=== PATIENT | male | born 1930 | race Caucasian/White ===

== ENCOUNTER 2018-05-15 11:49 | Inpatient (IN) | payer MEDICARE, BC ==
[2018-05-15] MEDS ORDERED: SODIUM CHLORIDE 0.9% 1,000 ML IV STA (12:01)
[2018-05-15] MEDS ORDERED: HEPARIN SODIUM,PORCINE 5,000 UNIT/ML 1 ML VIAL IV PRN (12:02)
[2018-05-15] MEDS ORDERED: HEPARIN SODIUM,PORCINE 5,000 UNIT/ML 1 ML VIAL IV ONE (12:02)
[2018-05-15] MEDS ORDERED: NITROGLYCERIN-D5W PMX 50 MG in DEXTROSE/WATER 1 250ML.BAG IV ONE (12:02)
[2018-05-15] MEDS ORDERED: HEPARIN SOD,PORK IN 0.45% NACL 25,000 UNIT in 0.45% NACL 1 250ML.BAG IV SCH (12:15)
[2018-05-15 12:26] LABS: Basophils % (A) 0 %; Eosinophils # (A) 0.1 k/uL (0-0.7); Eosinophils % (A) 1 %; HCT 42.2 % (39.0-53.0); HGB 13.4 gm/dL (13.0-17.5); Lymphocytes # (A) 1.2 k/uL (1.0-4.8); Lymphocytes % (A) 12 %; MCH 31.3 pg (25.0-35.0); MCHC 31.7 g/dL (31.0-37.0); MCV 98.6 fL (80.0-100.0); Mean Platelet Volume 7.3; Monocytes # (A) 0.6 k/uL (0-1.0); Monocytes % (A) 6 %; Neutrophils # (A) 7.8 k/uL (1.3-7.7); Neutrophils % (A) 79 %; Platelet Count 171 k/uL (150-450); RBC 4.28 m/uL (4.30-5.90); RDW 13.3 % (11.5-15.5); WBC 9.9 k/uL (3.8-10.6)
[2018-05-15] MEDS: HEPARIN SOD,PORK IN 0.45% NACL 25,000 UNIT in 0.45% NACL 1 250ML.BAG IV SCH (12:26)
[2018-05-15] MEDS ORDERED: METOPROLOL TARTRATE 5 MG/5 ML VIAL IVP STA (12:28)
[2018-05-15] MEDS ORDERED: METOPROLOL TARTRATE 50 MG TAB PO STA (12:28)
[2018-05-15] MEDS ORDERED: ATORVASTATIN 80 MG TAB PO STA (12:30)
[2018-05-15] MEDS ORDERED: AMIODARONE 450 MG in DEXTROSE 5% IN WATER 250 ML IV ONE ×2 (12:30)
--- NOTE | 2018-05-15 12:30 | ED ---
Chest Pain HPI - General Chief Complaint: Chest Pain Stated Complaint: Post cardiac arrest Time Seen by Provider: 05/15/18 12:01 Source: patient, EMS, RN notes reviewed, old records reviewed Mode of arrival: EMS Limitations: no limitations - History of Present Illness Initial Comments: This is an 88-year-old male to the ER for evaluation, patient since today for evaluation in transfer and regards to chest pain, originally called EMS and chest pain was taken to [facility]. Upon arrival at [facility] he had a ventricular fibrillation arrest. CPR was started patient was defibrillated and is currently in atrial fibrillation. Patient is transferred again to emergency room. Patient continues to have chest pain upon arrival. History obtained from patient's chart as well as EMS - Related Data Home Medications Medication Instructions Recorded Confirmed Aspirin 1 tab PO DAILY 09/18/13 09/23/13 Atenolol [Tenormin] 0.5 tab PO BID 09/18/13 09/23/13 Azelastine HCl [Astepro] 1 spr NASAL DAILY 09/18/13 09/23/13 Multivitamin/Iron/Folic Acid 1 tab PO DAILY 09/18/13 09/23/13 [Centrum Complete Multivit Tab] Naproxen 1 tab PO BID PRN 09/18/13 09/23/13 Nitroglycerin Sl Tabs [Nitrostat] 1 tab SUBLINGUAL DIRECTED PRN 09/18/1307/03 Travoprost [Travatan Z 0.004%] 1 drop BOTH EYES DAILY 09/18/13 09/23/13 Timolol [Betimol 0.5% Ophth Soln] 1 drop BOTH EYES DAILY 09/21/13 09/23/13 Previous Rx's Medication Instructions Recorded Clopidogrel [Plavix] 75 mg PO DAILY #90 tablet 09/24/13 Pravastatin Sodium [Pravachol] 20 mg PO DAILY #90 tab 09/24/13 Allergies Allergy/AdvReac Type Severity Reaction Status Date / Time No Known Allergies Allergy Verified 05/15/18 12:01 Review of Systems ROS Statement: Those systems with pertinent positive or pertinent negative responses have been documented in the HPI. ROS Other: All systems not noted in ROS Statement are negative. Past Medical History Past Medical History: Chest Pain / Angina, CVA/TIA, Dementia, Eye Disorder, Hearing Disorder / Deafness, Hyperlipidemia, Osteoarthritis (OA), Prostate Disorder Additional Past Medical History / Comment(s): GLAUCOMA. Hepatitis (surgical per pt) History of Any Multi-Drug Resistant Organisms: None Reported Past Surgical History: Heart Catheterization, Hernia Repair, Joint Replacement, Orthopedic Surgery Past Anesthesia/Blood Transfusion Reactions: No Reported Reaction Past Psychological History: No Psychological Hx Reported Smoking Status: Never smoker Past Alcohol Use History: None Reported Past Drug Use History: None Reported - Past Family History Mother Family Medical History: CVA/TIA Father Family Medical History: Cancer Additional Family Medical History / Comment(s): brain ca Brother(s) Family Medical History: Cancer, Coronary Artery Disease (CAD) Additional Family Medical History / Comment(s): 1 brother CAD & the other brother liver ca General Exam Limitations: no limitations General appearance: alert, in no apparent distress, anxious Head exam: Present: atraumatic, normocephalic, normal inspection Eye exam: Present: normal appearance, PERRL, EOMI. Absent: scleral icterus, conjunctival injection, periorbital swelling ENT exam: Present: normal exam, mucous membranes moist Neck exam: Present: normal inspection. Absent: tenderness, meningismus, lymphadenopathy Respiratory exam: Present: normal lung sounds bilaterally. Absent: respiratory distress, wheezes, rales, rhonchi, stridor Cardiovascular Exam: Present: regular rate, normal rhythm, normal heart sounds. Absent: systolic murmur, diastolic murmur, rubs, gallop, clicks GI/Abdominal exam: Present: soft, normal bowel sounds. Absent: distended, tenderness, guarding, rebound, rigid Extremities exam: Present: normal inspection, full ROM, normal capillary refill. Absent: tenderness, pedal edema, joint swelling, calf tenderness Back exam: Present: normal inspection Neurological exam: Present: alert, oriented X3, CN II-XII intact Psychiatric exam: Present: normal affect, normal mood Skin exam: Present: warm, dry, intact, normal color. Absent: rash Course Vital Signs 05/15/18 12:01 Temperature 98.1 F Pulse Rate 79 Respiratory 18 Rate Blood Pressure 130/99 O2 Sat by Pulse 95 Oximetry - Reevaluation(s) Reevaluation #1: 05/15/18 12:32 Medical records reviewed including prior EKG Reevaluation #2: 05/15/18 12:32 Spoke with cardiology, patient presentation, were able to see both EKGs as well as prior EKGs. Dr. Donovan did come and evaluate patient in the emergency room Chest Pain MDM - MDM This 88 male the ER with known history of severe coronary artery disease, patient will be taken to the [facility] regarding ventricular fibrillation arrest secondary to acute coronary syndrome. Patient currently on heparin, nitro, given low dose beta tristan as well as amiodarone. Critical Care Time Critical Care Time: Yes Total Critical Care Time: 31 Disposition Clinical Impression: Ventricular fibrillation, Cardiopulmonary arrest with successful resuscitation , ST elevation myocardial infarction (STEMI) Disposition: ADMITTED IP TO THIS HOSP Condition: Critical Is patient prescribed a controlled substance at d/c from ED?: No Referrals: Gary Kimble MD [Primary Care Provider] - 1-2 days
[2018-05-15 12:33] LABS: INR 1.1 (<1.2); Prothrombin Time 11.8 sec (9.0-12.0)
[2018-05-15] MEDS ORDERED: METOPROLOL TARTRATE 25 MG TAB PO STA (12:33)
--- NOTE | 2018-05-15 12:40 | P.CRDCN ---
History of Present Illness Chief complaint: ami, st elevation History of present illness: This is Dr. Aguilar dictating a consult on this patient The patient was interviewed and examined by me Patient is seen in the emergency room urgent consult IMPRESSION / ASSESSMENT: Acute ST elevation inferior posterior RI transferred after cardiac arrest from [facility] PLAN: IV meter protocol 2.5-5 mg, by mouth metoprolol 50 mg by mouth 1, atorvastatin 80 mg by mouth, IV amiodarone 150 mrem slowly over 30 minutes Urgent coronary angiography and appropriate intervention if feasible Discussed with Dr. Lopez HPI Patient started experiencing chest discomfort today and called the EMS. When EMS arrived he went into ventricular fibrillation and was resuscitated and then transferred to [facility]. Received a call from [facility] the patient is being transferred over here with possible ST elevation RI When he arrived I was called by the ER physician Dr. Reynolds Patient is still experiencing chest pain on IV nitroglycerin. His first 12- lead ECG here confirmed an ST elevation RI acute, inferior posterior and lateral Vitals stable blood pressure 128 mmHg systolic Heart rate in the 80s Past history of known coronary artery disease with severe calcific occlusive disease multiple segmental lesions in LAD diagonal intermediate and OM branches Past coronary angiography in 2013. On medical treatment. Unable to tolerate statins. Followed by Dr. Kamryn HAGER: No fever chills or rigors, no cough, phlegm or expectoration, no nausea, vomiting or diarrhea, no hematuria, dysuria, no musculoskeletal complaints, no strokes or seizures, no skin lesions. EXAMINATION Vitals stable patient still having pain Breath sounds reduced bilaterally but no rhonchi no crackles Heart sounds S1-S2 are soft no murmurs or gallops no rub Abdomen soft nontender External days warm no edema No respiratory distress REVIEW OF LABS, ECG Underlying atrial fibrillation and twelve-lead ECG with ST elevation in the high lateral leads with significant ST depression in V1 and V2 V3 and V4 as well as 3 and aVF consistent with a large inferoposterolateral acute RI Past Medical History Past Medical History: Chest Pain / Angina, CVA/TIA, Dementia, Eye Disorder, Hearing Disorder / Deafness, Hyperlipidemia, Osteoarthritis (OA), Prostate Disorder Additional Past Medical History / Comment(s): GLAUCOMA. Hepatitis (surgical per pt) History of Any Multi-Drug Resistant Organisms: None Reported Past Surgical History: Heart Catheterization, Hernia Repair, Joint Replacement, Orthopedic Surgery Past Anesthesia/Blood Transfusion Reactions: No Reported Reaction Past Psychological History: No Psychological Hx Reported Smoking Status: Never smoker Past Alcohol Use History: None Reported Past Drug Use History: None Reported - Past Family History Mother Family Medical History: CVA/TIA Father Family Medical History: Cancer Additional Family Medical History / Comment(s): brain ca Brother(s) Family Medical History: Cancer, Coronary Artery Disease (CAD) Additional Family Medical History / Comment(s): 1 brother CAD & the other brother liver ca Medications and Allergies Home Medications Medication Instructions Recorded Confirmed Type Aspirin 1 tab PO DAILY 09/18/13 09/23/13 History Atenolol [Tenormin] 0.5 tab PO BID 09/18/13 09/23/13 History Azelastine HCl [Astepro] 1 spr NASAL DAILY 09/18/13 09/23/13 History Multivitamin/Iron/Folic Acid 1 tab PO DAILY 09/18/13 09/23/13 History [Centrum Complete Multivit Tab] Naproxen 1 tab PO BID PRN 09/18/13 09/23/13 History Nitroglycerin Sl Tabs [Nitrostat] 1 tab SUBLINGUAL DIRECTED PRN 09/18/1307/03 History Travoprost [Travatan Z 0.004%] 1 drop BOTH EYES DAILY 09/18/13 09/23/13 History Timolol [Betimol 0.5% Ophth Soln] 1 drop BOTH EYES DAILY 09/21/13 09/23/13 History Clopidogrel [Plavix] 75 mg PO DAILY #90 tablet 09/24/13 Rx Pravastatin Sodium [Pravachol] 20 mg PO DAILY #90 tab 09/24/13 Rx Allergies Allergy/AdvReac Type Severity Reaction Status Date / Time No Known Allergies Allergy Verified 05/15/18 12:01 Physical Exam Vitals: Vital Signs Temp Pulse Resp BP Pulse Ox 05/15/18 12:01 98.1 F 79 18 130/99 95 Intake and Output 05/14/18 05/15/18 05/15/18 22:59 06:59 14:59 Other: Weight 77.111 kg Results 05/15/18 12:02 CBC 05/15/18 Range/Units 12:02 WBC 9.9 (3.8-10.6) k/uL RBC 4.28 L (4.30-5.90) m/uL Hgb 13.4 (13.0-17.5) gm/dL Hct 42.2 (39.0-53.0) % Plt Count 171 (150-450) k/uL Current Medications Generic Name Dose Route Start Last Admin Trade Name Freq PRN Reason Stop Dose Admin Heparin Sodium (Porcine) 0 unit 05/15/18 12:02 Heparin IV PER PROTOCOL PRN Low PTT Protocol Nitroglycerin/Dextrose 50 mg/ 250 mls @ 6 mls/hr 05/15/18 12:02 05/15/18 12: 15 IV Solution IV 05/16/18 12:01 10 mcg/min .Q24H ONE 3 mls/hr Administration Protocol 20 MCG/MIN Sodium Chloride 1,000 mls @ 100 mls/hr 05/15/18 12:01 Saline 0.9% IV 05/15/18 22:00 .Q10H STA Heparin Sodium/Sodium Chloride 250 mls @ 9.25 mls/hr 05/15/18 12:12 05/15/18 12:26 25,000 unit/ Sodium Chloride IV 12 units/kg/hr .Q24H AMIRAH 9.25 mls/hr Administration Protocol 12 UNITS/KG/HR Amiodarone HCl 450 mg/ 259 mls @ 34.53 mls/hr 05/15/18 12:30 Dextrose/Water IV 05/15/18 20:00 .Q7H31M ONE Protocol 1 MG/MIN Intake and Output 05/14/18 05/15/18 05/15/18 22:59 06:59 14:59 Other: Weight 77.111 kg Patient Weight 05/16/18 06:59 Weight 77.111 kg 05/15/18 12:02
[2018-05-15] MEDS ORDERED: NITROGLYCERIN SL TABS 0.4 MG TAB SUBLINGUAL PRN ×2 (12:44→15:33)
[2018-05-15] MEDS ORDERED: SODIUM CHLORIDE 0.9% 1,000 ML IV SCH ×2 (12:45→15:45)
[2018-05-15 12:57] LABS: ALT 71 U/L (21-72); AST 67 U/L (17-59); Albumin 3.5 g/dL (3.5-5.0); Alkaline Phosphatase 60 U/L (38-126); Anion Gap 8 mmol/L; Blood Urea Nitrogen 22 mg/dL (9-20); Calcium 8.6 mg/dL (8.4-10.2); Carbon Dioxide 23 mmol/L (22-30); Chloride 109 mmol/L (98-107); Glucose 147 mg/dL (74-99); Magnesium 1.8 mg/dL (1.6-2.3); Potassium 4.1 mmol/L (3.5-5.1); Sodium 140 mmol/L (137-145); Total Bilirubin 0.6 mg/dL (0.2-1.3); Total Protein 6.6 g/dL (6.3-8.2)
[2018-05-15 12:58] LABS: Partial Thromboplastin Time 60.7 sec (22.0-30.0)
[2018-05-15] MEDS ORDERED: IV FLUID CONTINUATION 950 ML IV ONE (13:00)
[2018-05-15] MEDS ORDERED: SODIUM CHLORIDE 0.9% 1,000 ML IV ONE (13:00)
[2018-05-15 13:02] LABS: Creatine Kinase MB 2.4 ng/mL (0.0-2.4)
[2018-05-15] MEDS ORDERED: MIDAZOLAM 2 MG/2 ML VIAL IVP ONE (13:04)
[2018-05-15] MEDS ORDERED: LIDOCAINE 1% INJ 10MG/ML (20 ML MDV) SQ ONE ×2 (13:09→14:30)
[2018-05-15 13:14] LABS: Troponin I 0.036 ng/mL (0.000-0.034)
[2018-05-15] MEDS ORDERED: BIVALIRUDIN BOLUS 250 MG/50 ML IV ONE (13:22)
[2018-05-15] MEDS ORDERED: BIVALIRUDIN 250 MG in SODIUM CHLORIDE 0.9% 50 ML IV ONE ×2 (13:23→14:10)
[2018-05-15] MEDS ORDERED: IOPAMIDOL-370 125ML BTL INJ ONE (13:38)
[2018-05-15] MEDS ORDERED: VERAPAMIL 2.5 MG/ML 2 ML AMP ONE (14:23)
[2018-05-15] MEDS ORDERED: LIDOCAINE 1% INJ 10MG/ML (20 ML MDV) ONE (14:23)
[2018-05-15] MEDS ORDERED: LIDOCAINE 1% 20 ML VIAL (10MG/ML) FOR IV START SQ ONE (14:30)
[2018-05-15] MEDS ORDERED: VERAPAMIL SYRINGE (5 MG/10 ML) INTRAARTER ONE (14:31)
[2018-05-15] MEDS ORDERED: IOPAMIDOL-370 100ML BTL INJ ONE ×2 (14:35→15:17)
[2018-05-15] MEDS ORDERED: ONDANSETRON 4 MG/2 ML VIAL ONE (14:36)
[2018-05-15] MEDS ORDERED: ONDANSETRON 4 MG/2 ML VIAL IVP ONE (14:38)
[2018-05-15] MEDS ORDERED: CLOPIDOGREL 75 MG TAB ONE ×2 (15:14→15:15)
[2018-05-15] MEDS ORDERED: CLOPIDOGREL 75 MG TAB PO ONE (15:18)
[2018-05-15] MEDS ORDERED: ATROPINE SULFATE 0.1 MG/ML 10ML SYRINGE IV PRN (15:33)
[2018-05-15] MEDS ORDERED: ZOLPIDEM 5 MG TAB PO PRN (15:33)
[2018-05-15] MEDS ORDERED: MAG HYDROX/AL HYDROX/SIMETH 30 ML CUP PO PRN (15:33)
[2018-05-15] MEDS ORDERED: RX INFO: IV CONTRAST WAS GIVEN 1 EACH MISC MISCELLANE PRN (15:33)
[2018-05-15 15:58] LABS: Glucose,Whole Blood 116 mg/dL (75-99)
--- NOTE | 2018-05-15 16:35 | CC ---
CARDIAC CATHETERIZATION REPORT DATE OF SERVICE: May 15, 2018 PERFORMING PHYSICIAN: Tang Lopez MD, market maker. PROCEDURE PERFORMED: 1. Selective right and left coronary angiogram. 2. Balloon angioplasty of the first obtuse marginal branch of the left circumflex. INDICATION: This is a very pleasant 88-year-old gentleman with known history of coronary artery disease as well as hypertension and dyslipidemia who presented to the emergency room with chest discomfort and ED. He did have a cardiac arrest with VFib. The patient EKG after that revealed sinus rhythm with ischemic ST changes in the high lateral leads. He was seen and evaluated by Dr. Aguilar who recommended proceeding with a heart catheterization for the patient. Please note that the patient did have a heart catheterization in 2013 and that revealed severe triple-vessel coronary artery disease with heavily calcified right and left coronary systems and because of that, the patient was treated medically. APPROACH: 1. Right common femoral artery. 2. Right radial artery. COMPLICATION: None. LEVEL OF SEDATION: Moderate with sedation length of 2 hours. PROCEDURE DESCRIPTION: After obtaining an informed consent, the patient was brought to cardiac optical lab technician. The right common femoral artery was cannulated using micropuncture technique and a micropuncture wire passed easily then I placed a 6-[place] sheath in the right common femoral artery. After that I did exchange my 11 cm sheath into 23 cm sheath because of tortuous aortoiliac segments. After that, I did selective right and left coronary angiogram using JR4 and JL4 catheters. At that point, I decided to intervene on the first obtuse marginal branch of the left circumflex, which I attempted from the right common femoral artery and I was unable. Then I was able to do it from the right radial approach. Please see a separate paragraph for that. SELECTIVE CORONARY ANGIOGRAM: 1. The right coronary artery is a large caliber vessel. It is a dominant vessel. The right itself is extremely calcified. The proximal portion has intermediate disease only. The mid right appeared to have mild disease only and the right distally has mild disease only and bifurcates into PDA and PLV branches. The PDA and PLV branches are diffusely diseased up to about 90-95 percent. 2. The left main is calcified with mild disease only. It bifurcates into the circumflex and left anterior descending artery as well as ramus intermedius. 3. The left circumflex: The left circumflex is a large caliber vessel. It is a nondominant vessel. The proximal circumflex gives rise into a medium-sized obtuse marginal branch which is occluded in the proximal portion. The mid and distal circumflex appeared to have mild disease only. 4. The ramus intermedius is a medium caliber vessel with a critical lesion in the ostium. 5. The proximal LAD appeared to have mild disease only. The mid LAD has a lesion appeared to be in the range of 90% to 95%. The LAD distally is diffusely diseased up to about 90 to 95%. 6. PCI of the OM 1: 7. Anticoagulation was initiated using Angiomax. I attempted engaging the left main using JL-4, JL-4 5, EBU, XB 3 5, and multipurpose guide, and I was unable because of the extremely tortuous aortoiliac segments as well as extremely tortuous aorta. At that point, I decided to come from the arm. I did access the right radial artery using micropuncture technique, the micropuncture wire passed easily then I placed a 6-[place] sheath in the right radial artery. After that I was able to engage the left main partially using JL3.5 guide. I did wire the left circumflex using a run-through wire and I did wire OM1 using a whisper wire. I did balloon angioplasty of the OM 1 using, I tried using the 2 0 balloon and I was unable. Then I tried using 1.5 mm balloon which was inflated under 14 atmospheres multiple times inside OM1. I was able to restore partial flow in the OM 1. At that point, I decided to stop because we reached our maximize contrast. CONCLUSION: 1. Extremely calcified right and left coronary systems. 2. Severe triple-vessel coronary artery disease as described above. 3. Occluded OM 1 of the left circumflex which is new compared to heart catheterization in 2014. 4. Balloon angioplasty of OM 1 using 2 0 mm balloon with partially restoring flow in OM1. POSTPROCEDURE MANAGEMENT: 1. Dual anti-platelet therapy. 2. Risk factor modifications. 3. Follow up with the patient. MMODL / IJN: [id number] /
[2018-05-15] MEDS ORDERED: DEXTROSE 5% IN WATER 100 ML with AMIODARONE 150 MG IV ONE (17:00)
[2018-05-15 18:40] LABS: Creatine Kinase MB 72.4 ng/mL (0.0-2.4)
[2018-05-15 18:45] LABS: Troponin I 3.84 ng/mL (0.000-0.034)
[2018-05-15] MEDS: METOPROLOL TARTRATE 25 MG TAB PO SCH (22:06)
--- NOTE | 2018-05-15 22:25 | P.HPIM ---
History of Present Illness H&P Date: 05/15/18 Chief Complaint: Chest pain Patient is a 88-year-old male with a known history of coronary artery disease and multiple stent placement, severe calcific occlusive disease, history of CVA/ TIA, dementia and hyperlipidemia initially presented to [facility] with complaints of chest discomfort. Patient woke up in the morning and had braek fast, suddenly developed sharp pains in the left arm and radiating to the retrosternal chest. Associated with some nausea. No diaphoresis. No headache or dizziness. Patient called EMS and was initially taken to [facility] where he was found to be in atrial fibrillation and was resuscitated. Patient was started on nitro drip. He Patient was transferred to [facility] for further evaluation. Patient was found have ST elevation in the lateral leads. Cardiology was consulted and patient was immediately taken to cardiac catheterization . Cardiac catheterization showed severe calcific right and left coronary system. Severe triple-vessel coronary artery disease. Recommended medical management with the dual antiplatelet therapy. Currently patient was transferred to MICU. Review of Systems Constitutional: Patient denies any fever or chills . No generalized weakness or weight loss. Abdomen: Patient denied nausea vomiting and diarrhea and abdominal pain. Cardiovascular: Patient does have intermittent chest pain. No short of breath no palpitations. Respiratory: patient denied any cough is from production. No shortness of breath Neurologic: Patient denied any numbness or tingling headache. Musculoskeletal: Patient denies any complaints of joint swelling or deformity. Skin: Negative Psychiatric: Negative Endocrine: No heat or cold intolerance. No recent weight gain. Genitourinary: No dysuria or hematuria. All other 14 point ROS negative except the above Past Medical History Past Medical History: Chest Pain / Angina, CVA/TIA, Dementia, Eye Disorder, Hearing Disorder / Deafness, Hyperlipidemia, Osteoarthritis (OA), Prostate Disorder Additional Past Medical History / Comment(s): GLAUCOMA. Hepatitis (surgical per pt) History of Any Multi-Drug Resistant Organisms: None Reported Past Surgical History: Heart Catheterization, Hernia Repair, Joint Replacement, Orthopedic Surgery Past Anesthesia/Blood Transfusion Reactions: No Reported Reaction Past Psychological History: No Psychological Hx Reported Smoking Status: Never smoker Past Alcohol Use History: None Reported Past Drug Use History: None Reported - Past Family History Mother Family Medical History: CVA/TIA Father Family Medical History: Cancer Additional Family Medical History / Comment(s): brain ca Brother(s) Family Medical History: Cancer, Coronary Artery Disease (CAD) Additional Family Medical History / Comment(s): 1 brother CAD & the other brother liver ca Medications and Allergies Home Medications Medication Instructions Recorded Confirmed Type Aspirin 81 mg PO DAILY 09/18/13 05/15/18 History Atenolol [Tenormin] 25 mg PO DAILY 09/18/13 05/15/18 History Nitroglycerin Sl Tabs [Nitrostat] 1 tab SUBLINGUAL Q5M PRN 09/18/13 05/15/18 History Pravastatin Sodium [Pravachol] 20 mg PO DAILY #90 tab 09/24/13 05/15/18 Rx Brinzolamide/Brimonidine Tart 1 drop BOTH EYES BID 05/15/18 05/15/18 History [Simbrinza 1%-0.2% Eye Drops] Ibuprofen [Motrin] 800 mg PO TID 05/15/18 05/15/18 History Latanoprost/Pf [Latanoprost 0.005% 1 drop BOTH EYES HS 05/15/18 05/15/18 History Eye Drop] Meloxicam [Mobic] 15 mg PO DAILY 05/15/18 05/15/18 History Metoprolol Tartrate [Lopressor] 25 mg PO DAILY 05/15/18 05/15/18 History Ranitidine HCl [Zantac] 150 mg PO BID 05/15/18 05/15/18 History Allergies Allergy/AdvReac Type Severity Reaction Status Date / Time No Known Allergies Allergy Verified 05/15/18 13:21 Physical Exam Vitals: Vital Signs Temp Pulse Resp BP Pulse Ox 05/15/18 12:40 69 18 121/91 05/15/18 12:30 76 18 128/93 96 05/15/18 12:01 98.1 F 79 18 130/99 95 Intake and Output 05/15/18 05/15/18 05/15/18 06:59 14:59 22:59 Intake Total 786.5 Balance 786.5 Intake: IV 786.5 Other: Weight 77.111 kg PHYSICAL EXAMINATION: Patient is lying in the bed comfortably, no acute distress, awake alert and oriented.. HEENT: Normocephalic. Neck is supple. Pupils reactive. Nostrils clear. Oral cavity is moist. Ears reveal no drainage. Neck reveals no JVD, carotid bruits, or thyromegaly. CHEST EXAMINATION: Trachea is central. Symmetrical expansion. Bibasilar diminished air entry. Lung casarez clear to auscultation and percussion. CARDIAC: Normal S1, S2 with no gallops. No murmurs ABDOMEN: Soft. Bowel sounds normal. No organomegaly. No abdominal bruits. Extremities: reveal no edema. No clubbing or cyanosis Neurologically awake, alert, oriented x3 with well-coordinated movements. No focal deficits noted Skin: No rash or skin lesions. Psychiatric: Coperative. Nonsuicidal Musculoskeletal: No joint swelling or deformity. Normal range of motion. Results CBC & Chem 7: 05/15/18 12:02 05/15/18 12:02 Labs: Abnormal Lab Results - Last 24 Hours (Table) 05/15/18 05/15/18 05/15/18 Range/Units 12:02 12:02 12:02 RBC 4.28 L (4.30-5.90) m/uL Neutrophils # 7.8 H (1.3-7.7) k/uL APTT (22.0-30.0) sec Chloride 109 H (98-107) mmol/L BUN 22 H (9-20) mg/dL Glucose 147 H (74-99) mg/dL AST 67 H (17-59) U/L Troponin I 0.036 H* (0.000-0.034) ng/mL 05/15/18 Range/Units 12:02 RBC (4.30-5.90) m/uL Neutrophils # (1.3-7.7) k/uL APTT 60.7 H (22.0-30.0) sec Chloride (98-107) mmol/L BUN (9-20) mg/dL Glucose (74-99) mg/dL AST (17-59) U/L Troponin I (0.000-0.034) ng/mL Assessment and Plan Assessment: Acute ST elevated inferior wall [place] status post cardiac catheterization Severe calcific coronary system and triple-vessel disease. Medical management the dual antiplatelet therapy recommended Chest pain/angina Ventricular tachycardia Coronary artery disease with history of multiple stent placement History of CVA/TIA dementia Hearing disorder/deafness Hyperlipidemia Osteoarthritis Degenerative joint disease BPH Plan: Patient will be continued on heparin drip and continued with the nitro drip as well. Patient is still having intermittent chest pains. Otherwise patient is status post cardiac catheterization and medical management was recommended as per cardiology. Continue with telemetry monitoring currently with aspirin Plavix and statins and beta blockers. Follow up closely and further recommendations based on the clinical course. Prognosis is guarded with multiple medical problems and comorbid conditions. Time with Patient: Greater than 30
[2018-05-16 00:34] LABS: Troponin I 11.2 ng/mL (0.000-0.034)
[2018-05-16] MEDS: HEPARIN SOD,PORK IN 0.45% NACL 25,000 UNIT in 0.45% NACL 1 250ML.BAG IV SCH ×2 (00:55→23:24)
[2018-05-16] MEDS ORDERED: ONDANSETRON 4 MG/2 ML VIAL IVP PRN (03:42)
[2018-05-16] MEDS ORDERED: ACETAMINOPHEN TAB 325 MG TAB PO PRN (03:42)
[2018-05-16 05:20] LABS: Basophils % (A) 0 %; Eosinophils % (A) 0 %; HCT 37.7 % (39.0-53.0); HGB 12.4 gm/dL (13.0-17.5); Lymphocytes # (A) 0.7 k/uL (1.0-4.8); Lymphocytes % (A) 6 %; MCH 32.1 pg (25.0-35.0); MCHC 32.8 g/dL (31.0-37.0); Mean Platelet Volume 7.5; Monocytes % (A) 9 %; Neutrophils # (A) 9.7 k/uL (1.3-7.7); Neutrophils % (A) 83 %; Platelet Count 155 k/uL (150-450); RBC 3.85 m/uL (4.30-5.90); RDW 13.4 % (11.5-15.5); WBC 11.7 k/uL (3.8-10.6)
[2018-05-16 05:25] LABS: INR 1.1 (<1.2); Prothrombin Time 11.3 sec (9.0-12.0)
[2018-05-16 05:33] LABS: Anion Gap 7 mmol/L; Blood Urea Nitrogen 23 mg/dL (9-20); Calcium 8.4 mg/dL (8.4-10.2); Carbon Dioxide 22 mmol/L (22-30); Chloride 108 mmol/L (98-107); Cholesterol 141 mg/dL (<200); Glucose 123 mg/dL (74-99); HDL Cholesterol 50 mg/dL (40-60); LDL Cholesterol,Calculated 80 mg/dL (0-99); Magnesium 1.8 mg/dL (1.6-2.3); Phosphorus 3.8 mg/dL (2.5-4.5); Sodium 137 mmol/L (137-145); Triglycerides 55 mg/dL (<150)
[2018-05-16 05:34] LABS: Potassium 4.8 mmol/L (3.5-5.1)
[2018-05-16] MEDS ORDERED: Magnesium Replacement Protocol 1 EACH MISC MISCELLANE PRN (07:01)
[2018-05-16] MEDS: MAGNESIUM SULFATE-D5W PMX 1 GM in DEXTROSE/WATER 1 100ML.BAG IVPB SCH ×2 (07:09→08:22)
[2018-05-16] MEDS: ASPIRIN 325 MG TAB PO SCH (08:23)
[2018-05-16] MEDS: ATORVASTATIN 80 MG TAB PO SCH (08:23)
[2018-05-16] MEDS: METOPROLOL TARTRATE 25 MG TAB PO SCH (08:23)
[2018-05-16] MEDS ORDERED: METOPROLOL TARTRATE 25 MG TAB PO STA (09:57)
[2018-05-16] MEDS ORDERED: HEPARIN SODIUM,PORCINE 5,000 UNIT/ML 1 ML VIAL IV STA (11:00)
[2018-05-16 11:29] VITALS: BMI 27.1
--- NOTE | 2018-05-16 13:08 | P.PN ---
Subjective Patient is sitting in a chair looks comfortable no chest discomfort no back discomfort at this time Yesterday he was admitted with an acute ST elevation MA and subsequently had a cardiac arrest He underwent coronary angiography which revealed severe coronary artery disease extremely calcified vessels multiple stenotic, sequential lesions Coronary intervention was performed with great difficulty On examination Blood pressure 110/74 mmHg pulse rate in the 60s Normal heart sounds no murmurs or gallops Breath sounds are clear Neck 70s warm no edema Impression severe end-stage coronary artery disease with coronary anatomy that is not suitable for any form of intervention Unfortunately the patient had an acute ST segment elevation MA with cardiac arrest and he was taken to [facility] for [facility] intervention suggest Increase metoprolol to 50 mg twice daily Continue dual antiplatelet therapy Atorvastatin 80 mg by mouth daily Add a very detailed discussion with the patient his daughter and son-in-law and explained that he has end-stage coronary artery disease He needs to be on as much statins as he can possibly tolerate because he is had intolerance to statins in the past. This is a very difficult situation and it is very likely that he will suffer repeat coronary in cells, acute MIs. His last MA was in December shows a non-Q-wave MA and at that time and elected medical treatment His risk of ventricular fibrillation during his next ischemic event is high I would recommend medical treatment We have very few options for any meaningful improvement/stabilizing his disease process I discussed this with Dr. Harry this morning Objective - Vital Signs Vital signs: Vital Signs Temp 98.1 F 05/16/18 08:00 Pulse 64 05/16/18 11:30 Resp 16 05/16/18 11:30 BP 110/74 05/16/18 11:30 Pulse Ox 94 L 05/16/18 11:30 Intake & Output 05/15/18 05/16/18 05/16/18 18:59 06:59 18:59 Intake Total 1196.5 728.471 301.808 Output Total 1000 565 160 Balance 196.5 163.471 141.808 Weight 77.111 kg 83.3 kg 83.3 kg Intake: IV 1196.5 613 109 Heparin Sod,Pork in 0.45% 63 9 NaCl 25,000 unit In 0.45 % NaCl 1 250ml.bag @ 12 UNITS/KG/HR 9.25 mls/hr IV .Q24H [facility] Rx#: [id number] Sodium Chloride 0.9% 1, 400 400 000 ml @ 100 mls/hr IV . Q10H [facility] Rx#:[id number] Sodium Chloride carrier 10 150 100 Intake, IV Titration 115.471 92.808 Amount Heparin Sod,Pork in 0.45% 115.471 92.808 NaCl 25,000 unit In 0.45 % NaCl 1 250ml.bag @ 12 UNITS/KG/HR 9.25 mls/hr IV .Q24H [facility] Rx#: [id number] Oral 100 Output: Urine 1000 565 160 Other: Voiding Method Indwelling Catheter Indwelling Catheter Indwelling Catheter ABP, PAP, CO, CI - Last Documented Arterial Blood Pressure 111/62 - Labs CBC & Chem 7: 05/16/18 04:53 05/16/18 04:53 Labs: Abnormal Lab Results - Last 24 Hours (Table) 05/15/18 05/15/18 05/15/18 Range/Units 12:02 15:42 17:59 WBC (3.8-10.6) k/uL RBC (4.30-5.90) m/uL Hgb (13.0-17.5) gm/dL Hct (39.0-53.0) % Neutrophils # (1.3-7.7) k/uL Lymphocytes # (1.0-4.8) k/uL APTT (22.0-30.0) sec Chloride (98-107) mmol/L BUN (9-20) mg/dL Glucose (74-99) mg/dL POC Glucose (mg/dL) 116 H (75-99) mg/dL Total Creatine Kinase 511 H (55-170) U/L CK-MB (CK-2) 72.4 H (0.0-2.4) ng/mL Troponin I 0.036 H* 3.840 H* (0.000-0.034) ng/mL 05/15/18 05/16/18 05/16/18 Range/Units 23:23 04:53 04:53 WBC 11.7 H (3.8-10.6) k/uL RBC 3.85 L (4.30-5.90) m/uL Hgb 12.4 L (13.0-17.5) gm/dL Hct 37.7 L (39.0-53.0) % Neutrophils # 9.7 H (1.3-7.7) k/uL Lymphocytes # 0.7 L (1.0-4.8) k/uL APTT 32.0 H (22.0-30.0) sec Chloride (98-107) mmol/L BUN (9-20) mg/dL Glucose (74-99) mg/dL POC Glucose (mg/dL) (75-99) mg/dL Total Creatine Kinase 826 H (55-170) U/L CK-MB (CK-2) 121.0 H (0.0-2.4) ng/mL Troponin I 11.200 H* (0.000-0.034) ng/mL 05/16/18 05/16/18 Range/Units 04:53 07:10 WBC (3.8-10.6) k/uL RBC (4.30-5.90) m/uL Hgb (13.0-17.5) gm/dL Hct (39.0-53.0) % Neutrophils # (1.3-7.7) k/uL Lymphocytes # (1.0-4.8) k/uL APTT 33.8 H (22.0-30.0) sec Chloride 108 H (98-107) mmol/L BUN 23 H (9-20) mg/dL Glucose 123 H (74-99) mg/dL POC Glucose (mg/dL) (75-99) mg/dL Total Creatine Kinase (55-170) U/L CK-MB (CK-2) (0.0-2.4) ng/mL Troponin I (0.000-0.034) ng/mL
[2018-05-16] MEDS: AMIODARONE 450 MG in DEXTROSE 5% IN WATER 250 ML IV SCH ×8 (13:33→20:58)
[2018-05-16] MEDS: CLOPIDOGREL 75 MG TAB PO SCH (13:33)
[2018-05-16] MEDS: METOPROLOL TARTRATE 50 MG TAB PO SCH (21:03)
[2018-05-17 05:03] LABS: Basophils % (A) 0 %; Eosinophils # (A) 0.1 k/uL (0-0.7); Eosinophils % (A) 1 %; HCT 37.1 % (39.0-53.0); HGB 12.1 gm/dL (13.0-17.5); Lymphocytes # (A) 1.3 k/uL (1.0-4.8); Lymphocytes % (A) 12 %; MCH 32.1 pg (25.0-35.0); MCHC 32.6 g/dL (31.0-37.0); MCV 98.7 fL (80.0-100.0); Mean Platelet Volume 7.3; Monocytes # (A) 1.2 k/uL (0-1.0); Monocytes % (A) 11 %; Neutrophils % (A) 74 %; Platelet Count 139 k/uL (150-450); RBC 3.77 m/uL (4.30-5.90); RDW 13.4 % (11.5-15.5); WBC 10.9 k/uL (3.8-10.6)
[2018-05-17 05:07] LABS: INR 1.1 (<1.2); Prothrombin Time 11.2 sec (9.0-12.0)
[2018-05-17] MEDS: METOPROLOL TARTRATE 50 MG TAB PO SCH ×2 (08:11→20:19)
[2018-05-17] MEDS: CLOPIDOGREL 75 MG TAB PO SCH (08:11)
[2018-05-17] MEDS: ASPIRIN 325 MG TAB PO SCH (08:11)
[2018-05-17] MEDS: ATORVASTATIN 80 MG TAB PO SCH (08:11)
--- NOTE | 2018-05-18 00:17 | P.PN ---
Subjective Progress Note Date: 05/16/18 Principal diagnosis: Acute ST elevated [place] and ventricular tachycardia Patient is a 88-year-old male with a known history of coronary artery disease and multiple stent placement, severe calcific occlusive disease, history of CVA/ TIA, dementia and hyperlipidemia initially presented to [facility] with complaints of chest discomfort. Patient woke up in the morning and had braek fast, suddenly developed sharp pains in the left arm and radiating to the retrosternal chest. Associated with some nausea. No diaphoresis. No headache or dizziness. Patient called EMS and was initially taken to [facility] where he was found to be in atrial fibrillation and was resuscitated. Patient was started on nitro drip. He Patient was transferred to [facility] for further evaluation. Patient was found have ST elevation in the lateral leads. Cardiology was consulted and patient was immediately taken to cardiac catheterization . Cardiac catheterization showed severe calcific right and left coronary system. Severe triple-vessel coronary artery disease. Recommended medical management with the dual antiplatelet therapy. Currently patient was transferred to MICU. 05/16/2018 Patient denied any complaints of chest pain today. Able to sit in the chair. Otherwise cardiology recommends aggressive medical management and stent could not be placed due to complicated coronary anatomy. Continued on telemetry monitoring. Continue to monitor the patient and the MICU for one more day. All other review of systems negative except about Current medications reviewed Objective - Vital Signs Vital signs: Vital Signs Temp 98.9 F 05/16/18 20:00 Pulse 76 05/16/18 21:00 Resp 14 05/16/18 21:00 BP 126/87 05/16/18 21:00 Pulse Ox 93 L 05/16/18 21:00 Intake & Output 05/16/18 05/16/18 05/17/18 06:59 18:59 06:59 Intake Total 728.471 667.551 40 Output Total 565 910 50 Balance 163.471 -242.449 -10 Weight 83.3 kg 83.3 kg Intake: IV 613 249 40 Heparin Sod,Pork in 0.45% 63 9 NaCl 25,000 unit In 0.45 % NaCl 1 250ml.bag @ 12 UNITS/KG/HR 9.25 mls/hr IV .Q24H [facility] Rx#: [id number] Sodium Chloride 0.9% 1, 400 000 ml @ 100 mls/hr IV . Q10H [facility] Rx#:[id number] Sodium Chloride carrier 150 240 40 Intake, IV Titration 115.471 318.551 Amount Amiodarone 450 mg In 225.743 Dextrose 5% in Water 250 ml @ 1 MG/MIN 33.33 mls/ hr IV .Q7H31M [facility] Rx#: [id number] Heparin Sod,Pork in 0.45% 115.471 92.808 NaCl 25,000 unit In 0.45 % NaCl 1 250ml.bag @ 12 UNITS/KG/HR 9.25 mls/hr IV .Q24H [facility] Rx#: [id number] Oral 100 Output: Urine 565 910 50 Other: Voiding Method Indwelling Catheter Urinal ABP, PAP, CO, CI - Last Documented Arterial Blood Pressure 111/62 - Exam PHYSICAL EXAMINATION: Patient is lying in the bed comfortably, no acute distress, awake alert and oriented.. HEENT: Normocephalic. Neck is supple. Pupils reactive. Nostrils clear. Oral cavity is moist. Ears reveal no drainage. Neck reveals no JVD, carotid bruits, or thyromegaly. CHEST EXAMINATION: Trachea is central. Symmetrical expansion. Lung casarez clear to auscultation and percussion. CARDIAC: Normal S1, S2 with no gallops. No murmurs ABDOMEN: Soft. Bowel sounds normal. No organomegaly. No abdominal bruits. Extremities: reveal no edema. No clubbing or cyanosis Neurologically awake, alert, oriented x3 with well-coordinated movements. No focal deficits noted Skin: No rash or skin lesions. Psychiatric: Coperative. Nonsuicidal Musculoskeletal: No joint swelling or deformity. Normal range of motion. - Labs CBC & Chem 7: 05/17/18 04:40 05/16/18 04:53 Labs: Abnormal Lab Results - Last 24 Hours (Table) 05/15/18 05/16/18 05/16/18 Range/Units 23:23 04:53 04:53 WBC 11.7 H (3.8-10.6) k/uL RBC 3.85 L (4.30-5.90) m/uL Hgb 12.4 L (13.0-17.5) gm/dL Hct 37.7 L (39.0-53.0) % Neutrophils # 9.7 H (1.3-7.7) k/uL Lymphocytes # 0.7 L (1.0-4.8) k/uL APTT 32.0 H (22.0-30.0) sec Chloride (98-107) mmol/L BUN (9-20) mg/dL Glucose (74-99) mg/dL Total Creatine Kinase 826 H (55-170) U/L CK-MB (CK-2) 121.0 H (0.0-2.4) ng/mL Troponin I 11.200 H* (0.000-0.034) ng/mL 05/16/18 05/16/18 05/16/18 Range/Units 04:53 07:10 17:13 WBC (3.8-10.6) k/uL RBC (4.30-5.90) m/uL Hgb (13.0-17.5) gm/dL Hct (39.0-53.0) % Neutrophils # (1.3-7.7) k/uL Lymphocytes # (1.0-4.8) k/uL APTT 33.8 H 73.4 H (22.0-30.0) sec Chloride 108 H (98-107) mmol/L BUN 23 H (9-20) mg/dL Glucose 123 H (74-99) mg/dL Total Creatine Kinase (55-170) U/L CK-MB (CK-2) (0.0-2.4) ng/mL Troponin I (0.000-0.034) ng/mL Assessment and Plan Assessment: Acute ST elevated inferior wall [place] status post cardiac catheterization. Stent could not be placed due to complicated coronary anatomy. Severe calcific coronary system and triple-vessel disease. Medical management the dual antiplatelet therapy recommended Chest pain/angina Ventricular tachycardia Coronary artery disease with history of multiple stent placement History of CVA/TIA dementia Hearing disorder/deafness Hyperlipidemia Osteoarthritis Degenerative joint disease BPH Plan: Patient denied any complaints of chest pain or shortness of breath today. Heparin and nitro drip were discontinued.. Otherwise patient is status post cardiac catheterization and medical management was recommended as per cardiology. Continue with telemetry monitoring currently with aspirin Plavix and statins and beta blockers. Follow up closely and further recommendations based on the clinical course. Prognosis is guarded with multiple medical problems and comorbid conditions. Time with Patient: Greater than 30
--- NOTE | 2018-05-18 00:19 | P.PN ---
Subjective Progress Note Date: 05/17/18 Principal diagnosis: Acute ST elevated [place] and ventricular tachycardia Patient is a 88-year-old male with a known history of coronary artery disease and multiple stent placement, severe calcific occlusive disease, history of CVA/ TIA, dementia and hyperlipidemia initially presented to [facility] with complaints of chest discomfort. Patient woke up in the morning and had braek fast, suddenly developed sharp pains in the left arm and radiating to the retrosternal chest. Associated with some nausea. No diaphoresis. No headache or dizziness. Patient called EMS and was initially taken to [facility] where he was found to be in atrial fibrillation and was resuscitated. Patient was started on nitro drip. He Patient was transferred to [facility] for further evaluation. Patient was found have ST elevation in the lateral leads. Cardiology was consulted and patient was immediately taken to cardiac catheterization . Cardiac catheterization showed severe calcific right and left coronary system. Severe triple-vessel coronary artery disease. Recommended medical management with the dual antiplatelet therapy. Currently patient was transferred to MICU. 05/16/2018 Patient denied any complaints of chest pain today. Able to sit in the chair. Otherwise cardiology recommends aggressive medical management and stent could not be placed due to complicated coronary anatomy. Continued on telemetry monitoring. Continue to monitor the patient and the MICU for one more day. 05/17/2018 Patient denied any complaints of chest pain or shortness of breath today. Patient is being transferred to medical floor. No acute overnight issues. No fever no chills. No abdominal pain nausea vomiting. No headache or dizziness or lightheadedness. Patient is able to sit in the chair comfortably. All other review of systems negative except about Current medications reviewed Active Medications Generic Name Dose Route Start Last Admin Trade Name Freq PRN Reason Stop Dose Admin Acetaminophen 650 mg 05/16/18 03:42 05/16/18 04:03 Tylenol Tab PO 650 mg Q6HR PRN Administration Fever and/ or Pain Al Hydroxide/Mg Hydroxide 30 ml 05/15/18 15:33 Maalox PO Q4HR PRN Heartburn Aspirin 325 mg 05/16/18 09:00 05/17/18 08:11 Aspirin PO 325 mg DAILY [facility] Administration Atorvastatin Calcium 80 mg 05/16/18 09:00 05/17/18 08:11 Lipitor PO 80 mg DAILY [facility] Administration Atropine Sulfate 0.5 mg 05/15/18 15:33 Atropine IV ONCE PRN Symptomatic Bradycardia Clopidogrel Bisulfate 75 mg 05/16/18 12:00 05/17/18 08:11 Plavix PO 75 mg DAILY [facility] Administration Heparin Sodium/Sodium Chloride 250 mls @ 9.25 mls/hr 05/15/18 12:12 05/17/18 19:00 25,000 unit/ Sodium Chloride IV 0 units/kg/hr .Q24H [facility] 0 mls/hr Titration Protocol 12 UNITS/KG/HR Metoprolol Tartrate 50 mg 05/16/18 21:00 05/17/18 20:19 Lopressor PO 50 mg BID [facility] Administration Miscellaneous Information 1 each 05/16/18 07:01 Magnesium Per Protocol MISCELLANE DAILY PRN Per Protocol Protocol Nitroglycerin 0.4 mg 05/15/18 15:33 Nitrostat SUBLINGUAL Q5M PRN Chest Pain Ondansetron HCl 4 mg 05/16/18 03:42 05/16/18 04:03 Zofran IVP 4 mg Q6HR PRN Administration Nausea And Vomiting Zolpidem Tartrate 5 mg 05/15/18 15:33 Ambien PO HS PRN Insomnia Objective - Vital Signs Vital signs: Vital Signs Temp 99 F 05/17/18 20:00 Pulse 89 05/17/18 20:30 Resp 14 05/17/18 20:30 BP 133/28 05/17/18 20:30 Pulse Ox 97 05/17/18 20:00 Intake & Output 05/17/18 05/17/18 05/18/18 06:59 18:59 06:59 Intake Total 997.561 7273 226.576 Output Total 1050 100 200 Balance -962.476 5887 26.576 Weight 82.5 kg Intake: IV 240 120 Sodium Chloride carrier 240 120 Intake, IV Titration 143.922 226.576 Amount Heparin Sod,Pork in 0.45% 143.922 226.576 NaCl 25,000 unit In 0.45 % NaCl 1 250ml.bag @ 12 UNITS/KG/HR 9.25 mls/hr IV .Q24H [facility] Rx#: [id number] Oral 1015 Output: Urine 1050 100 200 Other: Voiding Method Urinal Urinal Urinal # Voids 0 ABP, PAP, CO, CI - Last Documented Arterial Blood Pressure 111/62 - Exam PHYSICAL EXAMINATION: Patient is lying in the bed comfortably, no acute distress, awake alert and oriented.. HEENT: Normocephalic. Neck is supple. Pupils reactive. Nostrils clear. Oral cavity is moist. Ears reveal no drainage. Neck reveals no JVD, carotid bruits, or thyromegaly. CHEST EXAMINATION: Trachea is central. Symmetrical expansion. Lung casarez clear to auscultation and percussion. CARDIAC: Normal S1, S2 with no gallops. No murmurs ABDOMEN: Soft. Bowel sounds normal. No organomegaly. No abdominal bruits. Extremities: reveal no edema. No clubbing or cyanosis Neurologically awake, alert, oriented x3 with well-coordinated movements. No focal deficits noted Skin: No rash or skin lesions. Psychiatric: Coperative. Nonsuicidal Musculoskeletal: No joint swelling or deformity. Normal range of motion. - Labs CBC & Chem 7: 05/17/18 04:40 05/16/18 04:53 Labs: Abnormal Lab Results - Last 24 Hours (Table) 05/17/18 Range/Units 04:40 WBC 10.9 H (3.8-10.6) k/uL RBC 3.77 L (4.30-5.90) m/uL Hgb 12.1 L (13.0-17.5) gm/dL Hct 37.1 L (39.0-53.0) % Plt Count 139 L (150-450) k/uL Neutrophils # 8.0 H (1.3-7.7) k/uL Monocytes # 1.2 H (0-1.0) k/uL Assessment and Plan Assessment: Acute ST elevated inferior wall PA status post cardiac catheterization. Stent could not be placed due to complicated coronary anatomy. Severe calcific coronary system and triple-vessel disease. Medical management the dual antiplatelet therapy recommended Chest pain/angina Ventricular tachycardia Coronary artery disease with history of multiple stent placement History of CVA/TIA dementia Hearing disorder/deafness Hyperlipidemia Osteoarthritis Degenerative joint disease BPH Plan: Patient denied any complaints of chest pain or shortness of breath today. On heparin drip. nitro drip were discontinued.. Otherwise patient is status post cardiac catheterization and medical management was recommended as per cardiology. Continue with telemetry monitoring currently with aspirin Plavix and statins and beta blockers. Follow up closely and further recommendations based on the clinical course. Prognosis is guarded with multiple medical problems and comorbid conditions.
[2018-05-18 04:41] LABS: Basophils % (A) 0 %; Eosinophils # (A) 0.2 k/uL (0-0.7); Eosinophils % (A) 2 %; HCT 36.7 % (39.0-53.0); HGB 12.1 gm/dL (13.0-17.5); Lymphocytes # (A) 1.2 k/uL (1.0-4.8); Lymphocytes % (A) 13 %; MCH 32.4 pg (25.0-35.0); MCHC 33.1 g/dL (31.0-37.0); Mean Platelet Volume 7.5; Monocytes # (A) 0.8 k/uL (0-1.0); Monocytes % (A) 9 %; Neutrophils # (A) 6.6 k/uL (1.3-7.7); Neutrophils % (A) 74 %; Platelet Count 137 k/uL (150-450); RBC 3.75 m/uL (4.30-5.90); RDW 13.4 % (11.5-15.5)
[2018-05-18 04:59] LABS: Prothrombin Time 10.9 sec (9.0-12.0)
[2018-05-18] MEDS: ASPIRIN 325 MG TAB PO SCH (08:07)
[2018-05-18] MEDS: ATORVASTATIN 80 MG TAB PO SCH (08:07)
[2018-05-18] MEDS: CLOPIDOGREL 75 MG TAB PO SCH (08:07)
[2018-05-18] MEDS: METOPROLOL TARTRATE 50 MG TAB PO SCH ×2 (08:08→20:25)
--- NOTE | 2018-05-18 16:12 | P.PN ---
Subjective Impression is resting comfortably in bed. His blood pressure is ranging from 89 -136 systolic Afebrile Pulse rate in the 60s Heart sounds S1 and S2 are soft no murmurs no gallops no rub Breath sounds are clear Extremities warm Impression ST elevation [place], acute Cardiac arrest during ST elevation [place] Status post PTCA not stenting Severe coronary artery disease Suggest Continue aspirin Plavix atorvastatin and metoprolol continue metoprolol at 50 g twice daily Objective - Vital Signs Vital signs: Vital Signs Temp 98.2 F 05/18/18 12:00 Pulse 68 05/18/18 12:00 Resp 15 05/18/18 12:00 BP 89/57 05/18/18 12:00 Pulse Ox 95 05/18/18 12:00 Intake & Output 05/17/18 05/18/18 05/18/18 18:59 06:59 18:59 Intake Total 1135 226.576 Output Total 100 450 675 Balance 1035 -223.424 -675 Weight 81.6 kg Intake: IV 120 Sodium Chloride carrier 120 Intake, IV Titration 226.576 Amount Heparin Sod,Pork in 0.45% 226.576 NaCl 25,000 unit In 0.45 % NaCl 1 250ml.bag @ 12 UNITS/KG/HR 9.25 mls/hr IV .Q24H [facility] Rx#: [id number] Oral 1015 Output: Urine 100 450 675 Other: Voiding Method Urinal Urinal Urinal # Voids 0 ABP, PAP, CO, CI - Last Documented Arterial Blood Pressure 111/62 - Labs CBC & Chem 7: 05/18/18 04:26 05/16/18 04:53 Labs: Abnormal Lab Results - Last 24 Hours (Table) 05/18/18 Range/Units 04:26 RBC 3.75 L (4.30-5.90) m/uL Hgb 12.1 L (13.0-17.5) gm/dL Hct 36.7 L (39.0-53.0) % Plt Count 137 L (150-450) k/uL
--- NOTE | 2018-05-19 | P.PN ---
Subjective Progress Note Date: 05/18/18 Principal diagnosis: Acute ST elevated [place] and ventricular tachycardia Patient is a 88-year-old male with a known history of coronary artery disease and multiple stent placement, severe calcific occlusive disease, history of CVA/ TIA, dementia and hyperlipidemia initially presented to [facility] with complaints of chest discomfort. Patient woke up in the morning and had braek fast, suddenly developed sharp pains in the left arm and radiating to the retrosternal chest. Associated with some nausea. No diaphoresis. No headache or dizziness. Patient called EMS and was initially taken to [facility] where he was found to be in atrial fibrillation and was resuscitated. Patient was started on nitro drip. He Patient was transferred to [facility] for further evaluation. Patient was found have ST elevation in the lateral leads. Cardiology was consulted and patient was immediately taken to cardiac catheterization . Cardiac catheterization showed severe calcific right and left coronary system. Severe triple-vessel coronary artery disease. Recommended medical management with the dual antiplatelet therapy. Currently patient was transferred to MICU. 05/16/2018 Patient denied any complaints of chest pain today. Able to sit in the chair. Otherwise cardiology recommends aggressive medical management and stent could not be placed due to complicated coronary anatomy. Continued on telemetry monitoring. Continue to monitor the patient and the MICU for one more day. 05/17/2018 Patient denied any complaints of chest pain or shortness of breath today. Patient is being transferred to medical floor. No acute overnight issues. No fever no chills. No abdominal pain nausea vomiting. No headache or dizziness or lightheadedness. Patient is able to sit in the chair comfortably. 05/18/2018 Patient denied any complains of chest pain or shortness of breath today. Patient did have some dizziness in the morning when he was getting out of the bed. Otherwise blood pressure is on the lower side. Patient is being continued on metoprolol 50 mg twice a day. Continue to monitor for another 24 hours. Cardiology is on board. All other review of systems negative except above Current medications reviewed Active Medications Generic Name Dose Route Start Last Admin Trade Name Freq PRN Reason Stop Dose Admin Acetaminophen 650 mg 05/16/18 03:42 05/16/18 04:03 Tylenol Tab PO 650 mg Q6HR PRN Administration Fever and/ or Pain Al Hydroxide/Mg Hydroxide 30 ml 05/15/18 15:33 Maalox PO Q4HR PRN Heartburn Aspirin 325 mg 05/16/18 09:00 05/17/18 08:11 Aspirin PO 325 mg DAILY [facility] Administration Atorvastatin Calcium 80 mg 05/16/18 09:00 05/17/18 08:11 Lipitor PO 80 mg DAILY [facility] Administration Atropine Sulfate 0.5 mg 05/15/18 15:33 Atropine IV ONCE PRN Symptomatic Bradycardia Clopidogrel Bisulfate 75 mg 05/16/18 12:00 05/17/18 08:11 Plavix PO 75 mg DAILY [facility] Administration Heparin Sodium/Sodium Chloride 250 mls @ 9.25 mls/hr 05/15/18 12:12 05/17/18 19:00 25,000 unit/ Sodium Chloride IV 0 units/kg/hr .Q24H [facility] 0 mls/hr Titration Protocol 12 UNITS/KG/HR Metoprolol Tartrate 50 mg 05/16/18 21:00 05/17/18 20:19 Lopressor PO 50 mg BID [facility] Administration Miscellaneous Information 1 each 05/16/18 07:01 Magnesium Per Protocol MISCELLANE DAILY PRN Per Protocol Protocol Nitroglycerin 0.4 mg 05/15/18 15:33 Nitrostat SUBLINGUAL Q5M PRN Chest Pain Ondansetron HCl 4 mg 05/16/18 03:42 05/16/18 04:03 Zofran IVP 4 mg Q6HR PRN Administration Nausea And Vomiting Zolpidem Tartrate 5 mg 05/15/18 15:33 Ambien PO HS PRN Insomnia Objective - Vital Signs Vital signs: Vital Signs Temp 98.5 F 05/18/18 16:00 Pulse 74 05/18/18 16:00 Resp 16 05/18/18 16:00 BP 109/71 05/18/18 18:00 Pulse Ox 95 05/18/18 16:00 Intake & Output 05/18/18 05/18/18 05/19/18 06:59 18:59 06:59 Intake Total 226.576 Output Total 450 775 Balance -223.424 -775 Weight 81.6 kg Intake: Intake, IV Titration 226.576 Amount Heparin Sod,Pork in 0.45% 226.576 NaCl 25,000 unit In 0.45 % NaCl 1 250ml.bag @ 12 UNITS/KG/HR 9.25 mls/hr IV .Q24H [facility] Rx#: [id number] Output: Urine 450 775 Other: Voiding Method Urinal Urinal ABP, PAP, CO, CI - Last Documented Arterial Blood Pressure 111/62 - Exam PHYSICAL EXAMINATION: Patient is lying in the bed comfortably, no acute distress, awake alert and oriented.. HEENT: Normocephalic. Neck is supple. Pupils reactive. Nostrils clear. Oral cavity is moist. Ears reveal no drainage. Neck reveals no JVD, carotid bruits, or thyromegaly. CHEST EXAMINATION: Trachea is central. Symmetrical expansion. Lung casarez clear to auscultation and percussion. CARDIAC: Normal S1, S2 with no gallops. No murmurs ABDOMEN: Soft. Bowel sounds normal. No organomegaly. No abdominal bruits. Extremities: reveal no edema. No clubbing or cyanosis Neurologically awake, alert, oriented x3 with well-coordinated movements. No focal deficits noted Skin: No rash or skin lesions. Psychiatric: Coperative. Nonsuicidal Musculoskeletal: No joint swelling or deformity. Normal range of motion. - Labs CBC & Chem 7: 05/18/18 04:26 05/16/18 04:53 Labs: Abnormal Lab Results - Last 24 Hours (Table) 05/18/18 Range/Units 04:26 RBC 3.75 L (4.30-5.90) m/uL Hgb 12.1 L (13.0-17.5) gm/dL Hct 36.7 L (39.0-53.0) % Plt Count 137 L (150-450) k/uL Assessment and Plan Assessment: Acute ST elevated inferior wall [place] status post cardiac catheterization. Stent could not be placed due to complicated coronary anatomy. Severe calcific coronary system and triple-vessel disease. Medical management the dual antiplatelet therapy recommended Chest pain/angina Ventricular tachycardia Coronary artery disease with history of multiple stent placement History of CVA/TIA dementia Hearing disorder/deafness Hyperlipidemia Osteoarthritis Degenerative joint disease BPH Plan: Patient denied any complaints of chest pain or shortness of breath today. On heparin drip. nitro drip were discontinued.. Otherwise patient is status post cardiac catheterization and medical management was recommended as per cardiology. Continue with telemetry monitoring currently with aspirin Plavix and statins and beta blockers. Follow up closely and further recommendations based on the clinical course. Prognosis is guarded with multiple medical problems and comorbid conditions. Time with Patient: Greater than 30
[2018-05-19 05:38] LABS: Basophils % (A) 0 %; Eosinophils # (A) 0.2 k/uL (0-0.7); Eosinophils % (A) 2 %; HCT 39.9 % (39.0-53.0); HGB 12.7 gm/dL (13.0-17.5); Lymphocytes # (A) 1.2 k/uL (1.0-4.8); Lymphocytes % (A) 13 %; MCH 31.2 pg (25.0-35.0); MCHC 31.8 g/dL (31.0-37.0); MCV 98.3 fL (80.0-100.0); Mean Platelet Volume 7.1; Monocytes % (A) 11 %; Neutrophils # (A) 6.5 k/uL (1.3-7.7); Neutrophils % (A) 71 %; Platelet Count 183 k/uL (150-450); RBC 4.06 m/uL (4.30-5.90); RDW 13.2 % (11.5-15.5); WBC 9.1 k/uL (3.8-10.6)
[2018-05-19 05:50] LABS: Prothrombin Time 10.9 sec (9.0-12.0)
[2018-05-19] MEDS: METOPROLOL TARTRATE 50 MG TAB PO SCH (08:55)
[2018-05-19] MEDS: ATORVASTATIN 80 MG TAB PO SCH (08:55)
[2018-05-19] MEDS: CLOPIDOGREL 75 MG TAB PO SCH (08:55)
[2018-05-19 08:58] VITALS: BP 120/74; PULSE 75; RESP 18; TEMP 98.1
[2018-05-19] MEDS ORDERED: ASPIRIN 81 MG PO SCH (09:00)
--- NOTE | 2018-05-19 10:41 | P.PN ---
Subjective Patient is doing well. He is resting comfortably in a chair. His blood pressures improved and was 120 systolic this morning No chest discomfort dizziness lightheadedness and no ventricular arrhythmias. 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 He understands that his risks of recurrent NH and VF arrest at high Unfortunately there are no good/lasting/durable solutions to this problem. This was discussed with him and his family members Maximal medical treatment Follow-up with Dr. Harry this week as an outpatient Objective - Vital Signs Vital signs: Vital Signs Temp 98.1 F 05/19/18 08:00 Pulse 75 05/19/18 08:00 Resp 18 05/19/18 08:00 BP 120/74 05/19/18 08:00 Pulse Ox 96 05/19/18 08:00 Intake & Output 05/18/18 05/19/18 05/19/18 18:59 06:59 18:59 Output Total 775 475 Balance -775 -475 Weight 81.6 kg Output: Urine 775 475 Other: Voiding Method Urinal Urinal Urinal # Voids 0 # Bowel Movements 1 ABP, PAP, CO, CI - Last Documented Arterial Blood Pressure 111/62 - Labs CBC & Chem 7: 05/19/18 05:06 05/16/18 04:53 Labs: Abnormal Lab Results - Last 24 Hours (Table) 05/19/18 Range/Units 05:06 RBC 4.06 L (4.30-5.90) m/uL Hgb 12.7 L (13.0-17.5) gm/dL
== END 2018-05-19 12:54 | disposition home or self-care (01) | DRG 251 ==
LOC: EC 11:49 → 2SICU 12:51
PROVIDERS: ADMIT Hospitalist; ATTEND Hospitalist
PROC: B2111ZZ Fluoroscopy of Multiple Coronary Arteries using Low Osmolar Contrast (ICD-10-PCS; principal; 2018-05-15 12:43)
PROC: 4A023N7 Measurement of Cardiac Sampling and Pressure, Left Heart, Percutaneous Approach (ICD-10-PCS; principal; 2018-05-15 12:43)
PROC: 02703ZZ Dilation of Coronary Artery, One Artery, Percutaneous Approach (ICD-10-PCS; principal; 2018-05-15 12:43)
DX: I21.19 ST elevation (STEMI) myocardial infarction involving other coronary artery of inferior wall (principal); I47.2 Ventricular tachycardia; I25.10 Atherosclerotic heart disease of native coronary artery without angina pectoris; E78.5 Hyperlipidemia, unspecified; F03.90 Unspecified dementia, unspecified severity, without behavioral disturbance, psychotic disturbance, mood disturbance, and anxiety; G47.00 Insomnia, unspecified; H40.9 Unspecified glaucoma; H91.90 Unspecified hearing loss, unspecified ear; I10 Essential (primary) hypertension; M19.90 Unspecified osteoarthritis, unspecified site; N40.0 Benign prostatic hyperplasia without lower urinary tract symptoms; Z79.02 Long term (current) use of antithrombotics/antiplatelets; Z79.1 Long term (current) use of non-steroidal anti-inflammatories (NSAID); Z79.82 Long term (current) use of aspirin; Z79.899 Other long term (current) drug therapy; Z80.0 Family history of malignant neoplasm of digestive organs; Z80.8 Family history of malignant neoplasm of other organs or systems; Z82.49 Family history of ischemic heart disease and other diseases of the circulatory system; Z86.73 Personal history of transient ischemic attack (TIA), and cerebral infarction without residual deficits
CPT/HCPCS: 36415; 80048; 80053; 80061; 82550; 82553; 83735; 83880; 84100; 84484; 85025; 85610; 85730; 92920; 93005; 93454; 96365; 96375; 99291

== ENCOUNTER 2021-09-14 02:47 | Inpatient (IN) | payer BC, MEDICARE ==
--- NOTE | 2021-09-14 02:57 | ED ---
General Adult HPI - General Stated complaint: Chest Pain Time Seen by Provider: 09/14/21 02:56 - History of Present Illness Initial comments: Rohan is an 89-year-old gentleman who presents the ER today via ambulance from [facility] where he is currently at rehab. Patient apparently had a cardiac event and was cathed and had a pacemaker placed on August 23, this happened at an outside hospital. He was discharged from [facility] for rehab. Apparently during his previous admission he had aspiration pneumonia and he has since been on an electric thick diet. Patient is on 2 L nasal cannula at baseline due to his previous pneumonia. Apparently tonight when he checked on him in bed he was dean diaphoretic with an oxygen saturation in the 70s. He is placed on a nonrebreather 911 was called, the time of their arrival patient was appearing much better option saturations had improved he was no longer diaphoretic. Patient denies any chest pain. - Related Data Home Medications Medication Instructions Recorded Confirmed RX: Aspirin 81 mg PO DAILY 09/18/13 05/15/18 RX: Sennosides [Senna] 8.6 mg PO DAILY 05/16/18 05/16/18 Previous Rx's Medication Instructions Recorded RX: Atorvastatin [Lipitor] 80 mg PO DAILY #30 tab 05/18/18 RX: Clopidogrel [Plavix] 75 mg PO DAILY #30 tab 05/18/18 RX: Metoprolol Tartrate [Lopressor] 50 mg PO BID #60 tab 05/18/18 RX: Nitroglycerin Sl Tabs 1 tab SUBLINGUAL Q5M PRN #50 tab 05/19/18 [Nitrostat] Allergies Allergy/AdvReac Type Severity Reaction Status Date / Time No Known Allergies Allergy Verified 05/15/18 13:21 Review of Systems ROS Statement: Those systems with pertinent positive or pertinent negative responses have been documented in the HPI. ROS Other: All systems not noted in ROS Statement are negative. Past Medical History Past Medical History: Chest Pain / Angina, CVA/TIA, Dementia, Eye Disorder, Hearing Disorder / Deafness, Hyperlipidemia, Osteoarthritis (OA), Prostate Di sorder Additional Past Medical History / Comment(s): GLAUCOMA. Hepatitis (surgical per pt) History of Any Multi-Drug Resistant Organisms: None Reported Past Surgical History: Heart Catheterization, Hernia Repair, Joint Replacement, Orthopedic Surgery Past Anesthesia/Blood Transfusion Reactions: No Reported Reaction Past Psychological History: No Psychological Hx Reported Past Alcohol Use History: None Reported Past Drug Use History: None Reported - Past Family History Mother Family Medical History: CVA/TIA Father Family Medical History: Cancer Additional Family Medical History / Comment(s): brain ca Brother(s) Family Medical History: Cancer, Coronary Artery Disease (CAD) Additional Family Medical History / Comment(s): 1 brother CAD & the other bro ther liver ca General Exam - General Exam Comments Initial Comments: Physical Exam GENERAL: Chronically ill elderly man HENT: Normocephalic, Atraumatic. EYES: PERRL, EOMI PULMONARY: Crackles throughout CARDIOVASCULAR: RRR Pacemaker in Left upper chest - swelling around pacemaker without skin changes concerning for possible hematoma ABDOMEN: Soft and nontender with normal bowel sounds. SKIN: Healing bruising in left upper chest and axilla consistent with recent pacemaker placement : Deferred NEUROLOGIC: Patient is alert and oriented x3. Moving all extremities spontaneously MUSCULOSKELETAL: Normal extremities with adequate strength and full range of motion. No lower extremity swelling or edema. No calf tenderness. PSYCHIATRIC: Normal psychiatric evaluation. Course Vital Signs 09/14/21 09/14/21 09/14/21 02:59 03:15 05:00 Temperature 97.7 F Pulse Rate 101 H 100 Respiratory 22 22 26 H Rate Blood Pressure 137/90 O2 Sat by Pulse 98 95 Oximetry 09/14/21 09/14/21 09/14/21 05:08 06:07 07:00 Temperature Pulse Rate 100 99 101 H Respiratory 20 20 20 Rate Blood Pressure 125/95 127/96 108/86 O2 Sat by Pulse 95 95 96 Oximetry EKG Findings - EKG Comments: EKG Findings:: EKG was obtained due to tachycardia and hypoxia, EKG was obtained at 2:53 AM, rate is 111 rhythm is sinus tachycardia, TN is prolonged at 231, QRS 125, QTC prolonged at 461, no acute ST elevations or depressions no evidence of ischemia or infarction. Medical Decision Making - Medical Decision Making Patient was seen and evaluated, history was obtained from the patient and EMS Patient was apparently hypoxic pale diaphoretic at his custodial, uncertain how long he has been in the eye condition, hypoxia improved with supplemental oxygen he never had any chest pain is brought to the ER for evaluation Upon evaluation he reports he is feeling much better, patient is afebrile maintaining on 2L nasal cannula oxygen Labs did result with an elevated troponin I suspect this is secondary to hypoxic event we will trend this Repeat troponin was again elevated patient has remained chest pain-free without any arrhythmias or ischemic changes noted Pt care was discussed with Dr. Aguilar who agrees this elevated troponin is likely related to hypoxic event and demand ischemia rather than an acute coronary syndrome, recommends continuing intake lately and anticoagulant medications no need for heparin at this time Care was discussed with Dr Thornton who accepts the admission - Lab Data Result diagrams: 09/14/21 03:30 09/14/21 03:30 Lab Results 09/14/21 09/14/21 09/14/21 Range/Units 03:30 03:30 03:30 WBC 9.6 (3.8-10.6) k/uL RBC 3.52 L (4.30-5.90) m/uL Hgb 11.4 L (13.0-17.5) gm/dL Hct 36.5 L (39.0-53.0) % MCV 103.8 H (80.0-100.0) fL MCH 32.4 (25.0-35.0) pg MCHC 31.2 (31.0-37.0) g/dL RDW 13.2 (11.5-15.5) % Plt Count 322 (150-450) k/uL MPV 7.9 Neutrophils % 80 % Lymphocytes % 10 % Monocytes % 7 % Eosinophils % 2 % Basophils % 0 % Neutrophils # 7.6 (1.3-7.7) k/uL Lymphocytes # 1.0 (1.0-4.8) k/uL Monocytes # 0.6 (0-1.0) k/uL Eosinophils # 0.2 (0-0.7) k/uL Basophils # 0.0 (0-0.2) k/uL Hypochromasia Slight Macrocytosis Slight PT 13.3 H (9.0-12.0) sec INR 1.3 H (<1.2) APTT 24.2 (22.0-30.0) sec Sodium 135 L (137-145) mmol/L Potassium 4.4 (3.5-5.1) mmol/L Chloride 103 (98-107) mmol/L Carbon Dioxide 28 (22-30) mmol/L Anion Gap 4 mmol/L BUN 23 H (9-20) mg/dL Creatinine 0.76 (0.66-1.25) mg/dL Est GFR (CKD-EPI)AfAm >90 (>60 ml/min/1.73 sqM) Est GFR (CKD-EPI)NonAf 81 (>60 ml/min/1.73 sqM) Glucose 151 H (74-99) mg/dL Plasma Lactic Acid Torin (0.7-2.0) mmol/L Calcium 8.2 L (8.4-10.2) mg/dL Total Bilirubin 0.8 (0.2-1.3) mg/dL AST 30 (17-59) U/L ALT 20 (4-49) U/L Alkaline Phosphatase 61 (38-126) U/L Troponin I (0.000-0.034) ng/mL Total Protein 6.5 (6.3-8.2) g/dL Albumin 2.8 L (3.5-5.0) g/dL Urine Color Urine Appearance (Clear) Urine pH (5.0-8.0) Ur Specific [place] (1.001-1.035) Urine Protein (Negative) Urine Glucose (UA) (Negative) Urine Ketones (Negative) Urine Blood (Negative) Urine Nitrite (Negative) Urine Bilirubin (Negative) Urine Urobilinogen (<2.0) mg/dL Ur Leukocyte Esterase (Negative) Influenza Type A (PCR) (Not Detectd) Influenza Type B (PCR) (Not Detectd) RSV (PCR) (Not Detectd) SARS-CoV-2 (PCR) (Not Detectd) 09/14/21 09/14/21 09/14/21 Range/Units 03:30 03:30 04:12 WBC (3.8-10.6) k/uL RBC (4.30-5.90) m/uL Hgb (13.0-17.5) gm/dL Hct (39.0-53.0) % MCV (80.0-100.0) fL MCH (25.0-35.0) pg MCHC (31.0-37.0) g/dL RDW (11.5-15.5) % Plt Count (150-450) k/uL MPV Neutrophils % % Lymphocytes % % Monocytes % % Eosinophils % % Basophils % % Neutrophils # (1.3-7.7) k/uL Lymphocytes # (1.0-4.8) k/uL Monocytes # (0-1.0) k/uL Eosinophils # (0-0.7) k/uL Basophils # (0-0.2) k/uL Hypochromasia Macrocytosis PT (9.0-12.0) sec INR (<1.2) APTT (22.0-30.0) sec Sodium (137-145) mmol/L Potassium (3.5-5.1) mmol/L Chloride (98-107) mmol/L Carbon Dioxide (22-30) mmol/L Anion Gap mmol/L BUN (9-20) mg/dL Creatinine (0.66-1.25) mg/dL Est GFR (CKD-EPI)AfAm (>60 ml/min/1.73 sqM) Est GFR (CKD-EPI)NonAf (>60 ml/min/1.73 sqM) Glucose (74-99) mg/dL Plasma Lactic Acid Torin 1.1 (0.7-2.0) mmol/L Calcium (8.4-10.2) mg/dL Total Bilirubin (0.2-1.3) mg/dL AST (17-59) U/L ALT (4-49) U/L Alkaline Phosphatase (38-126) U/L Troponin I 0.259 H* (0.000-0.034) ng/mL Total Protein (6.3-8.2) g/dL Albumin (3.5-5.0) g/dL Urine Color Urine Appearance (Clear) Urine pH (5.0-8.0) Ur Specific [place] (1.001-1.035) Urine Protein (Negative) Urine Glucose (UA) (Negative) Urine Ketones (Negative) Urine Blood (Negative) Urine Nitrite (Negative) Urine Bilirubin (Negative) Urine Urobilinogen (<2.0) mg/dL Ur Leukocyte Esterase (Negative) Influenza Type A (PCR) Not Detected (Not Detectd) Influenza Type B (PCR) Not Detected (Not Detectd) RSV (PCR) Not Detected (Not Detectd) SARS-CoV-2 (PCR) Not Detected (Not Detectd) 09/14/21 09/14/21 Range/Units 05:51 05:51 WBC (3.8-10.6) k/uL RBC (4.30-5.90) m/uL Hgb (13.0-17.5) gm/dL Hct (39.0-53.0) % MCV (80.0-100.0) fL MCH (25.0-35.0) pg MCHC (31.0-37.0) g/dL RDW (11.5-15.5) % Plt Count (150-450) k/uL MPV Neutrophils % % Lymphocytes % % Monocytes % % Eosinophils % % Basophils % % Neutrophils # (1.3-7.7) k/uL Lymphocytes # (1.0-4.8) k/uL Monocytes # (0-1.0) k/uL Eosinophils # (0-0.7) k/uL Basophils # (0-0.2) k/uL Hypochromasia Macrocytosis PT (9.0-12.0) sec INR (<1.2) APTT (22.0-30.0) sec Sodium (137-145) mmol/L Potassium (3.5-5.1) mmol/L Chloride (98-107) mmol/L Carbon Dioxide (22-30) mmol/L Anion Gap mmol/L BUN (9-20) mg/dL Creatinine (0.66-1.25) mg/dL Est GFR (CKD-EPI)AfAm (>60 ml/min/1.73 sqM) Est GFR (CKD-EPI)NonAf (>60 ml/min/1.73 sqM) Glucose (74-99) mg/dL Plasma Lactic Acid [place]in (0.7-2.0) mmol/L Calcium (8.4-10.2) mg/dL Total Bilirubin (0.2-1.3) mg/dL AST (17-59) U/L ALT (4-49) U/L Alkaline Phosphatase (38-126) U/L Troponin I 0.269 H* (0.000-0.034) ng/mL Total Protein (6.3-8.2) g/dL Albumin (3.5-5.0) g/dL Urine Color Yellow Urine Appearance Clear (Clear) Urine pH 6.0 (5.0-8.0) Ur Specific [place] 1.027 (1.001-1.035) Urine Protein Trace H (Negative) Urine Glucose (UA) Negative (Negative) Urine Ketones Negative (Negative) Urine Blood Negative (Negative) Urine Nitrite Negative (Negative) Urine Bilirubin Negative (Negative) Urine Urobilinogen <2.0 (<2.0) mg/dL Ur Leukocyte Esterase Negative (Negative) Influenza Type A (PCR) (Not Detectd) Influenza Type B (PCR) (Not Detectd) RSV (PCR) (Not Detectd) SARS-CoV-2 (PCR) (Not Detectd) Disposition Clinical Impression: Hypoxia, Bilateral pneumonia, Elevated troponin Disposition: ADMITTED IP TO THIS HOSP Condition: Serious Referrals: Lebron Thornton MD [Primary Care Provider] - 1-2 days
[2021-09-14 03:48] LABS: Basophils % (A) 0 %; Eosinophils # (A) 0.2 k/uL (0-0.7); Eosinophils % (A) 2 %; HCT 36.5 % (39.0-53.0); HGB 11.4 gm/dL (13.0-17.5); Hypochromasia Slight; Lymphocytes % (A) 10 %; MCH 32.4 pg (25.0-35.0); MCHC 31.2 g/dL (31.0-37.0); MCV 103.8 fL (80.0-100.0); Macrocytosis Slight; Mean Platelet Volume 7.9; Monocytes # (A) 0.6 k/uL (0-1.0); Monocytes % (A) 7 %; Neutrophils # (A) 7.6 k/uL (1.3-7.7); Neutrophils % (A) 80 %; Platelet Count 322 k/uL (150-450); RBC 3.52 m/uL (4.30-5.90); RDW 13.2 % (11.5-15.5); WBC 9.6 k/uL (3.8-10.6)
[2021-09-14 03:59] LABS: INR 1.3 (<1.2); Partial Thromboplastin Time 24.2 sec (22.0-30.0); Prothrombin Time 13.3 sec (9.0-12.0)
[2021-09-14 04:09] LABS: ALT 20 U/L (4-49); AST 30 U/L (17-59); African American GFR (CKD) >90 (>60 ml/min/1.73 sqM); Albumin 2.8 g/dL (3.5-5.0); Alkaline Phosphatase 61 U/L (38-126); Anion Gap 4 mmol/L; Blood Urea Nitrogen 23 mg/dL (9-20); Calcium 8.2 mg/dL (8.4-10.2); Carbon Dioxide 28 mmol/L (22-30); Chloride 103 mmol/L (98-107); Glucose 151 mg/dL (74-99); Non-African American GFR(CKD) 81 (>60 ml/min/1.73 sqM); Potassium 4.4 mmol/L (3.5-5.1); Sodium 135 mmol/L (137-145); Total Bilirubin 0.8 mg/dL (0.2-1.3); Total Protein 6.5 g/dL (6.3-8.2)
--- NOTE | 2021-09-14 04:31 | XR ---
EXAMINATION TYPE: XR chest 1V portable DATE OF EXAM: 09/14/2021 COMPARISON: None HISTORY: Hypoxemia TECHNIQUE: FINDINGS: There is patchy bilateral pulmonary airspace infiltrates. There is pleural thickening right upper lobe. There is left axillary pacemaker. There is left shoulder prosthesis. There are chest ameena ds. IMPRESSION: Bilateral patchy pneumonia. No definite heart failure.
[2021-09-14] MEDS ORDERED: cefTRIAXone IN SWFI 1,000 MG/10 ML SYRINGE IVP STA (04:47)
[2021-09-14] MEDS ORDERED: AZITHROMYCIN 500 MG in SODIUM CHLORIDE 0.9% 250 ML IVPB ONE (05:00)
[2021-09-14 05:55] LABS: Appearance,Urine Clear (Clear); Bilirubin,Urine Negative (Negative); Blood,Urine Negative (Negative); Color,Urine Yellow; Glucose,Urine (UA) Negative (Negative); Ketones,Urine Negative (Negative); Leukocyte Esterase,Urine Negative (Negative); Nitrite,Urine Negative (Negative); Protein,Urine Trace (Negative); Specific Gravity,Urine 1.027 (1.001-1.035); Urobilinogen,Urine <2.0 mg/dL (<2.0)
[2021-09-14] MEDS ORDERED: HEPARIN SODIUM 1,000 UN/ML (10ML VL) IV PRN (06:33)
[2021-09-14] MEDS ORDERED: HEPARIN SOD,PORK IN 0.45% NACL 25,000 UNIT in 0.45% NACL 1 250ML.BAG IV SCH (06:45)
[2021-09-14] MEDS ORDERED: ASPIRIN 81 MG PO STA (06:59)
[2021-09-14] MEDS ORDERED: NALOXONE 0.4 MG/ML 1 ML VIAL IV PRN (07:03)
[2021-09-14] MEDS ORDERED: ONDANSETRON 4 MG/2 ML VIAL IVP PRN (07:42)
[2021-09-14] MEDS ORDERED: APIXABAN 5 MG TAB PO SCH (09:00)
[2021-09-14] MEDS ORDERED: IPRATROPIUM-ALBUTEROL 3 ML NEB INHALATION PRN (09:24)
[2021-09-14] MEDS: PIPERACILLIN-TAZOBACTAM 3.375 GM in SODIUM CHLORIDE 0.9% 100 ML IVPB SCH ×2 (10:04→18:54)
--- NOTE | 2021-09-14 11:00 | P.CRDCN ---
History of Present Illness Consult date: 09/14/21 History of present illness: HISTORY OF PRESENTING ILLNESS This is a pleasant 89-year-old gentleman with a past medical history significant for coronary artery disease status post angioplasty and chronic total occlusion of the LAD, bradycardia status post permanent pacemaker, persistent atrial fibrillation on Eliquis. He follows in the office with Dr Roque. We have been asked to see in consultation for elevated troponin and known coronary artery disease. patient was a recent STEMI and had a permanent pacemaker placed on August 26, 2021. He was at [facility] for rehab. Apparently patient was found in his room dean, diaphoretic, and oxygen saturation in the 70s. patient was brought into the ER and given supplemental oxygen. He is examined today in the ER sitting in bed resting comfortably A&O 1-2. He denies chest pain or shortness of breath. patient is sinus rhythm. troponins are 0.269 and 0.259 probably related to oxygen supply and demand mismatch. Patient was recently admitted for aspiration pneumonia. chest x-ray shows bilateral patchy pneumonia no definite heart failure. He pacer site has a hematoma and ecchymosis, will order pressure dressing to be applied. Review of Systems REVIEW OF SYSTEMS At the time of my exam: CONSTITUTIONAL: Denies fever or chills. EYES: Negative for vision changes ENT: Negative for hearing loss CARDIOVASCULAR: Denies chest pain, shortness of breath, diaphoresis, orthopnea, PND or palpitations. VASCULAR: Denies edema RESPIRATORY: Denies cough. GASTROINTESTINAL: Denies abdominal pain, diarrhea, constipation, nausea or vomiting. MUSCULOSKELETAL: Denies myalgias. NEUROLOGIC: Denies numbness, tingling, headache or weakness. ENDOCRINE: Denies fatigue, weight change, polydipsia or polyurina. GENITOURINARY: Denies burning, hematuria or urgency with micturation. HEMATOLOGIC: Denies history of anemia or bleeding. DERMATOLOGY: Denies rash or skin sores PSYCH: Negative for depression or hallucinations. Past Medical History Past Medical History: Chest Pain / Angina, CVA/TIA, Dementia, Eye Disorder, Hearing Disorder / Deafness, Hyperlipidemia, Osteoarthritis (OA), Prostate Disorder Additional Past Medical History / Comment(s): GLAUCOMA. Hepatitis (surgical per pt) History of Any Multi-Drug Resistant Organisms: None Reported Past Surgical History: Heart Catheterization, Hernia Repair, Joint Replacement, Orthopedic Surgery Past Anesthesia/Blood Transfusion Reactions: No Reported Reaction Past Psychological History: No Psychological Hx Reported Past Alcohol Use History: None Reported Past Drug Use History: None Reported - Past Family History Mother Family Medical History: CVA/TIA Father Family Medical History: Cancer Additional Family Medical History / Comment(s): brain ca Brother(s) Family Medical History: Cancer, Coronary Artery Disease (CAD) Additional Family Medical History / Comment(s): 1 brother CAD & the other brother liver ca Medications and Allergies Home Medications Medication Instructions Recorded Confirmed Type Aspirin 81 mg PO DAILY@1700 09/18/13 09/14/21 History Nitroglycerin Sl Tabs [Nitrostat] 1 tab SUBLINGUAL Q5M PRN #50 tab 05/19/18 09/14/21 Rx Acetaminophen Tab [Tylenol] 650 mg PO Q6H PRN 09/14/21 09/14/21 History Apixaban [Eliquis] 5 mg PO BID@0800,1700 09/14/21 09/14/21 History Atorvastatin [Lipitor] 40 mg PO HS@2100 09/14/21 09/14/21 History Docusate [Colace] 100 mg PO BID@0800,1700 09/14/21 09/14/21 History Ipratropium-Albuterol Nebulize 3 ml INHALATION RT-Q6H PRN 09/14/21 09/14/21 History [Duoneb 0.5 mg-3 mg/3 ml Soln] Isosorbide Mononitrate ER [Imdur] 30 mg PO DAILY@0809/14/21 09/14/21 History Lactose-Reduced Food [Ensure Plus] 120 ml PO TID@0800,1200,1700 09/14/21 History Levofloxacin [Levaquin] 250 mg PO DAILY@0809/14/21 09/14/21 History Magic Cup 1 can PO TID@0800,1200,1700 09/14/21 09/14/21 History Magnesium Hydroxide [Milk of 2,400 mg PO DAILY PRN 09/14/21 09/14/21 History Magnesia] Melatonin 1 mg PO HS@2200 09/14/21 09/14/21 History Metoprolol Succinate [Toprol XL] 25 mg PO DAILY@0800 09/14/21 09/14/21 History Na Phos,M-B/Na Phos,Di-Ba [Fleet 133 ml RECTAL DAILY PRN 09/14/21 09/14/21 History Adult] Nystatin 100,000 Unit/ml Susp 5 ml PO QID 09/14/21 09/14/21 History [Mycostatin Oral Susp] Polyethylene Glycol 3350 [Miralax] 17 gm PO DAILY@0800 09/14/21 09/14/21 History Ranolazine [Ranolazine ER] 500 mg PO BID@0800,2100 09/14/21 09/14/21 History bisacodyL 10 mg RECTAL DAILY PRN 09/14/21 09/14/21 History Allergies Allergy/AdvReac Type Severity Reaction Status Date / Time No Known Allergies Allergy Verified 09/14/21 09:35 Physical Exam Vitals: Vital Signs Temp Pulse Pulse Resp BP BP Pulse Ox 09/14/21 08:10 97.9 F 95 18 117/75 94 L 09/14/21 07:56 97.9 F 98 20 129/97 94 L 09/14/21 07:00 101 H 20 108/86 96 09/14/21 06:07 99 20 127/96 95 09/14/21 05:08 100 20 125/95 95 09/14/21 05:00 26 H 09/14/21 03:15 100 22 137/90 95 09/14/21 02:59 97.7 F 101 H 22 98 Intake and Output 09/13/21 09/14/21 09/14/21 22:59 06:59 14:59 Other: Weight 85.729 kg General: The patient is awake and alert, in no distress, and does not appear acutely ill. Skin: Skin is warm and dry and no rashes or lesions are noted. Eye: Pupils are equal, round and reactive to light, extra-ocular movements are intact; there is normal conjunctiva bilaterally. Ears, nose, mouth and throat: There are moist mucous membranes and no oral lesions. Neck: The neck is supple, there is no tenderness or JVD. Cardiovascular: There is irregular regular rate and rhythm. No murmur, rub or gallop is appreciated. Respiratory: Lungs are clear to auscultation, respirations are non-labored, breath sounds are equal. Gastrointestinal: Soft, non-distended, non-tender abdomen without masses or organomegaly noted. There is no rebound or guarding present. Bowel sounds are unremarkable. Back: There is no tenderness to palpation in the midline. There is no obvious deformity. Musculoskeletal: Normal ROM, no tenderness, There is no pedal edema. There is no calf tenderness or swelling. Extremities: Mild bilateral pitting edema Vascular: Femoral pulse is normal. Posterior tibial pulses are normal .Dorsalis pedis is palpable. Neurological: CN II-XII intact. There are no obvious motor or sensory deficits. Speech is normal. Psychiatric: Cooperative, appropriate mood & affect, normal judgment. Results 09/14/21 03:30 09/14/21 03:30 Cardiac Enzymes 09/14/21 09/14/21 09/14/21 Range/Units 03:30 03:30 05:51 AST 30 (17-59) U/L Troponin I 0.259 H* 0.269 H* (0.000-0.034) ng/mL Coagulation 09/14/21 Range/Units 03:30 PT 13.3 H (9.0-12.0) sec APTT 24.2 (22.0-30.0) sec CBC 09/14/21 Range/Units 03:30 WBC 9.6 (3.8-10.6) k/uL RBC 3.52 L (4.30-5.90) m/uL Hgb 11.4 L (13.0-17.5) gm/dL Hct 36.5 L (39.0-53.0) % Plt Count 322 (150-450) k/uL Comprehensive Metabolic Panel 09/14/21 Range/Units 03:30 Sodium 135 L (137-145) mmol/L Potassium 4.4 (3.5-5.1) mmol/L Chloride 103 (98-107) mmol/L Carbon Dioxide 28 (22-30) mmol/L BUN 23 H (9-20) mg/dL Creatinine 0.76 (0.66-1.25) mg/dL Glucose 151 H (74-99) mg/dL Calcium 8.2 L (8.4-10.2) mg/dL AST 30 (17-59) U/L ALT 20 (4-49) U/L Alkaline Phosphatase 61 (38-126) U/L Total Protein 6.5 (6.3-8.2) g/dL Albumin 2.8 L (3.5-5.0) g/dL Current Medications Generic Name Dose Route Start Last Admin Trade Name Freq PRN Reason Stop Dose Admin Albuterol/Ipratropium 3 ml 09/14/21 12:00 Ipratropium-Albuterol 3 Ml Neb INHALATION RT-QID AMIRAH Albuterol/Ipratropium 3 ml 09/14/21 09:24 Ipratropium-Albuterol 3 Ml Neb INHALATION RT-Q2H PRN Shortness Of Breath Or Wheezing Apixaban 5 mg 09/14/21 09:00 Apixaban 5 Mg Tab PO 09/20/21 21:01 BID [facility] Protocol Budesonide 1 mg 09/14/21 20:00 Budesonide 1 Mg/2 Ml Nebu INHALATION RT-BID [facility] Piperacillin Sod/Tazobactam 100 mls @ 25 mls/hr 09/14/21 09:30 Sod 3.375 gm/ Sodium Chloride IVPB Q8HR [facility] Protocol Naloxone HCl 0.2 mg 09/14/21 07:03 Naloxone 0.4 Mg/Ml 1 Ml Vial IV Q2M PRN Opioid Reversal Ondansetron HCl 4 mg 09/14/21 07:42 09/14/21 07:56 Ondansetron 4 Mg/2 Ml Vial IVP 4 mg Q6HR PRN Administration Nausea And Vomiting Intake and Output 09/13/21 09/14/21 09/14/21 22:59 06:59 14:59 Other: Weight 85.729 kg 09/14/21 03:30 09/14/21 03:30 Assessment and Plan Assessment: elevated troponins probably secondary to hypoxia and supply and demand mismatch aspiration pneumonia sick sinus syndrome status post permanent pacemaker Plan: continue with Eliquis Continue with Plavix continue with all other current cardiac medications continue with supplemental oxygen and titrate as tolerated continue with telemetry monitoring Further recommendations based on clinical course The above impression and plan of care have been discussed and directed by the signing physician. Shawna Rivero, nurse practitioner, acting as scribe for signing physician.
[2021-09-14] MEDS ORDERED: MAGNESIUM HYDROXIDE 2,400 MG/10 ML CUP PO PRN (11:22)
[2021-09-14] MEDS ORDERED: NITROGLYCERIN SL TABS 0.4 MG TAB SUBLINGUAL PRN (11:22)
[2021-09-14] MEDS ORDERED: ACETAMINOPHEN TAB 325 MG TAB PO PRN (11:22)
[2021-09-14] MEDS ORDERED: bisacodyL 10 MG SUPP RECTAL PRN (11:22)
[2021-09-14] MEDS: IPRATROPIUM-ALBUTEROL 3 ML NEB INHALATION SCH ×3 (11:30→22:45)
[2021-09-14] MEDS: APIXABAN 5 MG TAB PO SCH ×2 (11:38→17:48)
--- NOTE | 2021-09-14 11:40 | CA ---
Transthoracic Echo Report Name: Rohan Toscano Age: 89 Gender: M : [id number] Exam Date: 09/14/2021 09:27 Exam Location: [facility] Ht (in): 72 Wt (lb): 189 Ordering Physician: Shawna Rivero Attending/Referring Phys: Elevator Service Mechanic Aruna Hoskins RDCS Procedure CPT: Indications: positive trops Cardiac Hx: Technical Quality: Technically difficult study Contrast 1: Lumason Total Dose (mL): 4 Contrast 2: Total Dose (mL): MEASUREMENTS (Male / Female) Normal Values 2D ECHO LV Diastolic Diameter PLAX 2.9 cm 4.2 - 5.9 / 3.9 - 5.3 cm LV Systolic Diameter PLAX 2.5 cm IVS Diastolic Thickness 1.6 cm 0.6 - 1.0 / 0.6 - 0.9 cm LVPW Diastolic Thickness 1.7 cm 0.6 - 1.0 / 0.6 - 0.9 cm LV Relative Wall Thickness 1.1 LA Volume 120.1 cm 18 - 58 / 22 - 52 cm M-MODE Aortic Root Diameter MM 2.1 cm DOPPLER AV Peak Velocity 244.1 cm/s AV Peak Gradient 23.8 mmHg AV Mean Velocity 189.5 cm/s AV Mean Gradient 15.4 mmHg AV Velocity Time Integral 49.7 cm LVOT Peak Velocity 59.3 cm/s LVOT Peak Gradient 1.4 mmHg FINDINGS Left Ventricle Moderately increased left ventricular wall thickness. Moderately reduced global left ventricular systolic function. Left ventricular ejection fraction is estimated at 25-30 %. Right Ventricle Right ventricle not well visualized. Right Atrium Right atrium not well visualized. Left Atrium Severe left atrial dilatation. Mitral Valve [id number] mitral regurgitation. Moderate mitral annular calcification. Aortic Valve Mild aortic stenosis with a peak gradient of 24 mmHg and a mean gradient of 15 mmHg. Trace to mild aortic regurgitation. Tricuspid Valve Tricuspid valve not well visualized. Pulmonic Valve Pulmonic valve not well visualized. Pericardium Small pericardial effusion. Aorta Normal size aortic root and proximal ascending aorta. CONCLUSIONS LV size is normal there is global decrease in contractility but more so in the apical and mid portions. This is bret fairly well ejection fraction is 25-30%. 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 There is also mild gradient across the aortic valve with mild aortic stenosis left atrial enlargement and moderate mitral regurgitation trivial pericardial effusion Previewed by: Dr. Esther Brody MD (Electronically Signed) Final Date: 14 September 2021 11:39
--- NOTE | 2021-09-14 11:48 | P.HPIM ---
History of Present Illness H&P Date: 09/14/21 HISTORY OF PRESENT ILLNESS This is an 89-year-old male patient of Dr. Thornton currently at [facility] for subacute rehab with past medical history of coronary artery disease status post angioplasty and chronic total occlusion of the LAD, 6 sinus syndrome status post permanent recent non-ST elevated myocardial infarction and pacemaker implantation 08/26/2021, persistent atrial fibrillation on eliquis, CVA, hypertension, hyperlipidemia, moderate aortic stenosis, generalized osteo arthritis, glaucoma, short-term memory deficit. Patient was recently at [facility] and discharged on 09/01 to [facility] after he was treated for acute hypoxic respiratory failure from aspiration pneumonia along with acute delirium. Patient developed difficulty in breathing with coughing and gasping, decreased pulse ox and was transferred to [facility] emergency center for evaluation. His pulse ox on arrival was 98% on 2 L nasal cannula. Respiratory rate 2226, heart rate 101, afebrile, blood pressure 137/90. WBC 9.6, hemoglobin 11.4, platelet count 322. INR 1.3. Sodium 135, potassium 4.4, chloride 103, CO2 28, BUN 23 and creatinine 0.76. Blood sugar 151. Lactic acid 1.1. Calcium 8.2. Total bilirubin 0.8, AST 30, ALT 20, alkaline phosphatase 61. Troponin 0.259 and 0.269. Albumin 2.8. Urinalysis showed protein trace, no UTI. Influenza A, influenza B, RSV, COVID-19 all negative. Chest x-ray reveals bilateral patchy pneumonia. No definite heart failure. Patient was admitted to the cardiac stepdown unit, consult requested with cardiology, pulmonary medicine and patient started on Zosyn IV piggyback along with nebulizer treatments. REVIEW OF SYSTEMS Constitutional: No fever, no chills, no night sweats. No weight change. No weakness, fatigue or lethargy. No daytime sleepiness. EENT: No headache. No blurred vision or double vision, no loss of vision. No loss of Hearing, no ringing in the ears, no dizziness. No nasal drainage or congestion. No epistaxis. No sore throat. Lungs: Reports shortness of breath, reports cough, reports sputum production. No wheezing. Cardiovascular: No chest pain, no lower extremity edema. No palpitations. No paroxysmal nocturnal dyspnea. No orthopnea. No lightheadedness or dizziness. No syncopal episodes. Abdominal: No abdominal pain. No nausea, vomiting. No diarrhea. No constipation. No bloody or tarry stools. No loss of appetite. Genitourinary: No dysuria, increased frequency, urgency. No urinary retention. Musculoskeletal: No myalgias. No muscle weakness, no gait dysfunction, no frequent falls. No back pain. No neck pain. Integumentary: No wounds, no lesions. No rash or pruritus. No unusual bruising. No change in hair or nails. Neurologic: No aphasia. No facial droop. No change in mentation. No head injury. No headache. No paralysis. No paresthesia. Psychiatric: No depression. No anxiety. No mood swings. Endocrine: No abnormal blood sugars. No weight change. No excessive sweating or thirst. No cold intolerance. SOCIAL HISTORY Patient was a smoker for 30+ years of 1 pack per day and quit 17 years ago. He denies any alcohol abuse, marijuana or illicit drug use. He lives at home with his . 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 FAMILY HISTORY Mother at age 67 from a stroke. Father at age 59 from brain cancer. Patient has 2 brothers and 2 sisters unsure if these are living. Patient has 3 children. Patient is unable to provide details on his siblings or children. PHYSICAL EXAMINATION Gen: This is an 89-year-old male. His resting in bed appears to be comfortable. No acute respiratory distress is noted. HEENT: Head is atraumatic, normocephalic. Pupils equal, round. Sclerae is anicteric. NECK: Supple. No JVD. No lymphadenopathy. No thyromegaly. LUNGS: Diminished with a few scattered rhonchi. No intercostal retractions. HEART: Irregular rate and rhythm. No murmur. ABDOMEN: Soft. Bowel sounds are present. No masses. No tenderness. EXTREMITIES: No pedal edema. No calf tenderness. NEUROLOGICAL: Patient is awake, alert and oriented to person and place. Cranial nerves 2 through 12 are grossly intact. ASSESSMENT AND PLAN 1. Aspiration pneumonia. Patient started on Zosyn IV piggyback, DuoNeb treatments 4 times daily and as needed, Pulmicort 1 mg twice daily, consult with pulmonary medicine, speech therapy consultation. 2. Elevated troponin, acute coronary syndrome ruled out by cardiology. Continue aspirin 81 mg daily, Lipitor 40 mg daily, Imdur 30 mg daily, Ranexa 500 mg twice daily. 3. History of coronary artery disease status post angioplasty and chronic total occlusion of the LAD. 4. Sick sinus syndrome status post permanent pacemaker, stable. 5. Persistent atrial fibrillation. Continue eliquis 5 mg twice daily, Toprol- XL 25 mg daily. 6. History of CVA. 7. Hyperlipidemia. Continue atorvastatin. 8. Moderate aortic stenosis. 9. 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 10. Generalized debility. PT and OT consults. 11. GI prophylaxis. Protonix. 12. DVT prophylaxis. Eliquis. Patient will be admitted to the hospital for a minimum of 2 night stay. DISCHARGE PLAN Return to [facility]. Impression and plan of care have been directed as dictated by the signing physician. Kimberly Koehler nurse practitioner acting as scribe for signing physician. Past Medical History Past Medical History: Chest Pain / Angina, CVA/TIA, Dementia, Eye Disorder, Hearing Disorder / Deafness, Hyperlipidemia, Osteoarthritis (OA), Prostate Disorder Additional Past Medical History / Comment(s): GLAUCOMA. Hepatitis (surgical per pt) History of Any Multi-Drug Resistant Organisms: None Reported Past Surgical History: Heart Catheterization, Hernia Repair, Joint Replacement, Orthopedic Surgery Past Anesthesia/Blood Transfusion Reactions: No Reported Reaction Past Psychological History: No Psychological Hx Reported Past Alcohol Use History: None Reported Past Drug Use History: None Reported - Past Family History Mother Family Medical History: CVA/TIA Father Family Medical History: Cancer Additional Family Medical History / Comment(s): brain ca Brother(s) Family Medical History: Cancer, Coronary Artery Disease (CAD) Additional Family Medical History / Comment(s): 1 brother CAD & the other brother liver ca Medications and Allergies Home Medications Medication Instructions Recorded Confirmed Type Aspirin 81 mg PO DAILY@1700 09/18/13 09/14/21 History Nitroglycerin Sl Tabs [Nitrostat] 1 tab SUBLINGUAL Q5M PRN #50 tab 05/19/18 09/14/21 Rx Acetaminophen Tab [Tylenol] 650 mg PO Q6H PRN 09/14/21 09/14/21 History Apixaban [Eliquis] 5 mg PO BID@0800,1700 09/14/21 09/14/21 History Atorvastatin [Lipitor] 40 mg PO HS@209909/14/21 09/14/21 History Docusate [Colace] 100 mg PO BID@0800,1700 09/14/21 09/14/21 History Ipratropium-Albuterol Nebulize 3 ml INHALATION RT-Q6H PRN 09/14/21 09/14/21 History [Duoneb 0.5 mg-3 mg/3 ml Soln] Isosorbide Mononitrate ER [Imdur] 30 mg PO DAILY@0800 09/14/21 09/14/21 History Lactose-Reduced Food [Ensure Plus] 120 ml PO TID@0800,1200,1700 09/14/2109/14 History Levofloxacin [Levaquin] 250 mg PO DAILY@0809/14/21 09/14/21 History Magic Cup 1 can PO TID@0800,1200,1700 09/14/21 09/14/21 History Magnesium Hydroxide [Milk of 2,400 mg PO DAILY PRN 09/14/21 09/14/21 History Magnesia] Melatonin 1 mg PO HS@2200 09/14/21 09/14/21 History Metoprolol Succinate [Toprol XL] 25 mg PO DAILY@0809/14/21 09/14/21 History Na Phos,M-B/Na Phos,Di-Ba [Fleet 133 ml RECTAL DAILY PRN 09/14/21 09/14/21 History Adult] Nystatin 100,000 Unit/ml Susp 5 ml PO QID 09/14/21 09/14/21 History [Mycostatin Oral Susp] Polyethylene Glycol 3350 [Miralax] 17 gm PO DAILY@0800 09/14/21 09/14/21 History Ranolazine [Ranolazine ER] 500 mg PO BID@0800,2100 09/14/21 09/14/21 History bisacodyL 10 mg RECTAL DAILY PRN 09/14/21 09/14/21 History Allergies Allergy/AdvReac Type Severity Reaction Status Date / Time No Known Allergies Allergy Verified 09/14/21 09:35 Physical Exam Vitals: Vital Signs Temp Pulse Pulse Resp BP BP Pulse Ox 09/14/21 08:10 97.9 F 95 18 117/75 94 L 09/14/21 07:56 97.9 F 98 20 129/97 94 L 09/14/21 07:00 101 H 20 108/86 96 09/14/21 06:07 99 20 127/96 95 09/14/21 05:08 100 20 125/95 95 09/14/21 05:00 26 H 09/14/21 03:15 100 22 137/90 95 09/14/21 02:59 97.7 F 101 H 22 98 Intake and Output 09/13/21 09/14/21 09/14/21 22:59 06:59 14:59 Other: Weight 85.729 kg Results CBC & Chem 7: 09/14/21 03:30 09/14/21 03:30 Labs: Abnormal Lab Results - Last 24 Hours (Table) 09/14/21 09/14/21 09/14/21 Range/Units 03:30 03:30 03:30 RBC 3.52 L (4.30-5.90) m/uL Hgb 11.4 L (13.0-17.5) gm/dL Hct 36.5 L (39.0-53.0) % MCV 103.8 H (80.0-100.0) fL PT 13.3 H (9.0-12.0) sec INR 1.3 H (<1.2) Sodium 135 L (137-145) mmol/L BUN 23 H (9-20) mg/dL Glucose 151 H (74-99) mg/dL Calcium 8.2 L (8.4-10.2) mg/dL Troponin I (0.000-0.034) ng/mL Albumin 2.8 L (3.5-5.0) g/dL Urine Protein (Negative) 09/14/21 09/14/21 09/14/21 Range/Units 03:30 05:51 05:51 RBC (4.30-5.90) m/uL Hgb (13.0-17.5) gm/dL Hct (39.0-53.0) % MCV (80.0-100.0) fL PT (9.0-12.0) sec INR (<1.2) Sodium (137-145) mmol/L BUN (9-20) mg/dL Glucose (74-99) mg/dL Calcium (8.4-10.2) mg/dL Troponin I 0.259 H* 0.269 H* (0.000-0.034) ng/mL Albumin (3.5-5.0) g/dL Urine Protein Trace H (Negative)
[2021-09-14] MEDS ORDERED: NON FORMULARY DRUG (Magic Cup 1 EACH Ml) PO SCH (12:00)
[2021-09-14] MEDS ORDERED: NON FORMULARY DRUG (Lactose-Reduced Food [Ensure Plus] 237 ML Ml) PO SCH (12:00)
[2021-09-14] MEDS: METOPROLOL SUCCINATE (ER) 25 MG TAB.ER.24H PO SCH (12:46)
[2021-09-14] MEDS: NYSTATIN 100,000 UNIT/ML SUSP 500,000 UNIT/5 ML CUP PO SCH ×3 (12:48→21:31)
[2021-09-14] MEDS: ASPIRIN 81 MG PO SCH (13:56)
[2021-09-14] MEDS: DOCUSATE 100 MG CAP PO SCH (17:48)
--- NOTE | 2021-09-14 18:09 | P.CNPUL ---
History of Present Illness Consult date: 09/14/21 Reason for consult: dyspnea History of present illness: 89-year-old male patient, skilled nursing resident, came into the emergency shortness of breath, cough, hypoxemia and pulse ox and considerably. For now, the patient was hospitalized for complications of hypoxic respiratory failure and the chest x-ray also showed diffuse bilateral pulmonary infiltrates consistent with pneumonia. He is suspected to have aspiration as the patient was recently hospitalized at [facility] for many strokes and the patient had altered mentation, difficulties in swallowing and a time of her discharge the patient was asked to take thickened material and avoid adequate material on which she was found to aspirate. The patient was released from [place] and he was sent to [facility] for further recuperation. Note that during his stay in [facility], the patient also had a pacemaker insertion as the patient was found to have bradycardia/sick sinus syndrome. The patient was also diagnosed having an acute non-ST segment elevation myocardial infarction. The pacemaker was inserted on 08/26/2021. He has chronic atrial fibrillation, CVA, hypertension and hyperlipidemia mother degree of aortic stenosis and coronary artery disease with previous and depressed and stenting and chronic total occlusion of the LAD with collaterals. His most recent echocardiogram showed impaired LV function with an ejection fraction of 25%. For now, his white cell count is not elevated and is currently at 9.6. His hemoglobin is at 11.4. Creatinine is at 0.7. Lactic acid level is at 1.1. He has never been infected with COVID 19 and the patient covid 19 testing was negative. Influenza screen was negative.. The patient is currently on IV Zosyn. Review of Systems Constitutional: No fever, no chills, no night sweats. No weight change. No weakness, fatigue or lethargy. No daytime sleepiness. EENT: No headache. No blurred vision or double vision, no loss of vision. No loss of Hearing, no ringing in the ears, no dizziness. No nasal drainage or congestion. No epistaxis. No sore throat. Lungs: Reports shortness of breath, reports cough, reports sputum production. No wheezing. Cardiovascular: No chest pain, no lower extremity edema. No palpitations. No paroxysmal nocturnal dyspnea. No orthopnea. No lightheadedness or dizziness. No syncopal episodes. Abdominal: No abdominal pain. No nausea, vomiting. No diarrhea. No constipation. No bloody or tarry stools. No loss of appetite. Genitourinary: No dysuria, increased frequency, urgency. No urinary retention. Musculoskeletal: No myalgias. No muscle weakness, no gait dysfunction, no frequent falls. No back pain. No neck pain. Integumentary: No wounds, no lesions. No rash or pruritus. No unusual bruising. No change in hair or nails. Neurologic: No aphasia. No facial droop. No change in mentation. No head injury. No headache. No paralysis. No paresthesia. Psychiatric: No depression. No anxiety. No mood swings. Endocrine: No abnormal blood sugars. No weight change. No excessive sweating or thirst. No cold intolerance. Past Medical History Past Medical History: Chest Pain / Angina, CVA/TIA, Dementia, Eye Disorder, Hearing Disorder / Deafness, Hyperlipidemia, Osteoarthritis (OA), Prostate Disorder Additional Past Medical History / Comment(s): GLAUCOMA. Hepatitis (surgical per pt) History of Any Multi-Drug Resistant Organisms: None Reported Past Surgical History: Heart Catheterization, Hernia Repair, Joint Replacement, Orthopedic Surgery Past Anesthesia/Blood Transfusion Reactions: No Reported Reaction Past Psychological History: No Psychological Hx Reported Past Alcohol Use History: None Reported Past Drug Use History: None Reported - Past Family History Mother Family Medical History: CVA/TIA Father Family Medical History: Cancer Additional Family Medical History / Comment(s): brain ca Brother(s) Family Medical History: Cancer, Coronary Artery Disease (CAD) Additional Family Medical History / Comment(s): 1 brother CAD & the other brother liver ca Medications and Allergies Home Medications Medication Instructions Recorded Confirmed Type Aspirin 81 mg PO DAILY@1700 09/18/13 09/14/21 History Nitroglycerin Sl Tabs [Nitrostat] 1 tab SUBLINGUAL Q5M PRN #50 tab 05/19/18 09/14/21 Rx Acetaminophen Tab [Tylenol] 650 mg PO Q6H PRN 09/14/21 09/14/21 History Apixaban [Eliquis] 5 mg PO BID@0800,1700 09/14/21 09/14/21 History Atorvastatin [Lipitor] 40 mg PO HS@2100 09/14/21 09/14/21 History Docusate [Colace] 100 mg PO BID@0800,1700 04/28/22 04/28/22 History Ipratropium-Albuterol Nebulize 3 ml INHALATION RT-Q6H PRN 09/14/21 09/14/21 Hist ory [Duoneb 0.5 mg-3 mg/3 ml Soln] Isosorbide Mononitrate ER [Imdur] 30 mg PO DAILY@0800 09/14/21 09/14/21 History Lactose-Reduced Food [Ensure Plus] 120 ml PO TID@0800,1200,1700 09/14/21 History Levofloxacin [Levaquin] 250 mg PO DAILY@0800 09/14/21 09/14/21 History Magic Cup 1 can PO TID@0800,1200,1700 09/14/21 09/14/21 History Magnesium Hydroxide [Milk of 2,400 mg PO DAILY PRN 09/14/21 09/14/21 History Magnesia] Melatonin 1 mg PO HS@2200 09/14/21 09/14/21 History Metoprolol Succinate [Toprol XL] 25 mg PO DAILY@0800 09/14/21 09/14/21 History Na Phos,M-B/Na Phos,Di-Ba [Fleet 133 ml RECTAL DAILY PRN 09/14/21 09/14/21 History Adult] Nystatin 100,000 Unit/ml Susp 5 ml PO QID 09/14/21 09/14/21 History [Mycostatin Oral Susp] Polyethylene Glycol 3350 [Miralax] 17 gm PO DAILY@0800 09/14/21 09/14/21 History Ranolazine [Ranolazine ER] 500 mg PO BID@0800,2100 09/14/21 09/14/21 History bisacodyL 10 mg RECTAL DAILY PRN 09/14/21 09/14/21 History Allergies Allergy/AdvReac Type Severity Reaction Status Date / Time No Known Allergies Allergy Verified 09/14/21 09:35 Physical Exam Vitals: Vital Signs Temp Pulse Pulse Resp BP BP BP 09/14/21 16:00 96.7 F L 98 19 99/64 09/14/21 15:45 85 09/14/21 15:34 84 09/14/21 14:00 101 H 20 09/14/21 12:00 101 H 114/73 09/14/21 11:45 89 09/14/21 11:30 88 09/14/21 08:10 97.9 F 95 18 117/75 09/14/21 07:56 97.9 F 98 20 129/97 09/14/21 07:00 101 H 20 108/86 09/14/21 06:07 99 20 127/96 09/14/21 05:08 100 20 125/95 09/14/21 05:00 26 H 09/14/21 03:15 100 22 137/90 09/14/21 02:59 97.7 F 101 H 22 Pulse Ox 09/14/21 16:00 94 L 09/14/21 15:45 09/14/21 15:34 09/14/21 14:00 09/14/21 12:00 91 L 09/14/21 11:45 09/14/21 11:30 09/14/21 08:10 94 L 09/14/21 07:56 94 L 09/14/21 07:00 96 09/14/21 06:07 95 09/14/21 05:08 95 09/14/21 05:00 09/14/21 03:15 95 09/14/21 02:59 98 Intake and Output 09/14/21 09/14/21 09/14/21 06:59 14:59 22:59 Intake Total 240 120 Output Total 200 Balance 40 120 Intake: Oral 240 120 Output: Urine 200 Other: Weight 85.729 kg 85.729 kg Gen. appearance, comfortable, breathing is nonlabored and the patient is on O2 a t 2 L Head exam was generally normal. There was no scleral icterus or corneal arcus. Mucous membranes were moist. Neck was supple and with jugular venous distension, thyromegaly, or carotid bruits. Carotids were easily palpable bilaterally. There was no adenopathy. Lungs sounds are diminished and the patient has crackles in the mid and lower lung casarez bilaterally. The patient also has a pacemaker over the left anterior chest area which is dry clean and intact. Heart sounds are irregular and it systolic ejection murmur grade 2/6 heard over the precordium radiating to the neck. Abdominal exam revealed normal bowel sounds. The abdomen was soft, non-tender, and without masses, organomegaly, or appreciable enlargement of the abdominal aorta. Examination of the extremities revealed easily palpable radial, femoral and pedal pulses. There was no cyanosis, clubbing or edema. Examination of the skin revealed no evidence of significant rashes, suspicious appearing nevi or other concerning lesions. Neurologically, the patient is awake and alert and the patient does not have any focal neurological deficit. Cranial nerves are essentially intact. Results - Laboratory Findings CBC and BMP: 09/14/21 03:30 09/14/21 03:30 PT/INR, D-dimer PT 13.3 sec (9.0-12.0) H 09/14/21 03:30 INR 1.3 (<1.2) H 09/14/21 03:30 Abnormal lab findings: Abnormal Labs 09/14/21 09/14/21 09/14/21 03:30 03:30 03:30 RBC 3.52 L Hgb 11.4 L Hct 36.5 L MCV 103.8 H PT 13.3 H INR 1.3 H Sodium 135 L BUN 23 H Glucose 151 H Calcium 8.2 L Troponin I Albumin 2.8 L Urine Protein 09/14/21 09/14/21 09/14/21 03:30 05:51 05:51 RBC Hgb Hct MCV PT INR Sodium BUN Glucose Calcium Troponin I 0.259 H* 0.269 H* Albumin Urine Protein Trace H - Diagnostic Findings Chest x-ray: image reviewed Assessment and Plan Plan: 1 acute hypoxic respiratory failure with development of diffuse but the pulmonary infiltrates. Chest x-ray shows elevation of left hemidiaphragm and possibly s subpulmonic pleural effusions. The overall picture is consistent probably with a combination of pneumonia/CHF. Consider aspiration pneumonia. Consider chemical pneumonitis. Patient is currently on IV Zosyn 2 CHF with an ejection fraction of 25% and chronic systolic heart failure 3 coronary artery disease with multiple coronary interventions/stenting. The patient does have some underlying troponin leak 4 recent insertion of a pacemaker for sick sinus syndrome 5 chronic atrial fibrillation 6 history of CVAs 7 dementia 8 mother the aortic stenosis 9 hyperlipidemia 10 BPH 11 glucoma 12 impaired performance and functional status secondary to above-mentioned courtney rbidities Plan Swallow evaluation in a.m. and the patient will need a modified barium swallow Continue IV Zosyn Check pro calcitonin level Check proBNP level Put the patient on Lasix 20 mg IV every 24 hours which will allow the patient to have some gentle diuresis should there be any component of CHF Resume outpatient medication Cardiology consultation
[2021-09-14] MEDS: FUROSEMIDE 10 MG/ML 2 ML VIAL IV SCH (21:00)
[2021-09-14] MEDS: RANOLAZINE 500 MG TAB.ER.12H PO SCH (21:30)
[2021-09-14] MEDS: MELATONIN 1 MG TAB PO SCH (21:30)
[2021-09-14] MEDS: ATORVASTATIN 40 MG TAB PO SCH (21:30)
[2021-09-14] MEDS: BUDESONIDE 1 MG/2 ML NEBU INHALATION SCH (22:44)
[2021-09-15] MEDS: PIPERACILLIN-TAZOBACTAM 3.375 GM in SODIUM CHLORIDE 0.9% 100 ML IVPB SCH ×4 (00:03→23:25)
[2021-09-15] MEDS: PANTOPRAZOLE 40 MG TABLET PO SCH (06:22)
[2021-09-15] MEDS: IPRATROPIUM-ALBUTEROL 3 ML NEB INHALATION SCH ×4 (07:25→20:04)
[2021-09-15] MEDS: BUDESONIDE 1 MG/2 ML NEBU INHALATION SCH ×2 (07:25→20:04)
[2021-09-15] MEDS: polyethylene glycoL 3350 17 GM POWD.PACK PO SCH (08:53)
[2021-09-15] MEDS: DOCUSATE 100 MG CAP PO SCH ×2 (08:54→17:22)
[2021-09-15] MEDS: METOPROLOL SUCCINATE (ER) 25 MG TAB.ER.24H PO SCH (08:54)
[2021-09-15] MEDS: NYSTATIN 100,000 UNIT/ML SUSP 500,000 UNIT/5 ML CUP PO SCH ×4 (08:54→20:10)
[2021-09-15] MEDS: FUROSEMIDE 10 MG/ML 2 ML VIAL IV SCH ×2 (08:54→20:09)
[2021-09-15] MEDS: RANOLAZINE 500 MG TAB.ER.12H PO SCH ×2 (08:54→20:09)
[2021-09-15] MEDS: ISOSORBIDE MONONITRATE ER 30 MG TAB.ER.24H PO SCH (08:54)
[2021-09-15] MEDS: APIXABAN 5 MG TAB PO SCH ×2 (08:54→17:23)
--- NOTE | 2021-09-15 09:31 | P.PN ---
Subjective Progress Note Date: 09/15/21 HISTORY OF PRESENT ILLNESS This is an 89-year-old male patient of Dr. Thornton currently at [facility] for subacute rehab with past medical history of coronary artery disease status post angioplasty and chronic total occlusion of the LAD, 6 sinus syndrome status post permanent recent non-ST elevated myocardial infarction and pacemaker implantation 08/26/2021, persistent atrial fibrillation on eliquis, CVA, hypertension, hyperlipidemia, moderate aortic stenosis, generalized osteoarthri tis, glaucoma, short-term memory deficit. Patient was recently at [facility] and discharged on 09/01 to [facility] after he was treated for acute hypoxic respiratory failure from aspiration pneumonia along with acute delirium. Patient developed difficulty in breathing with coughing and gasping, decreased pulse ox and was transferred to [facility] emergency center for evaluation. His pulse ox on arrival was 98% on 2 L nasal cannula. Respiratory rate 2226, heart rate 101, afebrile, blood pressure 137/90. WBC 9.6, hemoglobin 11.4, platelet count 322. INR 1.3. Sodium 135, potassium 4.4, chloride 103, CO2 28, BUN 23 and creatinine 0.76. Blood sugar 151. Lactic acid 1.1. Calcium 8.2. Total bilirubin 0.8, AST 30, ALT 20, alkaline phosphatase 61. Troponin 0.259 and 0.269. Albumin 2.8. Urinalysis showed protein trace, no UTI. Influenza A, influenza B, RSV, COVID-19 all negative. Chest x-ray reveals bilateral patchy pneumonia. No definite heart failure. Patient was admitted to the cardiac stepdown unit, consult requested with cardiology, pulmonary medicine and patient started on Zosyn IV piggyback along with nebulizer treatments. 09/15: Patient has been seen by speech therapy with recommendations for chopped diet with honey thick liquids and one-to-one supervision. Patient was seen today sitting up and recliner eating his breakfast on his own, 8 is at his bedside. Patient is awake and alert. No respiratory distress noted. Patient's been afebrile, heart rate 80, blood pressure 102/72, pulse ox 96% on 2 L nasal cannula. ProBNP 9760, pro-calcitonin 0.06. Patient is followed by pulmonary medicine and continued on Zosyn and Lasix 20 mg IV every 24 hours. Cardiology plans to continue eliquis and Plavix. Echocardiogram reveals EF of 25-30%, global decrease in contractility in the apical and mid portions. 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 Mild gradient across the aortic valve with mild aortic stenosis, left atrial enlargement and moderate mitral regurgitation, trivial pericardial effusion. Patient was previously noted to be in no CODE STATUS but yesterday afternoon, patient's daughter brought in documentation for full CODE STATUS this CODE STATUS was changed to full code. Apparently later in the evening, daughter returned and wanted to change him back to no code. At this point patient's family is to have a family discussion regarding CODE STATUS. Also family related to the patient's nurse that discharge plan is to go to a [facility] in [place]. casino cage manager updated regarding this. Patient will be transferred to [facility] with telemetry. REVIEW OF SYSTEMS Constitutional: No fever, no chills, no night sweats. No weight change. No weakness, fatigue or lethargy. No daytime sleepiness. EENT: No headache. No blurred vision or double vision, no loss of vision. No loss of Hearing, no ringing in the ears, no dizziness. No nasal drainage or congestion. No epistaxis. No sore throat. Lungs: No shortness of breath, reports cough, reports sputum production. No wheezing. Cardiovascular: No chest pain, no lower extremity edema. No palpitations. No paroxysmal nocturnal dyspnea. No orthopnea. No lightheadedness or dizziness. No syncopal episodes. Abdominal: No abdominal pain. No nausea, vomiting. No diarrhea. No constipation. No bloody or tarry stools. No loss of appetite. Genitourinary: No dysuria, increased frequency, urgency. No urinary retention. Musculoskeletal: No myalgias. No muscle weakness, no gait dysfunction, no frequent falls. No back pain. No neck pain. Integumentary: No wounds, no lesions. No rash or pruritus. No unusual bruising. No change in hair or nails. Neurologic: No aphasia. No facial droop. No change in mentation. No head injury. No headache. No paralysis. No paresthesia. Psychiatric: No depression. No anxiety. No mood swings. Endocrine: No abnormal blood sugars. No weight change. No excessive sweating or thirst. No cold intolerance. PHYSICAL EXAMINATION Gen: This is an 89-year-old male. His resting in bed appears to be comfortable. No acute respiratory distress is noted. HEENT: Head is atraumatic, normocephalic. Pupils equal, round. Sclerae is anicteric. NECK: Supple. No JVD. No lymphadenopathy. No thyromegaly. LUNGS: Diminished with a few scattered rhonchi. No intercostal retractions. HEART: Irregular rate and rhythm. No murmur. ABDOMEN: Soft. Bowel sounds are present. No masses. No tenderness. EXTREMITIES: No pedal edema. No calf tenderness. NEUROLOGICAL: Patient is awake, alert and oriented to person and place. Cranial nerves 2 through 12 are grossly intact. ASSESSMENT AND PLAN 1. Aspiration pneumonia. Continue patient on Zosyn IV piggyback, DuoNeb treatments 4 times daily and as needed, Pulmicort 1 mg twice daily, consult with pulmonary medicine, speech therapy consultation. 2. Elevated troponin, acute coronary syndrome ruled out by cardiology. Continue aspirin 81 mg daily, Lipitor 40 mg daily, Imdur 30 mg daily, Ranexa 500 mg twice daily. 3. Acute on chronic systolic heart failure. Continue Lasix 20 mg IV daily. 4. History of coronary artery disease status post angioplasty and chronic total occlusion of the LAD. 5. Sick sinus syndrome status post permanent pacemaker, stable. 6. Persistent atrial fibrillation. Continue eliquis 5 mg twice daily, Toprol- XL 25 mg daily. 7. History of CVA. 8. Hyperlipidemia. Continue atorvastatin. 9. Moderate aortic stenosis. 10. 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 11. Generalized debility. PT and OT consults. 12. GI prophylaxis. Protonix. 13. DVT prophylaxis. Eliquis. DISCHARGE PLAN Discharge to [facility] in [place] on Saturday. Impression and plan of care have been directed as dictated by the signing physician. Kimberly Koehler nurse practitioner acting as scribe for signing physician. Objective - Vital Signs Vital signs: Vital Signs Temp 97 F L 09/15/21 00:00 Pulse 82 09/15/21 07:45 Resp 18 09/15/21 04:00 BP 102/72 09/15/21 04:00 Pulse Ox 96 09/15/21 04:00 Intake & Output 09/14/21 09/15/21 09/15/21 18:59 06:59 18:59 Intake Total 360 Output Total 200 Balance 160 Weight 85.729 kg 77 kg Intake: Oral 360 Output: Urine 200 Other: Voiding Method Diaper Incontinent # Voids 1 - Labs CBC & Chem 7: 09/14/21 03:30 09/14/21 03:30 Labs: Microbiology - Last 24 Hours (Table) 09/14/21 03:15 Blood Culture - Preliminary Blood No Growth after 24 hours 09/14/21 03:25 Blood Culture - Preliminary Blood No Growth after 24 hours
--- NOTE | 2021-09-15 11:49 | P.PN ---
Subjective Progress Note Date: 09/15/21 HISTORY OF PRESENT ILLNESS: This is a pleasant 89-year-old gentleman with a past medical history significant for coronary artery disease status post angioplasty and chronic total occlusion of the LAD, bradycardia status post permanent pacemaker, persistent atrial fibrillation on Eliquis. He follows in the office with Dr Roque. We have been asked to see in consultation for elevated troponin and known coronary artery disease. patient was a recent STEMI and had a permanent pacemaker placed on August 26, 2021. He was at [facility] for rehab. Apparently patient was found in his room dean, diaphoretic, and oxygen saturation in the 70s. patient was brought into the ER and given supplemental oxygen. He is examined today in the ER sitting in bed resting comfortably A&O 1-2. He denies chest pain or shortness of breath. patient is sinus rhythm. troponins are 0.269 and 0.259 probably related to oxygen supply and demand mismatch. Patient was recently admitted for aspiration pneumonia. chest x-ray shows bilateral patchy pneumonia no definite heart failure. He pacer site has a hematoma and ecchymosis, will order pressure dressing to be applied. 09/15/2021 patient examined this morning. He is sitting up in the chair. Patient denies chest pain or pressure. He denies shortness of breath. Telemetry reveals atrial fibrillation with a heart rate in the 90s. Echocardiogram completed revealing ejection fraction 25-30% with moderate to severe MR. PHYSICAL EXAM: VITAL SIGNS: Reviewed. GENERAL: Well-developed in no acute distress. NECK: Supple. No JVD or thyromegaly LUNGS: Respirations even and unlabored. Lungs diminished to auscultation bilaterally. HEART: Irregular rate and rhythm. S1 and S2 heard. Systolic murmur noted. EXTREMITIES: Normal range of motion. No clubbing or cyanosis. Peripheral pulses intact. No lower extremity edema ASSESSMENT: Aspiration pneumonia Elevated troponin, not indicative of acute coronary syndrome Persistent atrial fibrillation, anticoagulated with Eliquis History of coronary artery disease with previous angioplasty and known chronic total occlusion of LAD History of sick sinus syndrome with recent pacemaker implantation Valvular heart disease Hyperlipidemia PLAN: Continue current cardiac medications Further recommendations pending patient course Nurse practitioner note has been reviewed by physician. Signing provider agrees with the documented findings, assessment, and plan of care. Objective - Vital Signs Vital signs: Vital Signs Temp 97.0 F L 09/15/21 08:00 Pulse 79 09/15/21 11:18 Resp 18 09/15/21 04:00 BP 91/59 09/15/21 08:00 Pulse Ox 97 09/15/21 08:00 Intake & Output 09/14/21 09/15/21 09/15/21 18:59 06:59 18:59 Intake Total 360 360 Output Total 200 Balance 160 360 Weight 85.729 kg 77 kg Intake: Oral 360 360 Output: Urine 200 Other: Voiding Method Diaper Incontinent # Voids 1 - Labs CBC & Chem 7: 09/14/21 03:30 09/14/21 03:30 Labs: Microbiology - Last 24 Hours (Table) 09/14/21 03:15 Blood Culture - Preliminary Blood No Growth after 24 hours 09/14/21 03:25 Blood Culture - Preliminary Blood No Growth after 24 hours
--- NOTE | 2021-09-15 12:57 | P.PN ---
Subjective Progress Note Date: 09/15/21 89-year-old male patient, [facility], came into the emergency shortness of breath, cough, hypoxemia and pulse ox and considerably. For now, the patient was hospitalized for complications of hypoxic respiratory failure and the chest x-ray also showed diffuse bilateral pulmonary infiltrates con sistent with pneumonia. He is suspected to have aspiration as the patient was recently hospitalized at [facility] for many strokes and the patient had altered mentation, difficulties in swallowing and a time of her discharge the patient was asked to take thickened material and avoid adequate material on which she was found to aspirate. The patient was released from [facility] and he was sent to [facility] for further recuperation. Note that during his stay in [facility], the patient also had a pacemaker insertion as the patient was found to have bradycardia/sick sinus syndrome. The patient was also diagnosed having an acute non-ST segment elevation myocardial infarction. The pacemaker was inserted on 08/26/2021. He has chronic atrial fibrillation, CVA, hypertension and hyperlipidemia mother degree of aortic stenosis and coronary artery disease with previous and depressed and stenting and chronic total occlusion of the LAD with collaterals. His most recent echocardiogram showed impaired LV function with an ejection fraction of 25%. For now, his white cell count is not elevated and is currently at 9.6. His hemoglobin is at 11.4. Creatinine is at 0.7. Lactic acid level is at 1.1. He has never been infected with COVID 19 and the patient covid 19 testing was negative. Influenza screen was negative.. The patient is currently on IV Zosyn. 09/15/2021, the patient is doing well. The patient has no specific complaints and laying down comfortably in bed. His Titus evaluation is to be done today. There is concern for aspiration. Meanwhile, the patient was found to have a pro calcitonin level of 0.06, the patient's proBNP level was 9760 and the patient is also receiving IV Lasix 20 mg every 12 hours. As far as antibiotic coverage, the patient remains on IV Zosyn. I outpatient medication and resume. No new blood work otherwise for now. Mother the patient has dementia. No agitation. No interval worsening his mental status. Objective - Vital Signs Vital signs: Vital Signs Temp 97.0 F L 09/15/21 08:00 Pulse 79 09/15/21 11:18 Resp 18 09/15/21 04:00 BP 91/59 09/15/21 08:00 Pulse Ox 97 09/15/21 08:00 Intake & Output 09/14/21 09/15/21 09/15/21 18:59 06:59 18:59 Intake Total 360 360 Output Total 200 Balance 160 360 Weight 85.729 kg 77 kg Intake: Oral 360 360 Output: Urine 200 Other: Voiding Method Diaper Incontinent # Voids 1 - Exam Gen. appearance, comfortable, breathing is nonlabored and the patient is on O2 at 2 L Head exam was generally normal. There was no scleral icterus or corneal arcus. Mucous membranes were moist. Neck was supple and with jugular venous distension, thyromegaly, or carotid bruits. Carotids were easily palpable bilaterally. There was no adenopathy. Lungs sounds are diminished and the patient has crackles in the mid and lower lung casarez bilaterally. The patient also has a pacemaker over the left anterior chest area which is dry clean and intact. Heart sounds are irregular and it systolic ejection murmur grade 2/6 heard over the precordium radiating to the neck. Abdominal exam revealed normal bowel sounds. The abdomen was soft, non-tender, and without masses, organomegaly, or appreciable enlargement of the abdominal aorta. Examination of the extremities revealed easily palpable radial, femoral and pedal pulses. There was no cyanosis, clubbing or edema. Examination of the skin revealed no evidence of significant rashes, suspicious appearing nevi or other concerning lesions. Neurologically, the patient is awake and alert and the patient does not have any focal neurological deficit. Cranial nerves are essentially intact. - Labs CBC & Chem 7: 09/14/21 03:30 09/14/21 03:30 Labs: Microbiology - Last 24 Hours (Table) 09/14/21 03:15 Blood Culture - Preliminary Blood No Growth after 24 hours 09/14/21 03:25 Blood Culture - Preliminary Blood No Growth after 24 hours Assessment and Plan Plan: 1 acute hypoxic respiratory failure with development of diffuse but the pulmon bela infiltrates. Chest x-ray shows elevation of left hemidiaphragm and possibly s subpulmonic pleural effusions. The overall picture is consistent probably with a combination of pneumonia/CHF. Consider aspiration pneumonia. Consider chemical pneumonitis. Patient is currently on IV Zosyn 2 CHF with an ejection fraction of 25% and chronic systolic heart failure 3 coronary artery disease with multiple coronary interventions/stenting. The patient does have some underlying troponin leak 4 recent insertion of a pacemaker for sick sinus syndrome 5 chronic atrial fibrillation 6 history of CVAs 7 dementia 8 mother the aortic stenosis 9 hyperlipidemia 10 BPH 11 glucoma 12 impaired performance and functional status secondary to above-mentioned comorbidities Plan Echocardiogram showed impaired LV function with an ejection fraction of 25-30%. The patient has apical ballooning possibly. There was also mild gradient across the aortic valve and mild aortic stenosis Swallow evaluation in a.m. and the patient will need a modified barium swallow Continue IV Zosyn Check pro calcitonin level is currently low Check proBNP level is elevated Continue Lasix 20 mg IV every 24 hours which will allow the patient to have some gentle diuresis should there be any component of CHF Repeat chest x-ray in the morning Cardiology consultation We'll continue to follow
[2021-09-15] MEDS: ASPIRIN 81 MG PO SCH (17:22)
[2021-09-15] MEDS: ATORVASTATIN 40 MG TAB PO SCH (20:09)
[2021-09-15] MEDS: MELATONIN 1 MG TAB PO SCH (20:09)
[2021-09-16] MEDS: PANTOPRAZOLE 40 MG TABLET PO SCH (06:03)
[2021-09-16] MEDS: BUDESONIDE 1 MG/2 ML NEBU INHALATION SCH ×2 (08:49→19:37)
[2021-09-16] MEDS: IPRATROPIUM-ALBUTEROL 3 ML NEB INHALATION SCH ×4 (08:49→19:37)
[2021-09-16] MEDS: DOCUSATE 100 MG CAP PO SCH ×2 (09:07→16:04)
[2021-09-16] MEDS: NYSTATIN 100,000 UNIT/ML SUSP 500,000 UNIT/5 ML CUP PO SCH ×4 (09:07→23:18)
[2021-09-16] MEDS: RANOLAZINE 500 MG TAB.ER.12H PO SCH ×2 (09:07→22:57)
[2021-09-16] MEDS: polyethylene glycoL 3350 17 GM POWD.PACK PO SCH (09:07)
[2021-09-16] MEDS: METOPROLOL SUCCINATE (ER) 25 MG TAB.ER.24H PO SCH (09:07)
[2021-09-16] MEDS: ISOSORBIDE MONONITRATE ER 30 MG TAB.ER.24H PO SCH (09:07)
[2021-09-16] MEDS: APIXABAN 5 MG TAB PO SCH ×2 (09:07→16:04)
[2021-09-16] MEDS: FUROSEMIDE 10 MG/ML 2 ML VIAL IV SCH (09:07)
[2021-09-16] MEDS: PIPERACILLIN-TAZOBACTAM 3.375 GM in SODIUM CHLORIDE 0.9% 100 ML IVPB SCH ×3 (09:20→23:37)
--- NOTE | 2021-09-16 09:44 | XR ---
EXAMINATION TYPE: XR chest 2V DATE OF EXAM: 09/16/2021 COMPARISON: 09/16/2021 INDICATION: CHF TECHNIQUE: Frontal and lateral views of the chest are obtained. FINDINGS: The heart size is upper limits of normal. The pulmonary vasculature is normal. There is a consolidation in the right upper lobe. This is slightly progressive. Increased lung markin gs are present bilaterally. Pacemaker overlies left chest.. IMPRESSION: 1. Progressive infiltrate in the right upper lobe. Diffuse increased lung markings remain stable thro ugh the bilateral lung casarez. Continued follow-up is recommended.
--- NOTE | 2021-09-16 09:46 | XR ---
EXAMINATION TYPE: XR chest 1V DATE OF EXAM: 09/16/2021 COMPARISON: 09/14/2021 INDICATION: CHF TECHNIQUE: Single frontal view of the chest is obtained. FINDINGS: The heart size is mildly prominent. The pulmonary vasculature is normal. There is diffuse increased lung markings to the right lung. Peripheral increased lung markings are on the left. Findings are nonspecific. Consider atypical pneumonia. IMPRESSION: 1. Nonspecific increased lung markings present bilaterally. Continued follow-up is recommended. Consi apolonia atypical pneumonia.
--- NOTE | 2021-09-16 10:07 | P.PN ---
Subjective Progress Note Date: 09/16/21 HISTORY OF PRESENT ILLNESS This is an 89-year-old male patient of Dr. Thornton currently at [facility] for subacute rehab with past medical history of coronary artery disease status post angioplasty and chronic total occlusion of the LAD, 6 sinus syndrome status post permanent recent non-ST elevated myocardial infarction and pacemaker implantation 08/26/2021, persistent atrial fibrillation on eliquis, CVA, hypertension, hyperlipidemia, moderate aortic stenosis, generalized osteoarthri tis, glaucoma, short-term memory deficit. Patient was recently at [facility] and discharged on 09/01 to [facility] after he was treated for acute hypoxic respiratory failure from aspiration pneumonia along with acute delirium. Patient developed difficulty in breathing with coughing and gasping, decreased pulse ox and was transferred to [facility] emergency center for evaluation. His pulse ox on arrival was 98% on 2 L nasal cannula. Respiratory rate 2226, heart rate 101, afebrile, blood pressure 137/90. WBC 9.6, hemoglobin 11.4, platelet count 322. INR 1.3. Sodium 135, potassium 4.4, chloride 103, CO2 28, BUN 23 and creatinine 0.76. Blood sugar 151. Lactic acid 1.1. Calcium 8.2. Total bilirubin 0.8, AST 30, ALT 20, alkaline phosphatase 61. Troponin 0.259 and 0.269. Albumin 2.8. Urinalysis showed protein trace, no UTI. Influenza A, influenza B, RSV, COVID-19 all negative. Chest x-ray reveals bilateral patchy pneumonia. No definite heart failure. Patient was admitted to the cardiac stepdown unit, consult requested with cardiology, pulmonary medicine and patient started on Zosyn IV piggyback along with nebulizer treatments. 09/15: Patient has been seen by speech therapy with recommendations for chopped diet with honey thick liquids and one-to-one supervision. Patient was seen today sitting up and recliner eating his breakfast on his own, 8 is at his bedside. Patient is awake and alert. No respiratory distress noted. Patient's been afebrile, heart rate 80, blood pressure 102/72, pulse ox 96% on 2 L nasal cannula. ProBNP 9760, pro-calcitonin 0.06. Patient is followed by pulmonary medicine and continued on Zosyn and Lasix 20 mg IV every 24 hours. Cardiology plans to continue eliquis and Plavix. Echocardiogram reveals EF of 25-30%, global decrease in contractility in the apical and mid portions. 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 Mild gradient across the aortic valve with mild aortic stenosis, left atrial enlargement and moderate mitral regurgitation, trivial pericardial effusion. Patient was previously noted to be in no CODE STATUS but yesterday afternoon, patient's daughter brought in documentation for full CODE STATUS this CODE STATUS was changed to full code. Apparently later in the evening, daughter returned and wanted to change him back to no code. At this point patient's family is to have a family discussion regarding CODE STATUS. Also family related to the patient's nurse that discharge plan is to go to a half-way in [place]. oracle database manager updated regarding this. Patient will be transferred to [facility] with telemetry. 09/16: Patient was observed to have aspiration today with his foot this morning, chest x-ray was requested, per and did talk with family back and forth about aggressive management including PEG tube, feeding tube or artificial feeding has not came with any result this point. 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 Apparently family still interested to transfer patient one of the half-way in [place] for more physical therapy which might happen sometimes early this week. REVIEW OF SYSTEMS Constitutional: No fever, no chills, no night sweats. No weight change. No weakness, fatigue or lethargy. No daytime sleepiness. EENT: No headache. No blurred vision or double vision, no loss of vision. No loss of Hearing, no ringing in the ears, no dizziness. No nasal drainage or congestion. No epistaxis. No sore throat. Lungs: No shortness of breath, reports cough, reports sputum production. No wheezing. Cardiovascular: No chest pain, no lower extremity edema. No palpitations. No paroxysmal nocturnal dyspnea. No orthopnea. No lightheadedness or dizziness. No syncopal episodes. Abdominal: No abdominal pain. No nausea, vomiting. No diarrhea. No constipation. No bloody or tarry stools. No loss of appetite. Genitourinary: No dysuria, increased frequency, urgency. No urinary retention. Musculoskeletal: No myalgias. No muscle weakness, no gait dysfunction, no frequent falls. No back pain. No neck pain. Integumentary: No wounds, no lesions. No rash or pruritus. No unusual bruising. No change in hair or nails. Neurologic: No aphasia. No facial droop. No change in mentation. No head injury. No headache. No paralysis. No paresthesia. Psychiatric: No depression. No anxiety. No mood swings. Endocrine: No abnormal blood sugars. No weight change. No excessive sweating or thirst. No cold intolerance. PHYSICAL EXAMINATION Gen: This is an 89-year-old male. His resting in bed appears to be comfortable. No acute respiratory distress is noted. HEENT: Head is atraumatic, normocephalic. Pupils equal, round. Sclerae is anicteric. NECK: Supple. No JVD. No lymphadenopathy. No thyromegaly. LUNGS: Diminished with a few scattered rhonchi. No intercostal retractions. HEART: Irregular rate and rhythm. No murmur. ABDOMEN: Soft. Bowel sounds are present. No masses. No tenderness. EXTREMITIES: No pedal edema. No calf tenderness. NEUROLOGICAL: Patient is awake, alert and oriented to person and place. Cranial nerves 2 through 12 are grossly intact. ASSESSMENT AND PLAN 1. Aspiration pneumonia. Continue patient on Zosyn IV piggyback, DuoNeb treatments 4 times daily and as needed, Pulmicort 1 mg twice daily, consult with pulmonary medicine, speech therapy consultation. Sadly patient continued to have aspiration on daily basis we should check if patient should go on nothing by mouth with PEG tube feeding at this point. 2. Elevated troponin, with severe cardiomyopathy, patient was started on Ranexa and/or Lipitor aspirin and furosemide. His a medical management no further angiogram will be done at this point. 3. Acute on chronic systolic heart failure. With ejection fraction of 25-30 percentile, still on IV Lasix along with Ranexa, isosorbide, metoprolol patient probably can benefit from smaller dose of ARB. 4. History of coronary artery disease status post angioplasty and chronic total occlusion of the LAD. 5. Sick sinus syndrome status post permanent pacemaker, stable. 6. Persistent atrial fibrillation. Continue eliquis 5 mg twice daily, Toprol- XL 25 mg daily. Pulse rate has been well controlled. 7. History of CVA. Still have slight weakness in the right side along with dys phagia and severe abnormal balance and gait. 8. Hyperlipidemia. Continue atorvastatin 40 mg daily. 9. Moderate aortic stenosis, we'll continue medical management this point patient need to continue follow-up with cardiology if this become worse in the future might benefit from TAVR. 10. 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 11. Generalized debility. PT and OT consults. We'll continue physical therapy. DISCHARGE PLAN Discharge to half-way in [place] on Saturday. Objective - Vital Signs Vital signs: Vital Signs Temp 97.8 F 09/15/21 23:30 Pulse 96 09/16/21 09:05 Resp 17 09/16/21 04:35 BP 97/69 09/16/21 04:35 Pulse Ox 97 09/16/21 04:35 Intake & Output 09/15/21 09/16/21 09/16/21 18:59 06:59 18:59 Intake Total 600 120 Output Total 320 150 200 Balance 280 -150 -80 Weight 77 kg Intake: Oral 600 120 Output: Urine 320 150 200 Other: Voiding Method Diaper Urinal Incontinent Diaper Incontinent # Voids 3 - Labs CBC & Chem 7: 09/14/21 03:30 09/14/21 03:30 Labs: Microbiology - Last 24 Hours (Table) 09/14/21 03:15 Blood Culture - Preliminary Blood No Growth after 48 hours 09/14/21 03:25 Blood Culture - Preliminary Blood No Growth after 48 hours
--- NOTE | 2021-09-16 10:38 | P.PN ---
Subjective Progress Note Date: 09/16/21 She is seen this morning sleeping comfortably in bed. He denies chest pain or shortness of breath. Patient is sinus rhythm on the monitor with a controlled heart rate. Will transition patient to oral Lasix. Objective - Vital Signs Vital signs: Vital Signs Temp 97.8 F 09/16/21 08:00 Pulse 96 09/16/21 09:05 Resp 18 09/16/21 08:00 BP 108/70 09/16/21 08:00 Pulse Ox 95 09/16/21 08:00 Intake & Output 09/15/21 09/16/21 09/16/21 18:59 06:59 18:59 Intake Total 600 120 Output Total 320 150 200 Balance 280 -150 -80 Weight 77 kg Intake: Oral 600 120 Output: Urine 320 150 200 Other: Voiding Method Diaper Urinal Incontinent Diaper Incontinent # Voids 3 - Exam PHYSICAL EXAM: VITAL SIGNS: Reviewed. GENERAL: Well-developed in no acute distress. HEENT: Head is normocephalic. Pupils are equal, round. Sclerae anicteric. Mucous membranes of the mouth are moist. NECK: Supple. No JVD or thyromegaly RESPIRATORY: Respirations even and unlabored. Lungs diminished to auscultation bilaterally. CARDIO: Regular rate and rhythm. S1 and S2 heard. No murmur or gallops. EXTREMITIES: Normal range of motion. No clubbing or cyanosis. Peripheral pulses intact. Negative for bilateral lower extremity edema NEURO: Orientated to person, time, mood is appropriate - Labs CBC & Chem 7: 09/14/21 03:30 09/14/21 03:30 Labs: Microbiology - Last 24 Hours (Table) 09/14/21 03:15 Blood Culture - Preliminary Blood No Growth after 48 hours 09/14/21 03:25 Blood Culture - Preliminary Blood No Growth after 48 hours Assessment and Plan Assessment: elevated troponins probably secondary to hypoxia and supply and demand mismatch aspiration pneumonia sick sinus syndrome status post permanent pacemaker History of coronary artery disease with previous angioplasty and known chronic total occlusion of LAD Plan: Transition patient to Lasix 40 mg daily by mouth continue with all other current cardiac medications continue with supplemental oxygen and titrate as tolerated continue with telemetry monitoring Further recommendations based on clinical course The above impression and plan of care have been discussed and directed by the signing physician. Shawna Glaza, nurse practitioner, acting as scribe for signing physician.
--- NOTE | 2021-09-16 11:14 | P.PN ---
Subjective Progress Note Date: 09/16/21 89-year-old male patient, [facility] resident, came into the emergency shortness of breath, cough, hypoxemia and pulse ox and considerably. For now, the patient was hospitalized for complications of hypoxic respiratory failure and the chest x-ray also showed diffuse bilateral pulmonary infiltrates con sistent with pneumonia. He is suspected to have aspiration as the patient was recently hospitalized at [facility] for many strokes and the patient had altered mentation, difficulties in swallowing and a time of her discharge the patient was asked to take thickened material and avoid adequate material on which she was found to aspirate. The patient was released from [place] and he was sent to [facility] for further recuperation. Note that during his stay in [facility], the patient also had a pacemaker insertion as the patient was found to have bradycardia/sick sinus syndrome. The patient was also diagnosed having an acute non-ST segment elevation myocardial infarction. The pacemaker was inserted on 08/26/2021. He has chronic atrial fibrillation, CVA, hypertension and hyperlipidemia mother degree of aortic stenosis and coronary artery disease with previous and depressed and stenting and chronic total occlusion of the LAD with collaterals. His most recent echocardiogram showed impaired LV function with an ejection fraction of 25%. For now, his white cell count is not elevated and is currently at 9.6. His hemoglobin is at 11.4. Creatinine is at 0.7. Lactic acid level is at 1.1. He has never been infected with COVID 19 and the patient covid 19 testing was negative. Influenza screen was negative.. The patient is currently on IV Zosyn. 09/15/2021, the patient is doing well. The patient has no specific complaints and laying down comfortably in bed. His Titus evaluation is to be done today. There is concern for aspiration. Meanwhile, the patient was found to have a pro calcitonin level of 0.06, the patient's proBNP level was 9760 and the patient is also receiving IV Lasix 20 mg every 12 hours. As far as antibiotic coverage, the patient remains on IV Zosyn. I outpatient medication and resume. No new blood work otherwise for now. Mother the patient has dementia. No agitation. No interval worsening his mental status. 09/16/2021, the patient is doing well. No specific complaints. A repeat chest x-ray was done that showed that the heart and pulmonary vasculature is within normal limits. There is some increased lung markings on the right and some peripheral increased lung markings on the left. The patient is afebrile. The patient remains on IV Lasix. The patient is hemodynamically stable. The patient remains on IV Zosyn. Note that on today's blood work still pending, meanwhile, the patient had a low pro calcitonin level in the proBNP level was quite elevated and patient remains on Eliquis 5 mg by mouth twice a day, the patient is also on Lasix 20 mg IV every 12 hours. The patient remains on IV Zosyn. Objective - Vital Signs Vital signs: Vital Signs Temp 97.8 F 09/16/21 08:00 Pulse 96 09/16/21 09:05 Resp 18 09/16/21 08:00 BP 108/70 09/16/21 08:00 Pulse Ox 95 09/16/21 08:00 Intake & Output 09/15/21 09/16/21 09/16/21 18:59 06:59 18:59 Intake Total 600 120 Output Total 320 150 200 Balance 280 -150 -80 Weight 77 kg Intake: Oral 600 120 Output: Urine 320 150 200 Other: Voiding Method Diaper Urinal Incontinent Diaper Incontinent # Voids 3 - Exam Gen. appearance, comfortable, breathing is nonlabored and the patient is on O2 at 2 L Head exam was generally normal. There was no scleral icterus or corneal arcus. Mucous membranes were moist. Neck was supple and with jugular venous distension, thyromegaly, or carotid brui ts. Carotids were easily palpable bilaterally. There was no adenopathy. Lungs sounds are diminished and the patient has crackles in the mid and lower lung casarez bilaterally. The patient also has a pacemaker over the left anterior chest area which is dry clean and intact. Heart sounds are irregular and it systolic ejection murmur grade 2/6 heard over the precordium radiating to the neck. Abdominal exam revealed normal bowel sounds. The abdomen was soft, non-tender, and without masses, organomegaly, or appreciable enlargement of the abdominal aorta. Examination of the extremities revealed easily palpable radial, femoral and pedal pulses. There was no cyanosis, clubbing or edema. Examination of the skin revealed no evidence of significant rashes, suspicious appearing nevi or other concerning lesions. Neurologically, the patient is awake and alert and the patient does not have any focal neurological deficit. Cranial nerves are essentially intact. - Labs CBC & Chem 7: 09/14/21 03:30 09/14/21 03:30 Labs: Microbiology - Last 24 Hours (Table) 09/14/21 03:15 Blood Culture - Preliminary Blood No Growth after 48 hours 09/14/21 03:25 Blood Culture - Preliminary Blood No Growth after 48 hours Assessment and Plan Plan: 1 acute hypoxic respiratory failure with development of diffuse but the pulmonary infiltrates. Chest x-ray shows elevation of left hemidiaphragm and possibly s subpulmonic pleural effusions. The overall picture is consistent probably with a combination of pneumonia/CHF. Consider aspiration pneumonia. Consider chemical pneumonitis. Patient is currently on IV Zosyn 2 CHF with an ejection fraction of 25% and chronic systolic heart failure 3 coronary artery disease with multiple coronary interventions/stenting. The patient does have some underlying troponin leak 4 recent insertion of a pacemaker for sick sinus syndrome 5 chronic atrial fibrillation 6 history of CVAs 7 dementia 8 mother the aortic stenosis 9 hyperlipidemia 10 BPH 11 glucoma 12 impaired performance and functional status secondary to above-mentioned c omorbidities Plan Echocardiogram showed impaired LV function with an ejection fraction of 25-30%. The patient has apical ballooning possibly. There was also mild gradient across the aortic valve and mild aortic stenosis Repeat chest x-ray was noted from today and the findings are stable, slightly improved upon my comparison Continue IV Zosyn pro calcitonin level is currently low proBNP level is elevated Continue Lasix 20 mg IV every 24 hours which will allow the patient to have some gentle diuresis should there be any component of CHF Repeat chest x-ray in the morning Cardiology consultation We'll continue to follow
[2021-09-16] MEDS: ASPIRIN 81 MG PO SCH (16:04)
[2021-09-16] MEDS: FUROSEMIDE 20 MG TAB PO SCH (16:04)
[2021-09-16] MEDS: MELATONIN 1 MG TAB PO SCH (22:56)
[2021-09-16] MEDS: ATORVASTATIN 40 MG TAB PO SCH (22:56)
[2021-09-17] MEDS ORDERED: NITROGLYCERIN OINT 1 INCH/GM PACKET TOPICAL STA (04:10)
[2021-09-17] MEDS: IPRATROPIUM-ALBUTEROL 3 ML NEB INHALATION SCH ×4 (07:25→21:22)
[2021-09-17] MEDS: BUDESONIDE 1 MG/2 ML NEBU INHALATION SCH ×2 (07:25→21:22)
[2021-09-17] MEDS: METOPROLOL SUCCINATE (ER) 25 MG TAB.ER.24H PO SCH (08:12)
[2021-09-17] MEDS: ISOSORBIDE MONONITRATE ER 30 MG TAB.ER.24H PO SCH (08:12)
[2021-09-17] MEDS: polyethylene glycoL 3350 17 GM POWD.PACK PO SCH (08:51)
[2021-09-17] MEDS: PANTOPRAZOLE 40 MG TABLET PO SCH (08:52)
[2021-09-17] MEDS: APIXABAN 5 MG TAB PO SCH ×2 (08:52→15:42)
[2021-09-17] MEDS: FUROSEMIDE 20 MG TAB PO SCH ×2 (08:52→15:42)
[2021-09-17] MEDS: PIPERACILLIN-TAZOBACTAM 3.375 GM in SODIUM CHLORIDE 0.9% 100 ML IVPB SCH ×3 (08:52→23:29)
[2021-09-17] MEDS: DOCUSATE 100 MG CAP PO SCH ×2 (08:52→15:42)
[2021-09-17] MEDS: RANOLAZINE 500 MG TAB.ER.12H PO SCH ×2 (08:52→21:15)
[2021-09-17] MEDS: NYSTATIN 100,000 UNIT/ML SUSP 500,000 UNIT/5 ML CUP PO SCH ×4 (08:59→21:15)
[2021-09-17 09:11] LABS: HGB 10.7 g/dL (13.0-17.0); MCH 32.4 pg (27.0-32.0); MCHC 31.5 g/dL (32.0-37.0); Mean Platelet Volume 9.9 fL (9.5-12.2); NRBC Per 100 WBC 0 /100 WBCS (0.0-0.0); Platelet Count 309 X 10*3/uL (140-440); RDW 13.6 % (11.5-14.5); WBC 7.48 X 10*3/uL (4.50-10.00)
[2021-09-17 09:28] LABS: African American GFR (CKD) 88.8 (60.0-200.0); Albumin/Globulin Ratio 0.93 (1.60-3.17); Anion Gap 4.9 mmol/L (10.00-18.00); BUN/Creat Ratio 20.53 Ratio (12.00-20.00); Blood Urea Nitrogen 17.8 mg/dL (9.0-27.0); Calcium 8.1 mg/dL (8.7-10.3); Carbon Dioxide 32.8 mmol/L (20.0-27.5); Globulin 3.2 g/dL (1.6-3.3); Non-African American GFR(CKD) 76.6 (60.0-200.0); Potassium 4.2 mmol/L (3.5-5.5); Total Bilirubin 0.5 mg/dL (0.30-1.20); Total Protein 6.2 g/dL (6.2-8.2)
--- NOTE | 2021-09-17 12:27 | P.PN ---
Subjective Progress Note Date: 09/17/21 89-year-old male patient, [facility] resident, came into the emergency shortness of breath, cough, hypoxemia and pulse ox and considerably. For now, the patient was hospitalized for complications of hypoxic respiratory failure and the chest x-ray also showed diffuse bilateral pulmonary infiltrates con sistent with pneumonia. He is suspected to have aspiration as the patient was recently hospitalized at [facility] for many strokes and the patient had altered mentation, difficulties in swallowing and a time of her discharge the patient was asked to take thickened material and avoid adequate material on which she was found to aspirate. The patient was released from [place] and he was sent to [facility] for further recuperation. Note that during his stay in [facility], the patient also had a pacemaker insertion as the patient was found to have bradycardia/sick sinus syndrome. The patient was also diagnosed having an acute non-ST segment elevation myocardial infarction. The pacemaker was inserted on 08/26/2021. He has chronic atrial fibrillation, CVA, hypertension and hyperlipidemia mother degree of aortic stenosis and coronary artery disease with previous and depressed and stenting and chronic total occlusion of the LAD with collaterals. His most recent echocardiogram showed impaired LV function with an ejection fraction of 25%. For now, his white cell count is not elevated and is currently at 9.6. His hemoglobin is at 11.4. Creatinine is at 0.7. Lactic acid level is at 1.1. He has never been infected with COVID 19 and the patient covid 19 testing was negative. Influenza screen was negative.. The patient is currently on IV Zosyn. 09/15/2021, the patient is doing well. The patient has no specific complaints and laying down comfortably in bed. His Titus evaluation is to be done today. There is concern for aspiration. Meanwhile, the patient was found to have a pro calcitonin level of 0.06, the patient's proBNP level was 9760 and the patient is also receiving IV Lasix 20 mg every 12 hours. As far as antibiotic coverage, the patient remains on IV Zosyn. I outpatient medication and resume. No new blood work otherwise for now. Mother the patient has dementia. No agitation. No interval worsening his mental status. 09/16/2021, the patient is doing well. No specific complaints. A repeat chest x-ray was done that showed that the heart and pulmonary vasculature is within normal limits. There is some increased lung markings on the right and some peripheral increased lung markings on the left. The patient is afebrile. The patient remains on IV Lasix. The patient is hemodynamically stable. The patient remains on IV Zosyn. Note that on today's blood work still pending, meanwhile, the patient had a low pro calcitonin level in the proBNP level was quite elevated and patient remains on Eliquis 5 mg by mouth twice a day, the patient is also on Lasix 20 mg IV every 12 hours. The patient remains on IV Zosyn. 09/17/2021, the patient is resting comfortably in bed. The patient has no specific complaints. The patient has a component of CHF an aspiration pneumonia. The patient remains on IV Zosyn and the patient is also receiving Lasix 20 mg by mouth twice a day. The patient has a white cell count is 7.48 with a hemoglobin of 10.7 and the plated count of 309. BUN is at 17 with a creatinine of 0.9. Sodium level is at 136. Pro calcitonin level is at 0.06. UA has been negative. Influenza screen is negative. Coronary testing of been negative. The family is interested in taking this patient for an ECF out of [facility] - Vital Signs Vital signs: Vital Signs Temp 98.6 F 09/17/21 08:00 Pulse 62 09/17/21 08:00 Resp 21 09/17/21 04:48 BP 81/52 09/17/21 08:00 Pulse Ox 94 L 09/17/21 08:00 Intake & Output 09/16/21 09/17/21 09/17/21 18:59 06:59 18:59 Intake Total 240 400 100 Output Total 500 Balance -260 400 100 Intake: Intake, IV Titration 100 100 Amount Piperacillin-Tazobactam 3 100 100 .375 gm In Sodium Chloride 0.9% 100 ml @ 25 mls/hr IVPB Q8HR [facility] Rx# :[id number] Oral 240 300 Output: Urine 500 Other: Voiding Method Urinal Diaper Incontinent # Voids 3 1 # Bowel Movements 0 2 - Exam Gen. appearance, comfortable, breathing is nonlabored and the patient is on O2 at 2 L Head exam was generally normal. There was no scleral icterus or corneal arcus. Mucous membranes were moist. Neck was supple and with jugular venous distension, thyromegaly, or carotid bruits. Carotids were easily palpable bilaterally. There was no adenopathy. Lungs sounds are diminished and the patient has crackles in the mid and lower lung casarez bilaterally. The patient also has a pacemaker over the left anterior chest area which is dry clean and intact. Heart sounds are irregular and it systolic ejection murmur grade 2/6 heard over the precordium radiating to the neck. Abdominal exam revealed normal bowel sounds. The abdomen was soft, non-tender, and without masses, organomegaly, or appreciable enlargement of the abdominal aorta. Examination of the extremities revealed easily palpable radial, femoral and pedal pulses. There was no cyanosis, clubbing or edema. Examination of the skin revealed no evidence of significant rashes, suspicious appearing nevi or other concerning lesions. Neurologically, the patient is awake and alert and the patient does not have any focal neurological deficit. Cranial nerves are essentially intact. - Labs CBC & Chem 7: 09/17/21 06:24 09/17/21 06:24 Labs: Abnormal Lab Results - Last 24 Hours (Table) 09/17/21 09/17/21 Range/Units 06:24 06:24 RBC 3.30 L (4.40-5.60) X 10*6/uL Hgb 10.7 L (13.0-17.0) g/dL Hct 34.0 L (39.6-50.0) % MCV 103.0 H (80.0-97.0) fL MCH 32.4 H (27.0-32.0) pg MCHC 31.5 L (32.0-37.0) g/dL Carbon Dioxide 32.8 H (20.0-27.5) mmol/L Anion Gap 4.90 L (10.00-18.00) mmol/L BUN/Creatinine Ratio 20.53 H (12.00-20.00) Ratio Calcium 8.1 L (8.7-10.3) mg/dL Albumin 3.0 L (3.8-4.9) g/dL Albumin/Globulin Ratio 0.93 L (1.60-3.17) g/dL Microbiology - Last 24 Hours (Table) 09/14/21 03:15 Blood Culture - Preliminary Blood No Growth after 72 hours 09/14/21 03:25 Blood Culture - Preliminary Blood No Growth after 72 hours Assessment and Plan Plan: 1 acute hypoxic respiratory failure with development of diffuse but the pulmonary infiltrates. Chest x-ray shows elevation of left hemidiaphragm and possibly s subpulmonic pleural effusions. The overall picture is consistent probably with a combination of pneumonia/CHF. Consider aspiration pneumonia. Consider chemical pneumonitis. Patient is currently on IV Zosyn 2 CHF with an ejection fraction of 25% and chronic systolic heart failure 3 coronary artery disease with multiple coronary interventions/stenting. The patient does have some underlying troponin leak 4 recent insertion of a pacemaker for sick sinus syndrome 5 chronic atrial fibrillation 6 history of CVAs 7 dementia 8 mother the aortic stenosis 9 hyperlipidemia 10 BPH 11 glucoma 12 impaired performance and functional status secondary to above-mentioned com orbidities Plan Echocardiogram showed impaired LV function with an ejection fraction of 25-30%. The patient has apical ballooning possibly. There was also mild gradient across the aortic valve and mild aortic stenosis Clinically stable Continue IV Zosyn Continue oral diuretics pro calcitonin level is currently low proBNP level is elevated Repeat chest x-ray in the morning ECF placement We'll continue to follow
--- NOTE | 2021-09-17 13:28 | P.PN ---
Subjective Progress Note Date: 09/17/21 She is seen resting comfortably sitting up in bed with family at the bedside. Last night patient had an episode of chest pain with shortness of breath he was started on Nitropaste and denies any reoccurring episodes of chest pain. he remains sinus rhythm on the monitor. [facility] - Vital Signs Vital signs: Vital Signs Temp 98.6 F 09/17/21 08:00 Pulse 62 09/17/21 08:00 Resp 21 09/17/21 04:48 BP 81/52 09/17/21 08:00 Pulse Ox 94 L 09/17/21 08:00 Intake & Output 09/16/21 09/17/21 09/17/21 18:59 06:59 18:59 Intake Total 240 400 100 Output Total 500 Balance -260 400 100 Intake: Intake, IV Titration 100 100 Amount Piperacillin-Tazobactam 3 100 100 .375 gm In Sodium Chloride 0.9% 100 ml @ 25 mls/hr IVPB Q8HR [facility] Rx# :[id number] Oral 240 300 Output: Urine 500 Other: Voiding Method Urinal Diaper Incontinent # Voids 3 1 # Bowel Movements 0 2 - Exam PHYSICAL EXAM: VITAL SIGNS: Reviewed. GENERAL: Well-developed in no acute distress. HEENT: Head is normocephalic. Pupils are equal, round. Sclerae anicteric. Mucous membranes of the mouth are moist. NECK: Supple. No JVD or thyromegaly RESPIRATORY: Respirations even and unlabored. Lungs diminished to auscultation bilaterally. CARDIO: Regular rate and rhythm. S1 and S2 heard. No murmur or gallops. EXTREMITIES: Normal range of motion. No clubbing or cyanosis. Peripheral pulses intact. Negative for bilateral lower extremity edema NEURO: Orientated to person, time, mood is appropriate - Labs CBC & Chem 7: 09/17/21 06:24 09/17/21 06:24 Labs: Abnormal Lab Results - Last 24 Hours (Table) 09/17/21 09/17/21 Range/Units 06:24 06:24 RBC 3.30 L (4.40-5.60) X 10*6/uL Hgb 10.7 L (13.0-17.0) g/dL Hct 34.0 L (39.6-50.0) % MCV 103.0 H (80.0-97.0) fL MCH 32.4 H (27.0-32.0) pg MCHC 31.5 L (32.0-37.0) g/dL Carbon Dioxide 32.8 H (20.0-27.5) mmol/L Anion Gap 4.90 L (10.00-18.00) mmol/L BUN/Creatinine Ratio 20.53 H (12.00-20.00) Ratio Calcium 8.1 L (8.7-10.3) mg/dL Albumin 3.0 L (3.8-4.9) g/dL Albumin/Globulin Ratio 0.93 L (1.60-3.17) g/dL Microbiology - Last 24 Hours (Table) 09/14/21 03:15 Blood Culture - Preliminary Blood No Growth after 72 hours 09/14/21 03:25 Blood Culture - Preliminary Blood No Growth after 72 hours Assessment and Plan Assessment: elevated troponins probably secondary to hypoxia and supply and demand mismatch aspiration pneumonia sick sinus syndrome status post permanent pacemaker History of coronary artery disease with previous angioplasty and known chronic total occlusion of LAD Plan: Continue with Nitropaste to control chest pain continue with all other current cardiac medications continue with supplemental oxygen and titrate as tolerated continue with telemetry monitoring Further recommendations based on clinical course The above impression and plan of care have been discussed and directed by the signing physician. Shawna Rivero, nurse practitioner, acting as scribe for signing physician.
--- NOTE | 2021-09-17 13:47 | P.PN ---
Subjective Progress Note Date: 09/17/21 HISTORY OF PRESENT ILLNESS This is an 89-year-old male patient of Dr. Thornton currently at [facility] for subacute rehab with past medical history of coronary artery disease status post angioplasty and chronic total occlusion of the LAD, 6 sinus syndrome status post permanent recent non-ST elevated myocardial infarction and pacemaker implantation 08/26/2021, persistent atrial fibrillation on eliquis, CVA, hypertension, hyperlipidemia, moderate aortic stenosis, generalized osteoarthri tis, glaucoma, short-term memory deficit. Patient was recently at [facility] and discharged on 09/[address] [facility] after he was treated for acute hypoxic respiratory failure from aspiration pneumonia along with acute delirium. Patient developed difficulty in breathing with coughing and gasping, decreased pulse ox and was transferred to [facility] emergency center for evaluation. His pulse ox on arrival was 98% on 2 L nasal cannula. Respiratory rate 2226, heart rate 101, afebrile, blood pressure 137/90. WBC 9.6, hemoglobin 11.4, platelet count 322. INR 1.3. Sodium 135, potassium 4.4, chloride 103, CO2 28, BUN 23 and creatinine 0.76. Blood sugar 151. Lactic acid 1.1. Calcium 8.2. Total bilirubin 0.8, AST 30, ALT 20, alkaline phosphatase 61. Troponin 0.259 and 0.269. Albumin 2.8. Urinalysis showed protein trace, no UTI. Influenza A, influenza B, RSV, COVID-19 all negative. Chest x-ray reveals bilateral patchy pneumonia. No definite heart failure. Patient was admitted to the cardiac stepdown unit, consult requested with cardiology, pulmonary medicine and patient started on Zosyn IV piggyback along with nebulizer treatments. 09/15: Patient has been seen by speech therapy with recommendations for chopped diet with honey thick liquids and one-to-one supervision. Patient was seen today sitting up and recliner eating his breakfast on his own, 8 is at his bedside. Patient is awake and alert. No respiratory distress noted. Patient's been afebrile, heart rate 80, blood pressure 102/72, pulse ox 96% on 2 L nasal cannula. ProBNP 9760, pro-calcitonin 0.06. Patient is followed by pulmonary medicine and continued on Zosyn and Lasix 20 mg IV every 24 hours. Cardiology plans to continue eliquis and Plavix. Echocardiogram reveals EF of 25-30%, global decrease in contractility in the apical and mid portions. 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 Mild gradient across the aortic valve with mild aortic stenosis, left atrial enlargement and moderate mitral regurgitation, trivial pericardial effusion. Patient was previously noted to be in no CODE STATUS but yesterday afternoon, patient's daughter brought in documentation for full CODE STATUS this CODE STATUS was changed to full code. Apparently later in the evening, daughter returned and wanted to change him back to no code. At this point patient's family is to have a family discussion regarding CODE STATUS. Also family related to the patient's nurse that discharge plan is to go [facility] [place]. manager java updated regarding this. Patient will be transferred to [facility] with telemetry. 09/16: Patient was observed to have aspiration today with his foot this morning, chest x-ray was requested, per and did talk with family back and forth about aggressive management including PEG tube, feeding tube or artificial feeding has not came with any result this point. 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 Apparently family still interested to transfer patient one of the [facility] [place] for more physical therapy which might happen sometimes early this week. 09/17: Patient is doing slightly better today has been slightly with confuse, was seen pulmonary today and review chest x-ray compared to the one from 48 hours ago slight interstitial congestion from CHF aspiration pneumonia has been much better. Patient was switched to Zosyn and seems to do well with it so far. Also patient was evaluated by speech and was place on Thick-It beside current management. The plan still to stabilize patient probably transfer back [facility] apparently the family and patient planning to go to one of the subacute rehab in [place]. REVIEW OF SYSTEMS Constitutional: No fever, no chills, no night sweats. No weight change. No weakness, fatigue or lethargy. No daytime sleepiness. EENT: No headache. No blurred vision or double vision, no loss of vision. No loss of Hearing, no ringing in the ears, no dizziness. No nasal drainage or congestion. No epistaxis. No sore throat. Lungs: No shortness of breath, reports cough, reports sputum production. No wheezing. Cardiovascular: No chest pain, no lower extremity edema. No palpitations. No paroxysmal nocturnal dyspnea. No orthopnea. No lightheadedness or dizziness. No syncopal episodes. Abdominal: No abdominal pain. No nausea, vomiting. No diarrhea. No constipation. No bloody or tarry stools. No loss of appetite. Genitourinary: No dysuria, increased frequency, urgency. No urinary retention. Musculoskeletal: No myalgias. No muscle weakness, no gait dysfunction, no frequent falls. No back pain. No neck pain. Integumentary: No wounds, no lesions. No rash or pruritus. No unusual bruising. No change in hair or nails. Neurologic: No aphasia. No facial droop. No change in mentation. No head injury. No headache. No paralysis. No paresthesia. Psychiatric: No depression. No anxiety. No mood swings. Endocrine: No abnormal blood sugars. No weight change. No excessive sweating or thirst. No cold intolerance. PHYSICAL EXAMINATION Gen: This is an 89-year-old male. His resting in bed appears to be comfortable. No acute respiratory distress is noted. HEENT: Head is atraumatic, normocephalic. Pupils equal, round. Sclerae is anicteric. NECK: Supple. No JVD. No lymphadenopathy. No thyromegaly. LUNGS: Diminished with a few scattered rhonchi. No intercostal retractions. HEART: Irregular rate and rhythm. No murmur. ABDOMEN: Soft. Bowel sounds are present. No masses. No tenderness. EXTREMITIES: No pedal edema. No calf tenderness. NEUROLOGICAL: Patient is awake, alert and oriented to person and place. Cranial nerves 2 through 12 are grossly intact. ASSESSMENT AND PLAN 1 severe dyspnea and shortness of breath: Combination of aspiration pneumonia along with systolic heart failure continue to treat both at this point. 2. Aspiration pneumonia. Continue patient on Zosyn IV piggyback, DuoNeb treatments 4 times daily and as needed, Pulmicort 1 mg twice daily, consult with pulmonary medicine, speech therapy consultation. Sadly patient continued to have aspiration on daily basis we should check if patient should go on nothing by mouth with PEG tube feeding at this point. 3. Elevated troponin, with severe cardiomyopathy, patient was started on Ranexa and/or Lipitor aspirin and furosemide. His a medical management no further a ngiogram will be done at this point. 4. Acute on chronic systolic heart failure. With ejection fraction of 25-30 percentile, still on IV Lasix along with Ranexa, isosorbide, metoprolol patient probably can benefit from smaller dose of ARB. 5. History of coronary artery disease status post angioplasty and chronic total occlusion of the LAD. 6. Sick sinus syndrome status post permanent pacemaker, stable. 7. Persistent atrial fibrillation. Continue eliquis 5 mg twice daily, Toprol- XL 25 mg daily. Pulse rate has been well controlled. 8. History of CVA. Still have slight weakness in the right side along with dysphagia and severe abnormal balance and gait. 9 Hyperlipidemia. Continue atorvastatin 40 mg daily. 10. Moderate aortic stenosis, we'll continue medical management this point patient need to continue follow-up with cardiology if this become worse in the future might benefit from TAVR. 11. 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 12. Generalized debility. PT and OT consults. We'll continue physical therapy. Patient will require subacute possible long-term rehab. DISCHARGE PLAN [facility]charge [facility] [place] on Saturday. Objective - Vital Signs Vital signs: Vital Signs Temp 98.6 F 09/17/21 08:00 Pulse 62 09/17/21 08:00 Resp 21 09/17/21 04:48 BP 81/52 09/17/21 08:00 Pulse Ox 94 L 09/17/21 08:00 Intake & Output 09/16/21 09/17/21 09/17/21 18:59 06:59 18:59 Intake Total 240 400 100 Output Total 500 Balance -260 400 100 Intake: Intake, IV Titration 100 100 Amount Piperacillin-Tazobactam 3 100 100 .375 gm In Sodium Chloride 0.9% 100 ml @ 25 mls/hr IVPB Q8HR [facility] Rx# :[id number] Oral 240 300 Output: Urine 500 Other: Voiding Method Urinal Diaper Incontinent # Voids 3 1 # Bowel Movements 0 1 - Labs CBC & Chem 7: 09/17/21 06:24 09/17/21 06:24 Labs: Abnormal Lab Results - Last 24 Hours (Table) 09/17/21 09/17/21 Range/Units 06:24 06:24 RBC 3.30 L (4.40-5.60) X 10*6/uL Hgb 10.7 L (13.0-17.0) g/dL Hct 34.0 L (39.6-50.0) % MCV 103.0 H (80.0-97.0) fL MCH 32.4 H (27.0-32.0) pg MCHC 31.5 L (32.0-37.0) g/dL Carbon Dioxide 32.8 H (20.0-27.5) mmol/L Anion Gap 4.90 L (10.00-18.00) mmol/L BUN/Creatinine Ratio 20.53 H (12.00-20.00) Ratio Calcium 8.1 L (8.7-10.3) mg/dL Albumin 3.0 L (3.8-4.9) g/dL Albumin/Globulin Ratio 0.93 L (1.60-3.17) g/dL Microbiology - Last 24 Hours (Table) 09/14/21 03:15 Blood Culture - Preliminary Blood No Growth after 72 hours 09/14/21 03:25 Blood Culture - Preliminary Blood No Growth after 72 hours
[2021-09-17] MEDS: ASPIRIN 81 MG PO SCH (15:42)
[2021-09-17] MEDS: MELATONIN 1 MG TAB PO SCH (21:14)
[2021-09-17] MEDS: ATORVASTATIN 40 MG TAB PO SCH (21:14)
[2021-09-18] MEDS: BUDESONIDE 1 MG/2 ML NEBU INHALATION SCH ×2 (07:13→19:09)
[2021-09-18] MEDS: IPRATROPIUM-ALBUTEROL 3 ML NEB INHALATION SCH ×4 (07:14→19:09)
[2021-09-18] MEDS: APIXABAN 5 MG TAB PO SCH ×2 (07:55→16:29)
[2021-09-18] MEDS: PANTOPRAZOLE 40 MG TABLET PO SCH (07:55)
[2021-09-18] MEDS: ISOSORBIDE MONONITRATE ER 30 MG TAB.ER.24H PO SCH (07:56)
[2021-09-18] MEDS: DOCUSATE 100 MG CAP PO SCH ×2 (07:56→16:29)
[2021-09-18] MEDS: PIPERACILLIN-TAZOBACTAM 3.375 GM in SODIUM CHLORIDE 0.9% 100 ML IVPB SCH ×3 (07:56→23:54)
[2021-09-18] MEDS: polyethylene glycoL 3350 17 GM POWD.PACK PO SCH (07:57)
[2021-09-18] MEDS: RANOLAZINE 500 MG TAB.ER.12H PO SCH ×2 (07:58→20:51)
[2021-09-18] MEDS: METOPROLOL SUCCINATE (ER) 25 MG TAB.ER.24H PO SCH (07:58)
[2021-09-18] MEDS: NYSTATIN 100,000 UNIT/ML SUSP 500,000 UNIT/5 ML CUP PO SCH ×4 (08:06→20:51)
[2021-09-18] MEDS: FUROSEMIDE 20 MG TAB PO SCH ×2 (08:07→16:29)
--- NOTE | 2021-09-18 10:11 | P.DS ---
Providers Date of admission: 09/14/21 07:03 Expected date of discharge: 09/18/21 Attending physician: Lebron Thornton Consults: 09/14/21 07:04 Consult Physician Urgent Consulting Provider: Dannie Aguilar Consult Reason/Comments: elevated trop, known CAD Do you want consulting provider notified?: Already Contacted 09/14/21 09:22 Consult Physician Routine Consulting Provider: Jimenez Dumont Consult Reason/Comments: asp pn Do you want consulting provider notified?: Yes Primary care physician: Lebron Thornton [facility] Course: HISTORY OF PRESENT ILLNESS This is an 89-year-old male patient of Dr. Thornton currently at [facility] for subacute rehab with past medical history of coronary artery disease status post angioplasty and chronic total occlusion of the LAD, 6 sinus syndrome status post permanent recent non-ST elevated myocardial infarction and pacemaker implantation 08/26/2021, persistent atrial fibrillation on eliquis, CVA, hypertension, hyperlipidemia, moderate aortic stenosis, generalized osteoarthritis, glaucoma, short-term memory deficit. Patient was recently at [facility] and discharged on 09/01 to [facility] after he was treated for acute hypoxic respiratory failure from aspiration pneumonia along with acute delirium. Patient developed difficulty in breathing with coughing and gasping, decreased pulse ox and was transferred to [facility] emergency center for evaluation. His pulse ox on arrival was 98% on 2 L nasal cannula. Respiratory rate 2226, heart rate 101, afebrile, blood pressure 137/90. WBC 9.6, hemoglobin 11.4, platelet count 322. INR 1.3. Sodium 135, potassium 4.4, chloride 103, CO2 28, BUN 23 and creatinine 0.76. Blood sugar 151. Lactic acid 1.1. Calcium 8.2. Total bilirubin 0.8, AST 30, ALT 20, alkaline phosphatase 61. Troponin 0.259 and 0.269. Albumin 2.8. Urinalysis showed protein trace, no UTI. Influenza A, influenza B, RSV, COVID-19 all negative. Chest x-ray reveals bilateral patchy pneumonia. No definite heart failure. Patient was admitted to the cardiac stepdown unit, consult requested with cardiology, pulmonary medicine and patient started on Zosyn IV piggyback along with nebulizer treatments. 09/15: Patient has been seen by speech therapy with recommendations for chopped diet with honey thick liquids and one-to-one supervision. Patient was seen today sitting up and recliner eating his breakfast on his own, 8 is at his bedside. Patient is awake and alert. No respiratory distress noted. Patient's been afebrile, heart rate 80, blood pressure 102/72, pulse ox 96% on 2 L nasal cannula. ProBNP 9760, pro-calcitonin 0.06. Patient is followed by pulmonary medicine and continued on Zosyn and Lasix 20 mg IV every 24 hours. Cardiology plans to continue eliquis and Plavix. Echocardiogram reveals EF of 25-30%, global decrease in contractility in the apical and mid portions. 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 Mild gradient across the aortic valve with mild aortic stenosis, left atrial enlargement and moderate mitral regurgitation, trivial pericardial effusion. Patient was previously noted to be in no CODE STATUS but yesterday afternoon, patient's daughter brought in documentation for full CODE STATUS this CODE STATUS was changed to full code. Apparently later in the evening, daughter returned and wanted to change him back to no code. At this point patient's family is to have a family discussion regarding CODE STATUS. Also family related to the patient's nurse that discharge plan is to go to a residential in [place]. project safety manager updated regarding this. Patient will be transferred to [facility] with telemetry. 09/16: Patient was observed to have aspiration today with his foot this morning, chest x-ray was requested, per and did talk with family back and forth about aggressive management including PEG tube, feeding tube or artificial feeding has not came with any result this point. 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 Apparently family still interested to transfer patient one of the residential in [place] for more physical therapy which might happen sometimes early this week. 09/17: Patient is doing slightly better today has been slightly with confuse, was seen pulmonary today and review chest x-ray compared to the one from 48 hours ago slight interstitial congestion from CHF aspiration pneumonia has been much better. Patient was switched to Zosyn and seems to do well with it so far. Also patient was evaluated by speech and was place on Thick-It beside current management. The plan still to stabilize patient probably transfer back to residential rehab apparently the family and patient planning to go to one of the subacute rehab in [place]. 09/18: Patient has been followed by pulmonary medicine and cardiology. He denies any new complaints today and states he is feeling well. He states he is ready for discharge. We will transition IV antibiotics to oral Levaquin. Patient has been afebrile, heart rate in the 80s and 90s, blood pressure 132/87, pulse ox 96% on 3 L nasal cannula. Blood culture no growth after 96 hours. Patient will be discharged to subacute rehab today in stable condition. DISCHARGE DIAGNOSES 1 severe dyspnea and shortness of breath: Combination of aspiration pneumonia along with acute systolic heart failure 2. Aspiration pneumonia. 3. Elevated troponin, with severe cardiomyopathy 4. Acute on chronic systolic heart failure. With ejection fraction of 25-30 % 5. History of coronary artery disease status post angioplasty and chronic total occlusion of the LAD. 6. Sick sinus syndrome status post permanent pacemaker, stable. 7. Persistent atrial fibrillation. 8. History of CVA. 9 Hyperlipidemia. 10. Moderate aortic stenosis 11. 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 12. Generalized debility. Patient will require subacute possible long-term rehab. DISCHARGE PLAN Subacute rehab Greater than 35 minutes was utilized and coordinating patient's discharge. Impression and plan of care have been directed as dictated by the signing physician. Kimberly Koehler nurse practitioner acting as scribe for signing physician.. Patient Condition at Discharge: Serious Plan - Discharge Summary Discharge Rx Participant: No New Discharge Prescriptions: New Furosemide [Lasix] 20 mg PO BID@0900,1600 tab Budesonide [Pulmicort] 1 mg INHALATION RT-BID ml Continue Aspirin 81 mg PO DAILY@1700 Nitroglycerin Sl Tabs [Nitrostat] 1 tab SUBLINGUAL Q5M PRN #50 tab PRN Reason: Chest Pain bisacodyL 10 mg RECTAL DAILY PRN PRN Reason: Constipation Nystatin 100,000 Unit/ml Susp [Mycostatin Oral Susp] 5 ml PO QID Magic Cup 1 can PO TID@0800,1200,1700 Lactose-Reduced Food [Ensure Plus] 120 ml PO TID@0800,1200,1700 Apixaban [Eliquis] 5 mg PO BID@0800,1700 Metoprolol Succinate [Toprol XL] 25 mg PO DAILY@0800 Isosorbide Mononitrate ER [Imdur] 30 mg PO DAILY@0800 Atorvastatin [Lipitor] 40 mg PO HS@2100 Magnesium Hydroxide [Milk of Magnesia] 2,400 mg PO DAILY PRN PRN Reason: Constipation Polyethylene Glycol 3350 [Miralax] 17 gm PO DAILY@0800 Na Phos,M-B/Na Phos,Di-Ba [Fleet Adult] 133 ml RECTAL DAILY PRN PRN Reason: Constipation Acetaminophen Tab [Tylenol] 650 mg PO Q6H PRN PRN Reason: Pain Ipratropium-Albuterol Nebulize [Duoneb 0.5 mg-3 mg/3 ml Soln] 3 ml INHALATION RT-Q6H PRN PRN Reason: Shortness Of Breath Ranolazine [Ranolazine ER] 500 mg PO BID@0800,2100 Docusate [Colace] 100 mg PO BID@0800,1700 Melatonin 1 mg PO HS@2200 Levofloxacin [Levaquin] 250 mg PO DAILY@0800 #7 tab Discharge Medication List Aspirin 81 mg PO DAILY@1700 09/18/13 [History] Nitroglycerin Sl Tabs [Nitrostat] 1 tab SUBLINGUAL Q5M PRN #50 tab 05/19/18 [Rx] Acetaminophen Tab [Tylenol] 650 mg PO Q6H PRN 09/14/21 [History] Apixaban [Eliquis] 5 mg PO BID@0800,1700 09/14/21 [History] Atorvastatin [Lipitor] 40 mg PO HS@2100 09/14/21 [History] Docusate [Colace] 100 mg PO BID@0800,1700 09/14/21 [History] Ipratropium-Albuterol Nebulize [Duoneb 0.5 mg-3 mg/3 ml Soln] 3 ml INHALATION RT-Q6H PRN 09/14/21 [History] Isosorbide Mononitrate ER [Imdur] 30 mg PO DAILY@0800 09/14/21 [History] Lactose-Reduced Food [Ensure Plus] 120 ml PO TID@0800,1200,1700 09/14/21 [History] Magic Cup 1 can PO TID@0800,1200,1700 09/14/21 [History] Magnesium Hydroxide [Milk of Magnesia] 2,400 mg PO DAILY PRN 09/14/21 [History] Melatonin 1 mg PO HS@2200 09/14/21 [History] Metoprolol Succinate [Toprol XL] 25 mg PO DAILY@0800 09/14/21 [History] Na Phos,M-B/Na Phos,Di-Ba [Fleet Adult] 133 ml RECTAL DAILY PRN 09/14/21 [History] Nystatin 100,000 Unit/ml Susp [Mycostatin Oral Susp] 5 ml PO QID 09/14/21 [History] Polyethylene Glycol 3350 [Miralax] 17 gm PO DAILY@0800 09/14/21 [History] Ranolazine [Ranolazine ER] 500 mg PO BID@0800,2100 09/14/21 [History] bisacodyL 10 mg RECTAL DAILY PRN 09/14/21 [History] Budesonide [Pulmicort] 1 mg INHALATION RT-BID ml 09/18/21 [Rx] Furosemide [Lasix] 20 mg PO BID@0900,1600 tab 09/18/21 [Rx] Levofloxacin [Levaquin] 250 mg PO DAILY@0800 #7 tab 09/18/21 [Rx] Follow up Appointment(s)/Referral(s): Lebron Thornton MD [Primary Care Provider] - 1 Week (AFTER DISCHARGE FROM REHAB) Jimenez Dumont MD [STAFF PHYSICIAN] - 1 Week Mateusz Roque MD [STAFF PHYSICIAN] - 1 Week Discharge Disposition: TRANSFER TO SNF/ECF
--- NOTE | 2021-09-18 12:05 | P.PN ---
Subjective Progress Note Date: 09/18/21 HISTORY OF PRESENT ILLNESS: This is a pleasant 89-year-old gentleman with a past medical history significant for coronary artery disease status post angioplasty and chronic total occlusion of the LAD, bradycardia status post permanent pacemaker, persistent atrial fibrillation on Eliquis. He follows in the office with Dr Roque. We have been asked to see in consultation for elevated troponin and known coronary artery disease. patient was a recent STEMI and had a permanent pacemaker placed on August 26, 2021. He was at [facility] for rehab. Apparently patient was found in his room dean, diaphoretic, and oxygen saturation in the 70s. patient was brought into the ER and given supplemental oxygen. He is examined today in the ER sitting in bed resting comfortably A&O 1-2. He denies chest pain or shortness of breath. patient is sinus rhythm. troponins are 0.269 and 0.259 probably related to oxygen supply and demand mismatch. Patient was recently admitted for aspiration pneumonia. chest x-ray shows bilateral patchy pneumonia no definite heart failure. He pacer site has a hematoma and ecchymosis, will order pressure dressing to be applied. 09/15/2021 patient examined this morning. He is sitting up in the chair. Patient denies chest pain or pressure. He denies shortness of breath. Telemetry reveals atrial fibrillation with a heart rate in the 90s. Echocardiogram completed revealing ejection fraction 25-30% with moderate to severe MR. 09/18/2021 Patient examined this morning to bedside. Patient denies shortness of breath. He denies having any chest pain or pressure. Vital signs are stable. PHYSICAL EXAM: VITAL SIGNS: Reviewed. GENERAL: Well-developed in no acute distress. NECK: Supple. No JVD or thyromegaly LUNGS: Respirations even and unlabored. Lungs diminished to auscultation bilaterally. HEART: Irregular rate and rhythm. S1 and S2 heard. Systolic murmur noted. EXTREMITIES: Normal range of motion. No clubbing or cyanosis. Peripheral pulses intact. No lower extremity edema ASSESSMENT: Aspiration pneumonia Elevated troponin, not indicative of acute coronary syndrome Persistent atrial fibrillation, anticoagulated with Eliquis History of coronary artery disease with previous angioplasty and known chronic total occlusion of LAD History of sick sinus syndrome with recent pacemaker implantation Valvular heart disease Hyperlipidemia PLAN: Continue current cardiac medications Patient stable from a cardiac standpoint We will sign off. Please reconsult if needed Nurse practitioner note has been reviewed by physician. Signing provider agrees with the documented findings, assessment, and plan of care. Objective - Vital Signs Vital signs: Vital Signs Temp 97.9 F 09/18/21 07:04 Pulse 90 09/18/21 07:33 Resp 17 09/18/21 07:04 BP 132/87 09/18/21 07:04 Pulse Ox 96 09/18/21 07:16 Intake & Output 09/17/21 09/18/21 09/18/21 18:59 06:59 18:59 Intake Total 100 400 Balance 100 400 Intake: Intake, IV Titration 100 100 Amount Piperacillin-Tazobactam 3 100 100 .375 gm In Sodium Chloride 0.9% 100 ml @ 25 mls/hr IVPB Q8HR [facility] Rx# :[id number] Oral 300 Other: Voiding Method Urinal Urinal Diaper Diaper Incontinent Incontinent # Voids 2 2 # Bowel Movements 1 0 - Labs CBC & Chem 7: 09/17/21 06:24 09/17/21 06:24 Labs: Microbiology - Last 24 Hours (Table) 09/14/21 03:15 Blood Culture - Preliminary Blood No Growth after 96 hours 09/14/21 03:25 Blood Culture - Preliminary Blood No Growth after 96 hours
--- NOTE | 2021-09-18 14:40 | FL ---
Modified barium swallow. HISTORY: Dysphagia. Modified barium swallow was performed with the department of speech pathology. The patient was prese nted with various consistencies of barium. There is evidence of silent aspiration with thin liquid barium. Full report is to follow from the dep artment of speech pathology. Impression: Aspiration
[2021-09-18] MEDS: ASPIRIN 81 MG PO SCH (16:29)
[2021-09-18] MEDS: MELATONIN 1 MG TAB PO SCH (20:51)
[2021-09-18] MEDS: ATORVASTATIN 40 MG TAB PO SCH (20:51)
[2021-09-19 02:51] VITALS: RESP 18
[2021-09-19 07:53] VITALS: BP 109/80; TEMP 97.5
[2021-09-19] MEDS: RANOLAZINE 500 MG TAB.ER.12H PO SCH (08:18)
[2021-09-19] MEDS: NYSTATIN 100,000 UNIT/ML SUSP 500,000 UNIT/5 ML CUP PO SCH ×2 (08:18→12:56)
[2021-09-19] MEDS: ISOSORBIDE MONONITRATE ER 30 MG TAB.ER.24H PO SCH (08:18)
[2021-09-19] MEDS: METOPROLOL SUCCINATE (ER) 25 MG TAB.ER.24H PO SCH (08:18)
[2021-09-19] MEDS: DOCUSATE 100 MG CAP PO SCH (08:18)
[2021-09-19] MEDS: FUROSEMIDE 20 MG TAB PO SCH (08:18)
[2021-09-19] MEDS: APIXABAN 5 MG TAB PO SCH (08:18)
[2021-09-19] MEDS: PANTOPRAZOLE 40 MG TABLET PO SCH (08:18)
[2021-09-19] MEDS: polyethylene glycoL 3350 17 GM POWD.PACK PO SCH (08:18)
[2021-09-19] MEDS: PIPERACILLIN-TAZOBACTAM 3.375 GM in SODIUM CHLORIDE 0.9% 100 ML IVPB SCH (08:18)
[2021-09-19] MEDS: IPRATROPIUM-ALBUTEROL 3 ML NEB INHALATION SCH ×2 (09:12→12:17)
[2021-09-19] MEDS: BUDESONIDE 1 MG/2 ML NEBU INHALATION SCH (09:12)
--- NOTE | 2021-09-19 09:38 | P.PN ---
Subjective Progress Note Date: 09/18/21 HISTORY OF PRESENT ILLNESS This is an 89-year-old male patient of Dr. Thornton currently at [facility] for subacute rehab with past medical history of coronary artery disease status post angioplasty and chronic total occlusion of the LAD, 6 sinus syndrome status post permanent recent non-ST elevated myocardial infarction and pacemaker implantation 08/26/2021, persistent atrial fibrillation on eliquis, CVA, hypertension, hyperlipidemia, moderate aortic stenosis, generalized osteoarthri tis, glaucoma, short-term memory deficit. Patient was recently at [facility] and discharged on 09/01 to [facility] after he was treated for acute hypoxic respiratory failure from aspiration pneumonia along with acute delirium. Patient developed difficulty in breathing with coughing and gasping, decreased pulse ox and was transferred to [facility] emergency center for evaluation. His pulse ox on arrival was 98% on 2 L nasal cannula. Respiratory rate 2226, heart rate 101, afebrile, blood pressure 137/90. WBC 9.6, hemoglobin 11.4, platelet count 322. INR 1.3. Sodium 135, potassium 4.4, chloride 103, CO2 28, BUN 23 and creatinine 0.76. Blood sugar 151. Lactic acid 1.1. Calcium 8.2. Total bilirubin 0.8, AST 30, ALT 20, alkaline phosphatase 61. Troponin 0.259 and 0.269. Albumin 2.8. Urinalysis showed protein trace, no UTI. Influenza A, influenza B, RSV, COVID-19 all negative. Chest x-ray reveals bilateral patchy pneumonia. No definite heart failure. Patient was admitted to the cardiac stepdown unit, consult requested with cardiology, pulmonary medicine and patient started on Zosyn IV piggyback along with nebulizer treatments. 09/15: Patient has been seen by speech therapy with recommendations for chopped diet with honey thick liquids and one-to-one supervision. Patient was seen today sitting up and recliner eating his breakfast on his own, 8 is at his bedside. Patient is awake and alert. No respiratory distress noted. Patient's been afebrile, heart rate 80, blood pressure 102/72, pulse ox 96% on 2 L nasal cannula. ProBNP 9760, pro-calcitonin 0.06. Patient is followed by pulmonary medicine and continued on Zosyn and Lasix 20 mg IV every 24 hours. Cardiology plans to continue eliquis and Plavix. Echocardiogram reveals EF of 25-30%, global decrease in contractility in the apical and mid portions. 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 Mild gradient across the aortic valve with mild aortic stenosis, left atrial enlargement and moderate mitral regurgitation, trivial pericardial effusion. Patient was previously noted to be in no CODE STATUS but yesterday afternoon, patient's daughter brought in documentation for full CODE STATUS this CODE STATUS was changed to full code. Apparently later in the evening, daughter returned and wanted to change him back to no code. At this point patient's family is to have a family discussion regarding CODE STATUS. Also family related to the patient's nurse that discharge plan is to go to a halfway in [place]. manager mobility updated regarding this. Patient will be transferred to [facility] with telemetry. 09/16: Patient was observed to have aspiration today with his foot this morning, chest x-ray was requested, per and did talk with family back and forth about aggressive management including PEG tube, feeding tube or artificial feeding has not came with any result this point. 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 Apparently family still interested to transfer patient one of the halfway in [place] for more physical therapy which might happen sometimes early this week. 09/17: Patient is doing slightly better today has been slightly with confuse, was seen pulmonary today and review chest x-ray compared to the one from 48 hours ago slight interstitial congestion from CHF aspiration pneumonia has been much better. Patient was switched to Zosyn and seems to do well with it so far. Also patient was evaluated by speech and was place on Thick-It beside current management. The plan still to stabilize patient probably transfer back to halfway rehab apparently the family and patient planning to go to one of the subacute rehab in [place]. 09/18: Patient has been followed by pulmonary medicine and cardiology. He denies any new complaints today and states he is feeling well. He states he is ready for discharge. We will transition IV antibiotics to oral Levaquin. Patient has been afebrile, heart rate in the 80s and 90s, blood pressure 132/87, pulse ox 96% on 3 L nasal cannula. Blood culture no growth after 96 hours. Patient will not be going to subacute rehab in [place]. Family is looking at a place in [place] this evening. Discharge will be held until tomorrow. REVIEW OF SYSTEMS Constitutional: No fever, no chills, no night sweats. No weight change. No weakness, fatigue or lethargy. No daytime sleepiness. EENT: No headache. No blurred vision or double vision, no loss of vision. No loss of Hearing, no ringing in the ears, no dizziness. No nasal drainage or congestion. No epistaxis. No sore throat. Lungs: No shortness of breath, reports cough, reports sputum production. No wheezing. Cardiovascular: No chest pain, no lower extremity edema. No palpitations. No paroxysmal nocturnal dyspnea. No orthopnea. No lightheadedness or dizziness. No syncopal episodes. Abdominal: No abdominal pain. No nausea, vomiting. No diarrhea. No constipation. No bloody or tarry stools. No loss of appetite. Genitourinary: No dysuria, increased frequency, urgency. No urinary retention. Musculoskeletal: No myalgias. No muscle weakness, no gait dysfunction, no frequent falls. No back pain. No neck pain. Integumentary: No wounds, no lesions. No rash or pruritus. No unusual bruising. No change in hair or nails. Neurologic: No aphasia. No facial droop. No change in mentation. No head injury. No headache. No paralysis. No paresthesia. Psychiatric: No depression. No anxiety. No mood swings. Endocrine: No abnormal blood sugars. No weight change. No excessive sweating or thirst. No cold intolerance. PHYSICAL EXAMINATION Gen: This is an 89-year-old male. His resting in bed appears to be comfortable. No acute respiratory distress is noted. HEENT: Head is atraumatic, normocephalic. Pupils equal, round. Sclerae is anicte mack. NECK: Supple. No JVD. No lymphadenopathy. No thyromegaly. LUNGS: Diminished with a few scattered rhonchi. No intercostal retractions. HEART: Irregular rate and rhythm. No murmur. ABDOMEN: Soft. Bowel sounds are present. No masses. No tenderness. EXTREMITIES: No pedal edema. No calf tenderness. NEUROLOGICAL: Patient is awake, alert and oriented to person and place. Cranial nerves 2 through 12 are grossly intact. ASSESSMENT AND PLAN 1 severe dyspnea and shortness of breath: Combination of aspiration pneumonia along with systolic heart failure continue to treat both at this point. 2. Aspiration pneumonia. Continue patient on Zosyn IV piggyback, DuoNeb t reatments 4 times daily and as needed, Pulmicort 1 mg twice daily, consult with pulmonary medicine, speech therapy consultation. Sadly patient continued to have aspiration on daily basis we should check if patient should go on nothing by mouth with PEG tube feeding at this point. 3. Elevated troponin, with severe cardiomyopathy, patient was started on Ranexa and/or Lipitor aspirin and furosemide. His a medical management no further angiogram will be done at this point. 4. Acute on chronic systolic heart failure. With ejection fraction of 25-30 percentile, still on IV Lasix along with Ranexa, isosorbide, metoprolol patient probably can benefit from smaller dose of ARB. 5. History of coronary artery disease status post angioplasty and chronic total occlusion of the LAD. 6. Sick sinus syndrome status post permanent pacemaker, stable. 7. Persistent atrial fibrillation. Continue eliquis 5 mg twice daily, Toprol- XL 25 mg daily. Pulse rate has been well controlled. 8. History of CVA. Still have slight weakness in the right side along with dysphagia and severe abnormal balance and gait. 9 Hyperlipidemia. Continue atorvastatin 40 mg daily. 10. Moderate aortic stenosis, we'll continue medical management this point patient need to continue follow-up with cardiology if this become worse in the future might benefit from TAVR. 11. 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 12. Generalized debility. PT and OT consults. We'll continue physical therap y. Patient will require subacute possible long-term rehab. DISCHARGE PLAN Discharge to subacute rehab. Impression and plan of care have been directed as dictated by the signing physician. Kimberly Koehler nurse practitioner acting as scribe for signing physician. Objective - Vital Signs Vital signs: Vital Signs Temp 97.5 F L 09/19/21 07:17 Pulse 84 09/19/21 07:17 Resp 18 09/19/21 07:17 BP 109/80 09/19/21 07:17 Pulse Ox 99 09/19/21 07:17 Intake & Output 09/18/21 09/19/21 09/19/21 18:59 06:59 18:59 Output Total 300 Balance -300 Output: Urine 300 Other: Voiding Method Urinal Urinal Diaper Diaper Incontinent Incontinent # Voids 2 # Bowel Movements 2 1 - Labs CBC & Chem 7: 09/17/21 06:24 09/17/21 06:24 Labs: Microbiology - Last 24 Hours (Table) 09/14/21 03:15 Blood Culture - Preliminary Blood No Growth after 120 hours 09/14/21 03:25 Blood Culture - Preliminary Blood No Growth after 120 hours
[2021-09-19 12:28] VITALS: PULSE 51
[2021-09-19 13:37] VITALS: BMI 23.0
== END 2021-09-19 13:40 | DRG 177 ==
LOC: EC 02:47 → 3SCARD 07:03 → UNDODISIN 12:36 → 4SSUR 09-16 17:43
PROVIDERS: ADMIT Internal Medicine Geriatric Medicine; ATTEND Internal Medicine Geriatric Medicine
DX: J69.0 Pneumonitis due to inhalation of food and vomit (principal); I50.23 Acute on chronic systolic (congestive) heart failure; J96.01 Acute respiratory failure with hypoxia; I48.19 Other persistent atrial fibrillation; L76.32 Postprocedural hematoma of skin and subcutaneous tissue following other procedure; I51.81 Takotsubo syndrome; I49.5 Sick sinus syndrome; F03.90 Unspecified dementia, unspecified severity, without behavioral disturbance, psychotic disturbance, mood disturbance, and anxiety; I11.0 Hypertensive heart disease with heart failure; Z20.822 Contact with and (suspected) exposure to COVID-19; I25.82 Chronic total occlusion of coronary artery; K75.9 Inflammatory liver disease, unspecified; I08.0 Rheumatic disorders of both mitral and aortic valves; I25.10 Atherosclerotic heart disease of native coronary artery without angina pectoris; R13.10 Dysphagia, unspecified; M15.9 Polyosteoarthritis, unspecified; H91.90 Unspecified hearing loss, unspecified ear; H40.9 Unspecified glaucoma; E78.5 Hyperlipidemia, unspecified; N40.1 Benign prostatic hyperplasia with lower urinary tract symptoms; N39.498 Other specified urinary incontinence; I25.2 Old myocardial infarction; R77.8 Other specified abnormalities of plasma proteins; R53.81 Other malaise; Z79.01 Long term (current) use of anticoagulants; Z79.82 Long term (current) use of aspirin; Z79.899 Other long term (current) drug therapy; Z87.19 Personal history of other diseases of the digestive system; Z86.73 Personal history of transient ischemic attack (TIA), and cerebral infarction without residual deficits; Z87.01 Personal history of pneumonia (recurrent); Z95.0 Presence of cardiac pacemaker; Z87.891 Personal history of nicotine dependence; Z98.61 Coronary angioplasty status; Z98.890 Other specified postprocedural states; Y83.1 Surgical operation with implant of artificial internal device as the cause of abnormal reaction of the patient, or of later complication, without mention of misadventure at the time of the procedure; Z82.3 Family history of stroke; Z80.8 Family history of malignant neoplasm of other organs or systems; Z82.49 Family history of ischemic heart disease and other diseases of the circulatory system; Z80.0 Family history of malignant neoplasm of digestive organs
CPT/HCPCS: 36415; 71045; 71046; 74230; 80053; 81003; 83605; 83880; 84145; 84484; 85025; 85027; 85610; 85730; 87040; 87636; 93005; 93306; 94640; 94760; 96365; 96375; 99285